=== PATIENT | male | born 1950 | race Caucasian/White ===

== ENCOUNTER 2017-11-16 12:29 | Inpatient (IN) | payer OTHER, BC ==
--- NOTE | 2017-11-16 12:36 | PDOC ---
History of Present Illness - General Stated Complaint: FALL,TINGLING RIGHT LEG Time Seen by Provider: 11/16/17 12:36 - History of Present Illness Initial Comments: 11/16/17 12:37 Mr. Garber is a 67 yo male w/ pmh of prostate cancer, rheumatoid arthritis, osteoarthritis, herniated discs, HLD, prostate cancer (in remission) who presents for evaluation of fall last night. [place] experienced sudden onset right leg weakness and fell, striking his head. He then went home and fell again while urinating as his leg again became weak. Mr. Garber hit his head when he fell last night. He reports he has had 2 weeks of intermittent loss of bowel control as well and is currently unable to raise his leg at all from the bed. Additionally, he reports occasional diarrhea and has noticed blood intermixed with his stool at times. The patient denies chest pain, shortness of breath, headache and dizziness. Denies fever, chills, nausea, vomit, diarrhea and constipation. Denies dysuria, frequency, urgency and hematuria. Allergies: Penicillins Past History - Past Medical History Allergies/Adverse Reactions: Allergies Allergy/AdvReac Type Severity Reaction Status Date / Time Penicillins Allergy Verified 11/16/17 12:40 Home Medications: Ambulatory Orders Alprazolam [Xanax] 8 mg PO HS 07/15/15 Olanzapine 10 mg PO DAILY 07/15/15 Oxycodone HCl/Acetaminophen [Oxycodone-Acetaminophen 10-325] 1 each PO TID 07/14 Simvastatin [Zocor -] 20 mg PO DAILY 07/15/15 Nicotine Patch [Nicoderm Patch -] 14 mg TD DAILY #30 patch 07/19/15 Anemia: No Asthma: No Cancer: Yes (BASAL CELL, PROSTATE CA) Cardiac Disorders: No CVA: No COPD: No CHF: No Dementia: No Diabetes: No GI Disorders: Yes (RECTAL BLEEDING, COLON POLYP) Disorders: Yes (PROSTATE CA SEEDING AND RADIATION) HTN: Yes Hypercholesterolemia: Yes Liver Disease: No Seizures: No Thyroid Disease: No - Surgical History Abdominal Surgery: Yes (HERNIA REPAIR 2007) Appendectomy: No Cardiac Surgery: No Cholecystectomy: No Lung Surgery: No Neurologic Surgery: No Orthopedic Surgery: No - Suicide/Smoking/Psychosocial Hx Smoking History: Current every day smoker Have you smoked in the past 12 months: Yes Number of Cigarettes Smoked Daily: 10 'Breaking Loose' booklet given: 02/22/12 Hx Alcohol Use: No Drug/Substance Use Hx: No Substance Use Type: None Hx Substance Use Treatment: No Review of Systems - Review of Systems Comments:: 11/16/17 12:38 GENERAL/CONSTITUTIONAL: No fever or chills. HEAD, EYES, EARS, NOSE AND THROAT: No change in vision. No ear pain or discharge. No sore throat. CARDIOVASCULAR: No chest pain or shortness of breath RESPIRATORY: No cough, wheezing, or hemoptysis. GASTROINTESTINAL: +Intermittent loss of bowel control for 2 weeks. Some diarrhea with occasional blood. No nausea, vomiting, or constipation. GENITOURINARY: No dysuria, frequency, or change in urination. MUSCULOSKELETAL: +Right leg weakness as described SKIN: No rash NEUROLOGIC: No headache, vertigo, loss of consciousness, or change in strength/ sensation. ENDOCRINE: No increased thirst. No abnormal weight change HEMATOLOGIC/LYMPHATIC: No anemia, easy bleeding, or history of blood clots. ALLERGIC/IMMUNOLOGIC: No hives or skin allergy. *Physical Exam - Physical Exam Comments: 11/16/17 12:38 GENERAL: Awake, alert, and fully oriented, in no acute distress HEAD: +Gary on R forehead where patient hit head last night. Normocephalic EYES: PERRLA, EOMI, sclera anicteric, conjunctiva clear ENT: Auricles normal inspection, hearing grossly normal, nares patent, oropharynx clear without exudates. Moist mucosa NECK: Normal ROM, supple, no lymphadenopathy, JVD, or masses LUNGS: No distress, speaks full sentences, clear to auscultation bilaterally HEART: Regular rate and rhythm, normal S1 and S2, no murmurs, rubs or gallops, peripheral pulses normal and equal bilaterally. ABDOMEN: Soft, nontender, normoactive bowel sounds. No guarding, no rebound. No masses EXTREMITIES: +Babinski downgoing on Left side, unable to elicit response on R side. Sensation intact however patient unable to raise leg above bed. Some effort against gravity only. Some rectal tone appreciated however not strong. NEUROLOGICAL: Cranial nerves II through XII grossly intact. Speech at baseline per . SKIN: Warm, Dry, normal turgor, no rashes or lesions noted. ED Treatment Course - LABORATORY CBC & Chemistry Diagram: 11/16/17 13:23 11/16/17 13:23 Medical Decision Making - Medical Decision Making 11/16/17 13:40 Mr. Garber is a 67 yo male w/ pmh as described who presents for evaluation of right leg weakness and bowel control loss concerning for cord compression. Workup started for admission and MRI ordered for further evaluation. 2mg versed given to help patient tolerate MRI. 11/16/17 15:[address] Wood Gregory (covering for Dr. Bhatti who admits for PCP Yuly). 11/16/17 16:[address] Gregory who agrees with admission and requested consult to Neurosurgery. Call placed to Dr. Maza. 11/16/17 17:39 Discussed and examined patient with Dr. Maza who believe MRI C / T spine indicated. Call placed to Dr. Gregory for notification. 11/16/17 17:56 MRI cervical and thoracic spine ordered. Patient given 4mg IV versed for sedation as 2mg was barely sufficient for L spine. 11/16/17 18:08 Dr. Gregory made aware of NS consultation results and that patient will be receiving additional MRIs. *DC/Admit/Observation/Transfer Diagnosis at time of Disposition: Leg weakness Qualifiers: Laterality: right Qualified Code(s): R29.898 - Other symptoms and signs involving the musculoskeletal system Bowel incontinence Qualifiers: Fecal incontinence type: unspecified Qualified Code(s): R15.9 - Full incontinence of feces - Discharge Dispostion Decision to Admit order: Yes - Referrals - Patient Instructions - Post Discharge Activity
--- NOTE | 2017-11-16 12:39 | PDOC ---
Attending Attestation - Resident Resident Name: SamueltonoAv scott - HPI HPI: 11/16/17 14:56 Pt presents to the ED complaining of R leg pain, numbness and weakness for two weeks. Also complaining of intermittent fecal incontinence that has been worsening in the last few days. The patient's reports that he has had issues with his mobility and that they live in a third floor walk up. - Physicial Exam PE: 11/16/17 15:19 Agree with resident exam. Patient has strange affect, but is alert and oriented x 3. Unable to straight leg raise against gravity. 4/5 great toe extension. 5/5 knee flexion. - Medical Decision Making 11/16/17 15:23 Pt presents to the ED complaining of symptoms that are suggestive of subacute cord compression. Will check MRI to evaluate for cord compression. will admit to medicine for physical therapy evaluation, since patient is unable to ambulate and lives in a third floor walk up.
[2017-11-16 12:40] VITALS: BMI 25.8
[2017-11-16 13:39] LABS: BASO % 0.7 % (0-2.0); EOS % 3.7 % (0-4.5); HEMATOCRIT 34.1 % (35.4-49); HEMOGLOBIN 11.5 GM/dL (11.7-16.9); LYMPH % 19.9 % (8-40); MCH 30.7 pg (25.7-33.7); MCHC 33.6 g/dl (32.0-35.9); MEAN CELL VOLUME 91.4 fl (80-96); MEAN PLT VOLUME 6.9 fl (7.5-11.1); MONO % 7.5 % (3.8-10.2); NEUT % 68.2 % (42.8-82.8); PLATELET COUNT 253 K/MM3 (134-434); RBC 3.73 M/mm3 (4.00-5.60); RDW 13.5 % (11.9-15.9); WHITE BLOOD COUNT 12.4 K/mm3 (4.0-10.0)
[2017-11-16 13:57] LABS: INR 1.03 (0.82-1.09); PROTHROMBIN TIME (PATIENT) 11.6 SEC (9.7-13.0)
[2017-11-16 13:59] LABS: ACTIVATED PTT 29.4 SECONDS (25.2-36.5)
[2017-11-16 14:04] LABS: URINE APPEARANCE CLEAR; URINE BILIRUBIN NEGATIVE (<2.0 mg/dL); URINE COLOR LTYELLOW; URINE GLUCOSE (UA) NEGATIVE (NEGATIVE); URINE KETONE NEGATIVE (NEGATIVE); URINE LEUK ESTERASE NEGATIVE (NEGATIVE); URINE NITRITE NEGATIVE (NEGATIVE); URINE PROTEIN NEGATIVE (NEGATIVE); URINE UROBILINOGEN NEGATIVE mg/dL (0.2-1.0)
[2017-11-16 14:22] LABS: ALBUMIN 3.3 g/dl (3.4-5.0); ANION GAP 8 (8-16); BILIRUBIN,TOTAL 0.3 mg/dL (0.2-1.0); BLOOD UREA NITROGEN 17 mg/dL (7-18); CALCIUM 8.6 mg/dL (8.5-10.1); CHLORIDE 110 mmol/L (98-107); CO2 22 mmol/L (21-32); CREATININE 1.2 mg/dL (0.7-1.3); GLUCOSE,RANDOM 97 mg/dL (74-106); POTASSIUM 4.1 mmol/L (3.5-5.1); SGOT/AST 28 U/L (15-37); SGPT/ALT 33 U/L (12-78); SODIUM 140 mmol/L (136-145); TOT PROT 7.2 g/dl (6.4-8.2)
[2017-11-16 14:24] LABS: ALK PHOS 137 U/L (45-117)
[2017-11-16] MEDS ORDERED: MIDAZOLAM HCL 2 MG/2 ML SINGLE DOSE VIAL IVPUSH ONE ×2 (15:20→17:50)
[2017-11-16] MEDS ORDERED: MIDAZOLAM HCL 2 MG/2 ML SINGLE DOSE VIAL ONE ×2 (15:27→17:58)
[2017-11-16] MEDS: oxyCODONE HCL 5 MG TABLET PO SCH (21:59)
[2017-11-16] MEDS ORDERED: PATIENT'S OWN MEDICATION (NON-FORMULARY) (Oxycodone Hcl/Acetaminophen [Oxycodone-Acetamino PO SCH (22:00)
[2017-11-16] MEDS: ACETAMINOPHEN 325 MG TABLET (FP) PO SCH (22:00)
[2017-11-16] MEDS: ALPRAZolam 0.25 MG TABLET PO SCH (22:01)
--- NOTE | 2017-11-16 23:13 | CONSULT ---
Consult - text type - Consultation Consultation Note: NEUROSURGERY CONSULTATION Sin Garber is a 67 year old male with a history of Prostate CA who presented to the [facility] ER with a history of 3 months of progressive gait difficulty culminating in a 3 day history of profound Right leg weakness and bowel incontinence. He fell today and struck his head with no loss of consciousness. The patient was noted to have little movement in his Right leg and MRI Lumbar was obtained which did not reveal compressive pathology and only mild degenerative changes. Upon further questioning, the patient describes symptoms of Cervical myelopathy with numbness and tingling in his hands and loss of fine motor skills. He has intermittent Right sided neck and shoulder pains and also has been complaining of Right Thoracic and posterior chest wall pains. MRI Cervical and Thoracic were ordered and the patient was admitted for further evaluation. Upon my examination, his Right leg strength had improved somewhat and he had marked hyperreflexia in the Left lower extremity. Differential diagnosis includes: Metastatic disease with cord compression, degenerative spondylosis in the Cervical or Thoracic spine and possible spinal vascular malformation. Will evaluate the imaging to determine the potential role of Neurosurgical intervention.
[2017-11-17] MEDS: ESCITALOPRAM OXALATE 20 MG TABLET (FP) PO SCH ×2 (01:13→21:57)
[2017-11-17] MEDS: QUEtiapine FUMARATE 200 MG TABLET PO SCH ×2 (01:13→21:57)
[2017-11-17] MEDS: oxyCODONE HCL 5 MG TABLET PO SCH (06:04)
[2017-11-17] MEDS: ACETAMINOPHEN 325 MG TABLET (FP) PO SCH ×3 (06:05→22:02)
[2017-11-17 09:09] LABS: EOS % 6.2 % (0-4.5); HEMATOCRIT 34.6 % (35.4-49); HEMOGLOBIN 11.6 GM/dL (11.7-16.9); LYMPH % 38.3 % (8-40); MCHC 33.6 g/dl (32.0-35.9); MEAN CELL VOLUME 92.3 fl (80-96); MEAN PLT VOLUME 7.3 fl (7.5-11.1); MONO % 8.3 % (3.8-10.2); NEUT % 46.2 % (42.8-82.8); PLATELET COUNT 255 K/MM3 (134-434); RBC 3.75 M/mm3 (4.00-5.60); RDW 13.7 % (11.9-15.9); WHITE BLOOD COUNT 8.8 K/mm3 (4.0-10.0)
[2017-11-17 09:40] LABS: ANION GAP 8 (8-16); BLOOD UREA NITROGEN 15 mg/dL (7-18); CALCIUM 8.5 mg/dL (8.5-10.1); CHLORIDE 110 mmol/L (98-107); CO2 25 mmol/L (21-32); CREATININE 1.1 mg/dL (0.7-1.3); GLUCOSE,RANDOM 94 mg/dL (74-106); POTASSIUM 3.7 mmol/L (3.5-5.1); SODIUM 143 mmol/L (136-145)
--- NOTE | 2017-11-17 10:10 | EKG ---
Test Reason : Blood Pressure : / mmHG Vent. Rate : 050 BPM Atrial Rate : 050 BPM P-R Int : 176 ms QRS Dur : 152 ms QT Int : 520 ms P-R-T Axes : 021 -17 016 degrees QTc Int : 474 ms SINUS BRADYCARDIA RIGHT BUNDLE BRANCH BLOCK ABNORMAL ECG WHEN COMPARED WITH ECG OF 16-JUL-2015 10:17, NONSPECIFIC T WAVE ABNORMALITY NOW EVIDENT IN ANTERIOR LEADS Confirmed by MAGNO GARCIA MD ([id number]) on 11/17/2017 10:09:48 AM Referred By: Confirmed By:MAGNO GARCIA MD
--- NOTE | 2017-11-17 10:20 | HP ---
Admitting History and Physical - Primary Care Physician PCP: Star Emery - Admission Chief Complaint: Frequent falls History of Present Illness: 67 yrs old man lives at home H/O Depression Bipolar disorders, Rheumatic arthritis not on any medication except pain meds, Ca Prostate in remission, poor historian, as per patient night before hospitalization midnight he [place]ing area felt weak and fell down on the concrete pavement, no LOC, chest pain or palpitation denies any SOB Police came to help him getting up he walked till parking anfd came home, his friend drive him to home again while walking fell down and noticed he cant Lift Rt LE due to pain and weakness , came to Ed for evaluation on arrival to ED also c/o ongoing fecal incontinence for past few months considering possibility of Subacute cord compression admitted to R/O cord compression,, evaluated by Neurosurgery and MRI [facility] shows chronic and Herniated disk no cord compression, CT haed shows no hematoma or hemorrhage, today at the time of examination patient c /o weakness and pain RT HIp area, no c/o fever, chills, nausea or vomiting. History Source: Patient - Past Medical History HOSIERY PAIRER: Yes: Peripheral Neuropathy Cardiovascular: Yes: HTN Renal/: Yes: Cancer (prostate (s/p RT)) Heme/Onc: Yes: Other (Ca Prostate) Psych: Yes: Anxiety, Bipolar, Depression Musculoskeletal: Yes: Chronic low back pain (/ spinal stenosis) Rheumatology: Yes: Rheumatoid Arthritis Dermatology: Yes: Basal Cell (-s/p multiple removals) - Past Surgical History Past Surgical History: Yes: Cataract Removal, Hernia Repair (umbilical, inguinal hernia repair) - Advance Directives Advance Directives: Yes: Health Care Proxy - Smoking History Smoking history: Current every day smoker Have you smoked in the past 12 months: Yes Aproximately how many cigarettes per day: 10 - Alcohol/Substance Use Hx Alcohol Use: No - Social History 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 Home Medications - Allergies Allergies/Adverse Reactions: Allergies Allergy/AdvReac Type Severity Reaction Status Date / Time Penicillins Allergy Verified 11/16/17 12:40 - Home Medications Home Medications: Ambulatory Orders Alprazolam [Xanax] 8 mg PO HS 07/15/15 Simvastatin [Zocor -] 20 mg PO DAILY 07/15/15 Escitalopram Oxalate [Lexapro -] 20 mg PO HS 11/16/17 Quetiapine Fumarate [Seroquel] 200 mg PO HS 11/16/17 Family Disease History - Family Disease History Family Disease History: CA: Mother, Other: Daughter (autism) Review of Systems - Review of Systems Constitutional: denies: Chills, Diaphoresis, Fever HENT: denies: Difficult Swallowing, Ear Discharge, Ear Pain Neck: reports: Pain on Movement. denies: Decreased ROM, Lumps, Stiffness Cardiovascular: denies: Chest Pain, Edema, Palpitations, Shortness of Breath Respiratory: denies: Cough, Exercise Intolerance, Hemoptysis Gastrointestinal: denies: Abdominal Pain, Bloating, Constipation, Diarrhea Genitourinary: denies: Burning, Discharge, Dysuria Musculoskeletal: denies: Back Pain, Decreased ROM, Extremity Pain, Joint Pain ( Rt HIP) Endocrine: denies: Excessive Sweating, Flushing, Increased Hunger Hematology/Lymphatic: denies: Easily Bruised, Excessive Bleeding Psychiatric: reports: Altered Sleep Pattern, Anxiety Pain Intensity: 5 Physical Examination Vital Signs: Vital Signs Temperature 98.7 F 11/17/17 06:00 Pulse Rate 49 L 11/17/17 06:00 Respiratory Rate 18 11/17/17 06:00 Blood Pressure 113/71 11/17/17 06:00 O2 Sat by Pulse Oximetry (%) 95 11/16/17 21:00 Elderly man not in acute Distress c/o pain Rt Hip and Groin HEENT: Bruise on Rt Fore Head, no ENT Hemorrhage, No anemia, PERRLA EOMI. NECK: No JVD No Bruit, supple mild pain CHEST: Non tender CTA B/L CVS: S1S2 R no m/g/R ABD: No distention, non tender BS + EXT: Abrasions +, no lorrie afeet, no calf tenderness Pulses + HOSIERY PAIRER: AOx3, Cranial N Intact, SPeech Fluent Motor B/L UE 5/5 Left LE 5/5 RT LE: ankle 5/5, Knee 5/5: Hip Limited due to pain Tendon reflex Knee Intact ankle indeterminate Planter B/L Flexors Sensory Intact, no saddle anaesthesia Labs: CBC, BMP 11/17/17 08:10 11/17/17 08:10 Imaging - Results X-ray: Report Reviewed (No Caute Chnages) Cat Scan: Report Reviewed (HEad; no acute intracranial changes) MRI: Report Reviewed (Cervicle, Thoracic and Lumbar spine; DJD Herniated disc no cord compression.) EKG: Report Reviewed (No acute St T chnages) Other: Report Reviewed (Hip and Pelvis Arthritic changes RT> Left) Problem List - Problems (1) Weakness of right lower extremity Assessment/Plan: Considering -ve W/u imaging and symptoms started after fall , weakness around hip is more pronounced with pain will F/U CT Rt Hip to R/O fracture, bed rest fall precautions, PT evaluation will F/U Neurology anfd Neurosurgery input. Code(s): R29.898 - OTH SYMPTOMS AND SIGNS INVOLVING THE MUSCULOSKELETAL SYSTEM (2) Falls frequently Assessment/Plan: Chronic due to arthritis and poor Giat PT Evaluation, fall precautions Code(s): R29.6 - REPEATED FALLS (3) Depression Assessment/Plan: cont all home medication on high dose of seroquel and Lexapro Code(s): F32.9 - MAJOR DEPRESSIVE DISORDER, SINGLE EPISODE, UNSPECIFIED (4) Carcinoma of prostate Assessment/Plan: In remission Code(s): C61 - MALIGNANT NEOPLASM OF PROSTATE (5) Arthritis Assessment/Plan: RA ? will confirm with PMD cont pain medications. Code(s): M19.90 - UNSPECIFIED OSTEOARTHRITIS, UNSPECIFIED SITE
[2017-11-17] MEDS ORDERED: PT OWN MED DRAWER 7, Y5N ONE (10:25)
[2017-11-17] MEDS: OLANZapine 10 MG TABLET PO SCH (10:28)
[2017-11-17] MEDS: ENOXAPARIN NA (PORCINE) 40 MG/0.4 ML DISP.SYRIN SQ SCH (10:28)
[2017-11-17] MEDS: NICOTINE 14 MG/24 HOURS TOPICAL PATCH TD SCH (10:28)
--- NOTE | 2017-11-17 12:14 | CONSULT ---
Consult - text type - Consultation Consultation Note: Neurology History of Present Illness 67 yo male w/ pmh of prostate cancer, rheumatoid arthritis, osteoarthritis, herniated discs, HLD, prostate cancer (in remission) who presented for evaluation of fall night prior to admission. [place] experienced sudden onset right leg weakness and fell, striking his head. He then went home and fell again while urinating as his leg again became weak. He reported he has had 2 weeks of intermittent loss of bowel control as well and is currently unable to raise his leg at all from the bed. However to me he endorsed over 1 year of gradual and progressive weakness of RLE. MRI L spine completed, reviewed, and discussed. Prominent L5/S1 central and b/l disc herniation R>L. Nsgy note reviewed, will revaluate after reviewing imaging. Past History - Past Medical History Allergies/Adverse Reactions: Allergies Allergy/AdvReac Type Severity Reaction Status Date / Time Penicillins Allergy Verified 11/16/17 12:40 Home Medications: Ambulatory Orders Alprazolam [Xanax] 8 mg PO HS 07/15/15 Olanzapine 10 mg PO DAILY 07/15/15 Oxycodone HCl/Acetaminophen [Oxycodone-Acetaminophen 10-325] 1 each PO TID 07/14 Simvastatin [Zocor -] 20 mg PO DAILY 07/15/15 Nicotine Patch [Nicoderm Patch -] 14 mg TD DAILY #30 patch 07/19/15 Anemia: No Asthma: No Cancer: Yes (BASAL CELL, PROSTATE CA) Cardiac Disorders: No CVA: No COPD: No CHF: No Dementia: No Diabetes: No GI Disorders: Yes (RECTAL BLEEDING, COLON POLYP) Disorders: Yes (PROSTATE CA SEEDING AND RADIATION) HTN: Yes Hypercholesterolemia: Yes Liver Disease: No Seizures: No Thyroid Disease: No - Surgical History Abdominal Surgery: Yes (HERNIA REPAIR 2007) Appendectomy: No Cardiac Surgery: No Cholecystectomy: No Lung Surgery: No Neurologic Surgery: No Orthopedic Surgery: No - Suicide/Smoking/Psychosocial Hx Smoking History: Current every day smoker Have you smoked in the past 12 months: Yes Number of Cigarettes Smoked Daily: 10 'Breaking Loose' booklet given: 02/22/12 Hx Alcohol Use: No Drug/Substance Use Hx: No Substance Use Type: None Hx Substance Use Treatment: No Review of Systems GENERAL/CONSTITUTIONAL: No fever or chills. HEAD, EYES, EARS, NOSE AND THROAT: No change in vision. No ear pain or discharge. No sore throat. CARDIOVASCULAR: No chest pain or shortness of breath RESPIRATORY: No cough, wheezing, or hemoptysis. GASTROINTESTINAL: +Intermittent loss of bowel control for 2 weeks. Some diarrhea with occasional blood. No nausea, vomiting, or constipation. GENITOURINARY: No dysuria, frequency, or change in urination. MUSCULOSKELETAL: +Right leg weakness as described SKIN: No rash NEUROLOGIC: No headache, vertigo, loss of consciousness, or change in strength/ sensation. ENDOCRINE: No increased thirst. No abnormal weight change HEMATOLOGIC/LYMPHATIC: No anemia, easy bleeding, or history of blood clots. ALLERGIC/IMMUNOLOGIC: No hives or skin allergy. *Physical Exam Vital Signs Temperature 98.7 F 11/17/17 06:00 Pulse Rate 49 L 11/17/17 06:00 Respiratory Rate 18 11/17/17 06:00 Blood Pressure 113/71 11/17/17 06:00 O2 Sat by Pulse Oximetry (%) 95 11/16/17 21:00 GENERAL: Awake, alert, and fully oriented, in no acute distress HEAD: +Gary on R forehead where patient hit head last night. Normocephalic EYES: PERRLA, EOMI, sclera anicteric, conjunctiva clear ENT: Auricles normal inspection, hearing grossly normal, nares patent, oropharynx clear without exudates. Moist mucosa NECK: Normal ROM, supple, no lymphadenopathy, JVD, or masses LUNGS: No distress, speaks full sentences, clear to auscultation bilaterally HEART: Regular rate and rhythm, normal S1 and S2, no murmurs, rubs or gallops, peripheral pulses normal and equal bilaterally. ABDOMEN: Soft, nontender, normoactive bowel sounds. No guarding, no rebound. No masses EXTREMITIES: +Babinski downgoing on Left side, unable to elicit response on R side. Sensation intact however patient unable to raise leg above bed. Some effort against gravity only. Some rectal tone appreciated however not strong. NEUROLOGICAL: Cranial nerves II through XII grossly intact. Speech at baseline, UE 5/5, LLE 5-/5, RLE 1-2+/5. Sensory intact, gait deferred SKIN: Warm, Dry, normal turgor, no rashes or lesions noted. CBCD WBC 8.8 K/mm3 (4.0-10.0) 11/17/17 08:10 RBC 3.75 M/mm3 (4.00-5.60) L 11/17/17 08:10 Hgb 11.6 GM/dL (11.7-16.9) L 11/17/17 08:10 Hct 34.6 % (35.4-49) L 11/17/17 08:10 MCV 92.3 fl (80-96) 11/17/17 08:10 MCHC 33.6 g/dl (32.0-35.9) 11/17/17 08:10 RDW 13.7 % (11.9-15.9) 11/17/17 08:10 Plt Count 255 K/MM3 (134-434) 11/17/17 08:10 MPV 7.3 fl (7.5-11.1) L 11/17/17 08:10 CMP Sodium 143 mmol/L (136-145) 11/17/17 08:10 Potassium 3.7 mmol/L (3.5-5.1) 11/17/17 08:10 Chloride 110 mmol/L (98-107) H 11/17/17 08:10 Carbon Dioxide 25 mmol/L (21-32) 11/17/17 08:10 Anion Gap 8 (8-16) 11/17/17 08:10 BUN 15 mg/dL (7-18) 11/17/17 08:10 Creatinine 1.1 mg/dL (0.7-1.3) 11/17/17 08:10 Creat Clearance w eGFR > 60 (>60) 11/17/17 08:10 Random Glucose 94 mg/dL (74-106) 11/17/17 08:10 Calcium 8.5 mg/dL (8.5-10.1) 11/17/17 08:10 Total Bilirubin 0.3 mg/dL (0.2-1.0) 11/16/17 13:23 AST 28 U/L (15-37) D 11/16/17 13:23 ALT 33 U/L (12-78) D 11/16/17 13:23 Alkaline Phosphatase 137 U/L (45-117) H 11/16/17 13:23 Total Protein 7.2 g/dl (6.4-8.2) 11/16/17 13:23 Albumin 3.3 g/dl (3.4-5.0) L 11/16/17 13:23 CARDIAC ENZYMES Creatine Kinase 141 IU/L (39-308) 11/16/17 13:23 Troponin I < 0.02 ng/ml (0.00-0.05) 11/16/17 13:23 Imaging MRI L spine reviewed Medical Decision Making 67 yo male w/ pmh of prostate cancer, rheumatoid arthritis, osteoarthritis, herniated discs, HLD, prostate cancer (in remission) who presented for evaluation of fall night prior to admission. [place] onset right leg weakness and fell, striking his head. He then went home and fell again while urinating as his leg again became weak. He reported he has had 2 weeks of intermittent loss of bowel control as well and is currently unable to raise his leg at all from the bed. However to me he endorsed over 1 year of gradual and progressive weakness of RLE. MRI L spine completed, reviewed, and discussed. Prominent L5/S1 central and b/l disc herniation R>L. Nsgy note reviewed, will revaluate after reviewing imaging. Follow up NSGY recommendations. Defer to NSGY on steroid initiation, consider decadron if indicated. Will start low dose gabapentin for now. Pt/Ot as tolerated. Fall precautions.
[2017-11-17] MEDS: GABAPENTIN 300 MG CAPSULE (FP) PO SCH ×2 (14:27→21:57)
[2017-11-17] MEDS: ATORVASTATIN CA 10 MG TABLET (FP) PO SCH (21:57)
[2017-11-17] MEDS: ALPRAZolam 0.25 MG TABLET PO SCH (21:58)
[2017-11-18 06:41] LABS: BASO % 0.8 % (0-2.0); HEMATOCRIT 33.9 % (35.4-49); HEMOGLOBIN 11.5 GM/dL (11.7-16.9); MCH 31.3 pg (25.7-33.7); MCHC 33.9 g/dl (32.0-35.9); MEAN CELL VOLUME 92.3 fl (80-96); MEAN PLT VOLUME 7.2 fl (7.5-11.1); MONO % 8.6 % (3.8-10.2); NEUT % 50.6 % (42.8-82.8); PLATELET COUNT 239 K/MM3 (134-434); RBC 3.67 M/mm3 (4.00-5.60); RDW 13.8 % (11.9-15.9); WHITE BLOOD COUNT 9.4 K/mm3 (4.0-10.0)
[2017-11-18] MEDS: GABAPENTIN 300 MG CAPSULE (FP) PO SCH ×3 (06:55→21:02)
[2017-11-18] MEDS: ACETAMINOPHEN 325 MG TABLET (FP) PO SCH ×3 (06:55→21:02)
[2017-11-18 07:06] LABS: ANION GAP 7 (8-16); BLOOD UREA NITROGEN 17 mg/dL (7-18); CALCIUM 8.4 mg/dL (8.5-10.1); CHLORIDE 112 mmol/L (98-107); CO2 24 mmol/L (21-32); CREATININE 1.1 mg/dL (0.7-1.3); GLUCOSE,RANDOM 108 mg/dL (74-106); POTASSIUM 3.9 mmol/L (3.5-5.1); SODIUM 143 mmol/L (136-145)
[2017-11-18] MEDS: ENOXAPARIN NA (PORCINE) 40 MG/0.4 ML DISP.SYRIN SQ SCH (09:24)
[2017-11-18] MEDS: NICOTINE 14 MG/24 HOURS TOPICAL PATCH TD SCH (09:24)
[2017-11-18] MEDS: OLANZapine 10 MG TABLET PO SCH (09:25)
--- NOTE | 2017-11-18 09:53 | PN ---
Progress Note (short form) - Note Progress Note: Dr. Bhatti to document today. Still RUE and RLE weakness and increased pain right groin. May need MRI Head.
[2017-11-18] MEDS: oxyCODONE HCL 5 MG TABLET PO PRN ×2 (12:52→21:02)
--- NOTE | 2017-11-18 14:09 | PN ---
Progress Note, Physician Chief Complaint: Mr Garber complains of pain in his groin and RLE. No cp, sob, n/v. - Current Medication List Current Medications: Active Medications Acetaminophen (Tylenol -) 325 mg PO TID [facility] Last Admin: 11/18/17 06:55 Dose: 325 mg Alprazolam (Xanax -) 0.5 mg PO [facility] Last Admin: 11/17/17 21:58 Dose: 0.5 mg Atorvastatin Calcium (Lipitor -) 10 mg PO [facility] Last Admin: 11/17/17 21:57 Dose: 10 mg Enoxaparin Sodium (Lovenox -) 40 mg SQ DAILY [facility] Last Admin: 11/18/17 09:24 Dose: 40 mg Escitalopram Oxalate (Lexapro -) 20 mg PO [facility] Last Admin: 11/17/17 21:57 Dose: 20 mg Gabapentin (Neurontin -) 300 mg PO TID [facility] Last Admin: 11/18/17 06:55 Dose: 300 mg Nicotine (Nicoderm Patch -) 14 mg TD DAILY [facility] Last Admin: 11/18/17 09:24 Dose: 14 mg Olanzapine (Zyprexa -) 10 mg PO DAILY [facility] Last Admin: 11/18/17 09:25 Dose: 10 mg Oxycodone HCl (Roxicodone -) 5 mg PO Q8H PRN PRN Reason: PAIN LEVEL 6-10 Last Admin: 11/18/17 12:52 Dose: 5 mg Quetiapine Fumarate (Seroquel -) 200 mg PO [facility] Last Admin: 11/17/17 21:57 Dose: 200 mg - Objective Vital Signs: Vital Signs Temperature 36.4 C L 11/18/17 10:14 Pulse Rate 72 11/18/17 10:14 Respiratory Rate 20 11/18/17 10:14 Blood Pressure 137/87 11/18/17 10:14 O2 Sat by Pulse Oximetry (%) 95 11/17/17 21:00 Constitutional: Yes: Well Nourished, No Distress, Calm Cardiovascular: Yes: Regular Rate and Rhythm. No: Gallop, Murmur, Rub Respiratory: Yes: Regular, CTA Bilaterally. No: Rales, Rhonchi, Wheezes Gastrointestinal: Yes: Normal Bowel Sounds, Soft. No: Distention, Tenderness Extremities: Yes: WNL Edema: No Labs: CBC, BMP 11/18/17 05:55 11/18/17 05:55 INR, PTT INR 1.03 (0.82-1.09) 11/16/17 13:23 Problem List - Problems (1) Weakness of right lower extremity Assessment/Plan: -appreciate neurology and neurosurgery assistance -agree with gabapentin -MRI read reviewed -lower suspicion for infectious process, but possible early per MRI -will check ESR and CRP -consult ID -hold on starting antibiotics at this time, no signs of sepsis Code(s): R29.898 - OTH SYMPTOMS AND SIGNS INVOLVING THE MUSCULOSKELETAL SYSTEM (2) Bowel incontinence Assessment/Plan: -sounds chronic -MRI not showing emergent signs -monitor Code(s): R15.9 - FULL INCONTINENCE OF FECES Qualifiers: Fecal incontinence type: unspecified Qualified Code(s): R15.9 - Full incontinence of feces (3) Carcinoma of prostate Assessment/Plan: -continue outpatient follow up Code(s): C61 - MALIGNANT NEOPLASM OF PROSTATE (4) Falls frequently Assessment/Plan: -neurosurgery and neurology following -PT consult Code(s): R29.6 - REPEATED FALLS (5) HLD (hyperlipidemia) Assessment/Plan: -continue statin Code(s): E78.5 - HYPERLIPIDEMIA, UNSPECIFIED (6) Depression Assessment/Plan: -continue home regimen Code(s): F32.9 - MAJOR DEPRESSIVE DISORDER, SINGLE EPISODE, UNSPECIFIED
--- NOTE | 2017-11-18 14:54 | PN ---
Progress Note (short form) - Note Progress Note: ID consult dictated imp/reccd 67 year old man admitted after 2 falls in the last one [place], second fall at home, reports losing his balance no loss of consciousness no fevers or chills sometimes he is constipated, sometimes he has diarrhea no dental work recent trip to [place] in July no back pain has pain in his right hip only asked to evaluate for possible early discitis reported on MRI at T8/9 no recent infections no recent antibiotics will get screening blood cultures, esr/crp ordered (has had elevated esr in the past) MRI d/w Dr Baird- nothing to suggest infection at this time Problem List - Problems (1) Abnormal MRI, thoracic spine Code(s): R93.7 - ABNORMAL FINDINGS ON DIAGNOSTIC IMAGING OF PRT MS SYS
--- NOTE | 2017-11-18 20:03 | CONS ---
INFECTIOUS DISEASE CONSULTATION DATE OF CONSULTATION: DATE OF DICTATION: 11/18/2017 REQUESTING PHYSICIAN: Loyd Bhatti MD This is a 67-year-old man. 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 He fell [place] he [place] the [place], and then, he fell after he went home. Neither time did he have loss of consciousness. He reports losing balance. He denies any fevers or chills. He has had hip pain since that time. There have been no associated fevers or chills. He has no back pain. He reports a recent trip to [place] in July. He has had no dental work. He has had no loss of consciousness and reports sometimes depending on what he eats, he has constipation or he has diarrhea. We are asked to evaluate him for an MRI reading of possible early diskitis, T8-9 reported on his MRI. He has had no recent infections. He has had no recent antibiotics. PAST MEDICAL HISTORY: Notable for peripheral neuropathy, hypertension, prostate cancer, depression, bipolar disorder, anxiety, chronic low back pain, rheumatoid arthritis, basal cell cancer. He has had a cataract removal and a hernia repair in the past. SOCIAL HISTORY: He is an active smoker. He used to drink alcohol, but he stopped several years ago and does not drink anymore. 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 He lives at home with his . ALLERGIES: He is allergic to PENICILLIN. MEDICATIONS AT HOME: Include Xanax, Zocor, Lexapro, and Seroquel. FAMILY HISTORY: Notable for cancer in his mother. REVIEW OF SYSTEMS: He denies any weight loss. He denies fevers, chills, nausea, vomiting. He has had this alternating constipation and sometimes diarrhea based on what he eats. He denies to me any incontinence, and he denies back pain but complains of hip pain. PHYSICAL EXAMINATION: General: He is awake and alert. Vital Signs: Temperature is 97.5, pulse is 72, blood pressure 137/87, respiratory rate is 20. HEENT: He is normocephalic. His eyes are anicteric. Neck: Supple. Lungs: Clear to auscultation. Heart: Regular rate and rhythm. Abdomen: Soft, nontender. Musculoskeletal: He has no spinal tenderness along his back. He has pain on touching his right hip. His extremities are without edema. LABORATORY DATA ON ADMISSION: White count was 12.4, now is 9.4; platelets are 239; hemoglobin is 11.5. BUN is 17 and creatinine 1.1. Alkaline phosphatase is 137. CRP of 2.3. ESR is pending. Urinalysis is negative. 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 I reviewed this MRI finding with the neurosurgeon who has been asked to see him, Dr. Garrett, who does not feel that this is infectious. He had multiple other imaging studies including lumbar/cervical MRI as well as MRI of his hip. In summary, this is a 67-year-old man admitted after 2 falls with hip pain, being evaluated by Neurology and Neurosurgery. There is apparently no evidence of fracture of the hip. Would get screening blood cultures. Sedimentation rate and CRP have been ordered. He has had an elevated sedimentation rate in the past; so, I am not sure how we will use this information. MRI was discussed with Neurosurgery. Nothing to suggest infection at this time. Further recommendations to follow. JUVE MCMILLAN M.D. [id number]
[2017-11-18] MEDS: ALPRAZolam 0.25 MG TABLET PO SCH (21:01)
[2017-11-18] MEDS: ATORVASTATIN CA 10 MG TABLET (FP) PO SCH (21:02)
[2017-11-18] MEDS: ESCITALOPRAM OXALATE 20 MG TABLET (FP) PO SCH (21:02)
[2017-11-18] MEDS: QUEtiapine FUMARATE 200 MG TABLET PO SCH (21:02)
[2017-11-19] MEDS: oxyCODONE HCL 5 MG TABLET PO PRN ×2 (05:59→13:31)
[2017-11-19] MEDS: ACETAMINOPHEN 325 MG TABLET (FP) PO SCH (05:59)
[2017-11-19] MEDS: GABAPENTIN 300 MG CAPSULE (FP) PO SCH ×3 (05:59→21:58)
[2017-11-19] MEDS ORDERED: INSULIN (NOVOLOG) ASPART 100 UNITS/ML 10ML VIAL ONE (06:58)
[2017-11-19 07:25] LABS: BASO % 0.6 % (0-2.0); EOS % 6.3 % (0-4.5); HEMATOCRIT 34.2 % (35.4-49); HEMOGLOBIN 11.6 GM/dL (11.7-16.9); LYMPH % 32.1 % (8-40); MCHC 33.8 g/dl (32.0-35.9); MEAN CELL VOLUME 91.7 fl (80-96); MEAN PLT VOLUME 7.3 fl (7.5-11.1); MONO % 7.9 % (3.8-10.2); NEUT % 53.1 % (42.8-82.8); PLATELET COUNT 260 K/MM3 (134-434); RBC 3.74 M/mm3 (4.00-5.60); WHITE BLOOD COUNT 10.1 K/mm3 (4.0-10.0)
[2017-11-19 07:47] LABS: POTASSIUM 3.7 mmol/L (3.5-5.1)
[2017-11-19 08:46] LABS: CHLORIDE 113 mmol/L (98-107); SODIUM 145 mmol/L (136-145)
[2017-11-19 08:56] LABS: ANION GAP 10 (8-16); BLOOD UREA NITROGEN 13 mg/dL (7-18); CALCIUM 8.2 mg/dL (8.5-10.1); CO2 22 mmol/L (21-32); CREATININE 1.1 mg/dL (0.7-1.3); GLUCOSE,RANDOM 96 mg/dL (74-106); MAGNESIUM 2.1 mg/dL (1.8-2.4); PHOSPHOROUS 2.5 mg/dL (2.5-4.9)
[2017-11-19] MEDS: ENOXAPARIN NA (PORCINE) 40 MG/0.4 ML DISP.SYRIN SQ SCH (09:34)
[2017-11-19] MEDS: NICOTINE 14 MG/24 HOURS TOPICAL PATCH TD SCH (09:34)
[2017-11-19] MEDS: OLANZapine 10 MG TABLET PO SCH (09:34)
--- NOTE | 2017-11-19 09:40 | PN ---
Progress Note (short form) - Note Progress Note: Neurology History of Present Illness 67 yo male w/ pmh of prostate cancer, rheumatoid arthritis, osteoarthritis, herniated discs, HLD, prostate cancer (in remission) who presented for evaluation of fall night prior to admission. He [place] he experienced sudden onset right leg weakness and fell, striking his head. He then went home and fell again while urinating as his leg again became weak. He reported he has had 2 weeks of intermittent loss of bowel control as well and is currently unable to raise his leg at all from the bed. However to me he endorsed over 1 year of gradual and progressive weakness of RLE. MRI L spine completed, reviewed, and discussed. Prominent L5/S1 central and b/l disc herniation R>L. Nsgy note reviewed, planned to revaluate after reviewing imaging. MRI T and L spine also reviewed. Awaiting NSGY follow up. Discussed with primary, unsure if role of steroids now as not in acute setting. Primary plans to connect with NSGY for further clarification and recommendations. Active Medications Acetaminophen (Tylenol -) 325 mg PO TID [facility] Last Admin: 11/19/17 05:59 Dose: 325 mg Alprazolam (Xanax -) 0.5 mg PO [facility] Last Admin: 11/18/17 21:01 Dose: 0.5 mg Atorvastatin Calcium (Lipitor -) 10 mg PO HS [facility] Last Admin: 11/18/17 21:02 Dose: 10 mg Enoxaparin Sodium (Lovenox -) 40 mg SQ DAILY [facility] Last Admin: 11/18/17 09:24 Dose: 40 mg Escitalopram Oxalate (Lexapro -) 20 mg PO [facility] Last Admin: 11/18/17 21:02 Dose: 20 mg Gabapentin (Neurontin -) 300 mg PO TID [facility] Last Admin: 11/19/17 05:59 Dose: 300 mg Nicotine (Nicoderm Patch -) 14 mg TD DAILY [facility] Last Admin: 11/18/17 09:24 Dose: 14 mg Olanzapine (Zyprexa -) 10 mg PO DAILY [facility] Last Admin: 11/18/17 09:25 Dose: 10 mg Oxycodone HCl (Roxicodone -) 5 mg PO Q8H PRN PRN Reason: PAIN LEVEL 6-10 Last Admin: 11/19/17 05:59 Dose: 5 mg Quetiapine Fumarate (Seroquel -) 200 mg PO HS [facility] Last Admin: 11/18/17 21:02 Dose: 200 mg *Physical Exam Vital Signs Temperature 97.6 F 11/19/17 06:15 Pulse Rate 63 11/19/17 06:15 Respiratory Rate 22 11/19/17 06:15 Blood Pressure 134/76 11/19/17 06:15 O2 Sat by Pulse Oximetry (%) 97 11/18/17 21:00 GENERAL: Awake, alert, and fully oriented, in no acute distress HEAD: +Gary on R forehead where patient hit head last night. Normocephalic EYES: PERRLA, EOMI, sclera anicteric, conjunctiva clear ENT: Auricles normal inspection, hearing grossly normal, nares patent, oropharynx clear without exudates. Moist mucosa NECK: Normal ROM, supple, no lymphadenopathy, JVD, or masses LUNGS: No distress, speaks full sentences, clear to auscultation bilaterally HEART: Regular rate and rhythm, normal S1 and S2, no murmurs, rubs or gallops, peripheral pulses normal and equal bilaterally. ABDOMEN: Soft, nontender, normoactive bowel sounds. No guarding, no rebound. No masses EXTREMITIES: +Babinski downgoing on Left side, unable to elicit response on R side. Sensation intact however patient unable to raise leg above bed. Some effort against gravity only. Some rectal tone appreciated however not strong. NEUROLOGICAL: Cranial nerves II through XII grossly intact. Speech at baseline, UE 5/5, LLE 5-/5, RLE 1-2+/5. Sensory intact, gait deferred SKIN: Warm, Dry, normal turgor, no rashes or lesions noted. CBCD WBC 10.1 K/mm3 (4.0-10.0) H 11/19/17 06:15 RBC 3.74 M/mm3 (4.00-5.60) L 11/19/17 06:15 Hgb 11.6 GM/dL (11.7-16.9) L 11/19/17 06:15 Hct 34.2 % (35.4-49) L 11/19/17 06:15 MCV 91.7 fl (80-96) 11/19/17 06:15 MCHC 33.8 g/dl (32.0-35.9) 11/19/17 06:15 RDW 14.0 % (11.9-15.9) 11/19/17 06:15 Plt Count 260 K/MM3 (134-434) 11/19/17 06:15 MPV 7.3 fl (7.5-11.1) L 11/19/17 06:15 CMP Sodium 145 mmol/L (136-145) 11/19/17 06:15 Potassium 3.7 mmol/L (3.5-5.1) 11/19/17 06:15 Chloride 113 mmol/L (98-107) H 11/19/17 06:15 Carbon Dioxide 22 mmol/L (21-32) 11/19/17 06:15 Anion Gap 10 (8-16) 11/19/17 06:15 BUN 13 mg/dL (7-18) 11/19/17 06:15 Creatinine 1.1 mg/dL (0.7-1.3) 11/19/17 06:15 Creat Clearance w eGFR > 60 (>60) 11/19/17 06:15 Calcium 8.2 mg/dL (8.5-10.1) L 11/19/17 06:15 Total Bilirubin 0.3 mg/dL (0.2-1.0) 11/16/17 13:23 AST 28 U/L (15-37) D 11/16/17 13:23 ALT 33 U/L (12-78) D 11/16/17 13:23 Alkaline Phosphatase 137 U/L (45-117) H 11/16/17 13:23 Total Protein 7.2 g/dl (6.4-8.2) 11/16/17 13:23 Albumin 3.3 g/dl (3.4-5.0) L 11/16/17 13:23 Imaging MRI L spine reviewed MRI C and T spine reviewed Medical Decision Making 67 yo male w/ pmh of prostate cancer, rheumatoid arthritis, osteoarthritis, herniated discs, HLD, prostate cancer (in remission) who presented for evaluation of fall night prior to admission. He reported that he was walking at the [place] when he experienced sudden onset right leg weakness and fell, striking his head. He then went home and fell again while urinating as his leg again became weak. He reported he has had 2 weeks of intermittent loss of bowel control as well and is currently unable to raise his leg at all from the bed. However to me he endorsed over 1 year of gradual and progressive weakness of RLE. MRI L spine completed, reviewed, and discussed. Prominent L5/S1 central and b/l disc herniation R>L. Nsgy note reviewed, planned to revaluate after reviewing imaging. MRI T and L spine also reviewed. Awaiting NSGY follow up. Discussed with primary, unsure if role of steroids now as not in acute setting. Primary plans to connect with NSGY for further clarification and recommendations. Follow up NSGY recommendations. Started on gabapentin 300mg three times a day. Pt/Ot as tolerated. Fall precautions.
--- NOTE | 2017-11-19 10:31 | PN ---
Progress Note (short form) - Note Progress Note: Dr. Bhatti to document today. I am still concerned that he has no MRI of brain (CT Done) to eplain right sided weakness and slight speech slurring. Patient tells me there may be a plan for Cervical spine disc surgery but there are only 2 small disc bulges on MRI Cervical Spine. Awail F/U Neurosurgeon and his documentation. Allso right eye pain when blinking; On exam no obvious foreign body but erythema noted; Artificial tears and Eye Consult placed.
--- NOTE | 2017-11-19 12:14 | PN ---
Progress Note, Physician Chief Complaint: Mr Garber says his pain is improved today and is without complaint. No cp, sob, n/v. - Current Medication List Current Medications: Active Medications Acetaminophen (Tylenol -) 325 mg PO Q6H PRN PRN Reason: PAIN Alprazolam (Xanax -) 0.5 mg PO [facility] Last Admin: 11/18/17 21:01 Dose: 0.5 mg Artificial Tears (Artificial Tears) 1 drop OD QID PRN PRN Reason: DRY EYES Atorvastatin Calcium (Lipitor -) 10 mg PO [facility] Last Admin: 11/18/17 21:02 Dose: 10 mg Enoxaparin Sodium (Lovenox -) 40 mg SQ DAILY [facility] Last Admin: 11/19/17 09:34 Dose: 40 mg Escitalopram Oxalate (Lexapro -) 20 mg PO [facility] Last Admin: 11/18/17 21:02 Dose: 20 mg Gabapentin (Neurontin -) 300 mg PO TID [facility] Last Admin: 11/19/17 05:59 Dose: 300 mg Nicotine (Nicoderm Patch -) 14 mg TD DAILY [facility] Last Admin: 11/19/17 09:34 Dose: 14 mg Olanzapine (Zyprexa -) 10 mg PO DAILY [facility] Last Admin: 11/19/17 09:34 Dose: 10 mg Oxycodone HCl (Roxicodone -) 5 mg PO Q6H PRN PRN Reason: PAIN LEVEL 6-10 Quetiapine Fumarate (Seroquel -) 200 mg PO [facility] Last Admin: 11/18/17 21:02 Dose: 200 mg - Objective Vital Signs: Vital Signs Temperature 36.4 C 11/19/17 09:12 Pulse Rate 68 11/19/17 09:12 Respiratory Rate 20 11/19/17 09:12 Blood Pressure 135/79 11/19/17 09:12 O2 Sat by Pulse Oximetry (%) 97 11/18/17 21:00 Constitutional: Yes: Well Nourished, No Distress, Calm Cardiovascular: Yes: Regular Rate and Rhythm. No: Gallop, Murmur, Rub Respiratory: Yes: Regular, CTA Bilaterally. No: Rales, Rhonchi, Wheezes Gastrointestinal: Yes: Normal Bowel Sounds, Soft. No: Distention, Tenderness Extremities: Yes: WNL Edema: No Labs: CBC, BMP 11/19/17 06:15 11/19/17 06:15 INR, PTT INR 1.03 (0.82-1.09) 11/16/17 13:23 Problem List - Problems (1) Weakness of right lower extremity Code(s): R29.898 - OTH SYMPTOMS AND SIGNS INVOLVING THE MUSCULOSKELETAL SYSTEM (2) Bowel incontinence Code(s): R15.9 - FULL INCONTINENCE OF FECES Qualifiers: Fecal incontinence type: unspecified Qualified Code(s): R15.9 - Full incontinence of feces (3) Carcinoma of prostate Code(s): C61 - MALIGNANT NEOPLASM OF PROSTATE (4) Falls frequently Code(s): R29.6 - REPEATED FALLS (5) HLD (hyperlipidemia) Code(s): E78.5 - HYPERLIPIDEMIA, UNSPECIFIED (6) Depression Code(s): F32.9 - MAJOR DEPRESSIVE DISORDER, SINGLE EPISODE, UNSPECIFIED Assessment/Plan (1) Weakness of right lower extremity Assessment/Plan: -case d/w ID and neurology -neurosurgery involved -patient states neurosurgery is discussing surgery -will contact neurosurgery for complete plan -case d/w Dr Emery (PCP) who raises concerns of weakness and possible slurred speech -will order MRI head w/o contrast as well Code(s): R29.898 - OTH SYMPTOMS AND SIGNS INVOLVING THE MUSCULOSKELETAL SYSTEM (2) Bowel incontinence Assessment/Plan: -sounds chronic -MRI not showing emergent signs -monitor Code(s): R15.9 - FULL INCONTINENCE OF FECES Qualifiers: Fecal incontinence type: unspecified Qualified Code(s): R15.9 - Full incontinence of feces (3) Carcinoma of prostate Assessment/Plan: -continue outpatient follow up Code(s): C61 - MALIGNANT NEOPLASM OF PROSTATE (4) Falls frequently Assessment/Plan: -neurosurgery and neurology following -PT consult Code(s): R29.6 - REPEATED FALLS (5) HLD (hyperlipidemia) Assessment/Plan: -continue statin Code(s): E78.5 - HYPERLIPIDEMIA, UNSPECIFIED (6) Depression Assessment/Plan: -continue home regimen Code(s): F32.9 - MAJOR DEPRESSIVE DISORDER, SINGLE EPISODE, UNSPECIFIED
[2017-11-19] MEDS: ACETAMINOPHEN 325 MG TABLET (FP) PO PRN (13:30)
[2017-11-19] MEDS: ARTIFICIAL TEARS (POLYVINYL ALCOHOL 1.4%) OPTH DROPS OD PRN (13:33)
[2017-11-19] MEDS: ESCITALOPRAM OXALATE 20 MG TABLET (FP) PO SCH (21:58)
[2017-11-19] MEDS: ATORVASTATIN CA 10 MG TABLET (FP) PO SCH (21:58)
[2017-11-19] MEDS: ALPRAZolam 0.25 MG TABLET PO SCH (21:59)
[2017-11-19] MEDS: QUEtiapine FUMARATE 200 MG TABLET PO SCH (21:59)
[2017-11-20] MEDS: GABAPENTIN 300 MG CAPSULE (FP) PO SCH ×3 (07:00→22:24)
[2017-11-20 07:55] LABS: CHLORIDE 110 mmol/L (98-107); POTASSIUM 3.7 mmol/L (3.5-5.1); SODIUM 142 mmol/L (136-145)
[2017-11-20 07:56] LABS: BASO % 0.7 % (0-2.0); EOS % 6.3 % (0-4.5); HEMATOCRIT 35.3 % (35.4-49); HEMOGLOBIN 11.9 GM/dL (11.7-16.9); LYMPH % 29.7 % (8-40); MCH 31.3 pg (25.7-33.7); MCHC 33.7 g/dl (32.0-35.9); MEAN CELL VOLUME 92.8 fl (80-96); MEAN PLT VOLUME 7.2 fl (7.5-11.1); MONO % 7.4 % (3.8-10.2); NEUT % 55.9 % (42.8-82.8); PLATELET COUNT 259 K/MM3 (134-434); RDW 13.9 % (11.9-15.9); WHITE BLOOD COUNT 10.3 K/mm3 (4.0-10.0)
[2017-11-20 08:03] LABS: ANION GAP 8 (8-16); BLOOD UREA NITROGEN 13 mg/dL (7-18); CALCIUM 8.8 mg/dL (8.5-10.1); CO2 24 mmol/L (21-32); CREATININE 1.1 mg/dL (0.7-1.3); GLUCOSE,RANDOM 138 mg/dL (74-106); MAGNESIUM 1.9 mg/dL (1.8-2.4); PHOSPHOROUS 2.9 mg/dL (2.5-4.9)
--- NOTE | 2017-11-20 09:04 | PN ---
Progress Note (short form) - Note Progress Note: Dr. Bhatti to document today. MRI Brain: several acute left sided infarcts. ? 1 small area of bleed. Await Neurology visit. Probably will need intensive PT if no objections from Neurosurgeon or Neurology.
[2017-11-20] MEDS ORDERED: PT OWN MED DRAWER 7, Y5N ONE (09:39)
--- NOTE | 2017-11-20 09:54 | PN ---
Progress Note (short form) - Note Progress Note: Neurology History of Present Illness 67 yo male w/ pmh of prostate cancer, rheumatoid arthritis, osteoarthritis, herniated discs, HLD, prostate cancer (in remission) who presented for evaluation of fall night prior to admission. [place] sudden onset right leg weakness and fell, striking his head. He then went home and fell again while urinating as his leg again became weak. He reported he has had 2 weeks of intermittent loss of bowel control as well and is currently unable to raise his leg at all from the bed. However to me he endorsed over 1 year of gradual and progressive weakness of RLE. MRI L spine completed, reviewed, and discussed. Prominent L5/S1 central and b/l disc herniation R>L. Nsgy note reviewed, planned to revaluate after reviewing imaging. MRI brain completed overnight, reviewed and demonstrated acute L cerebral infract consistent with deficit. Discussed with hospitalist, nurse, plan to move to tele monitoring, ASA 81mg initiated (confirmed with patient does not take at home). Will need further work up of Carotids and Echo. Not TPA candidate as outside window. PT recommended, likely for rehab placement. Active Medications Acetaminophen (Tylenol -) 325 mg PO Q6H PRN PRN Reason: PAIN Last Admin: 11/19/17 13:30 Dose: 325 mg Alprazolam (Xanax -) 0.5 mg PO HS [facility] Last Admin: 11/19/17 21:59 Dose: 0.5 mg Artificial Tears (Artificial Tears) 1 drop OD QID PRN PRN Reason: DRY EYES Last Admin: 11/19/17 13:33 Dose: 1 drop Aspirin (Ecotrin -) 81 mg PO DAILY [facility] Atorvastatin Calcium (Lipitor -) 10 mg PO HS [facility] Last Admin: 11/19/17 21:58 Dose: 10 mg Enoxaparin Sodium (Lovenox -) 40 mg SQ DAILY [facility] Last Admin: 11/19/17 09:34 Dose: 40 mg Escitalopram Oxalate (Lexapro -) 20 mg PO HS [facility] Last Admin: 11/19/17 21:58 Dose: 20 mg Gabapentin (Neurontin -) 300 mg PO TID [facility] Last Admin: 11/20/17 07:00 Dose: 300 mg Nicotine (Nicoderm Patch -) 14 mg TD DAILY [facility] Last Admin: 11/19/17 09:34 Dose: 14 mg Olanzapine (Zyprexa -) 10 mg PO DAILY [facility] Last Admin: 11/19/17 09:34 Dose: 10 mg Oxycodone HCl (Roxicodone -) 5 mg PO Q6H PRN PRN Reason: PAIN LEVEL 6-10 Last Admin: 11/19/17 13:31 Dose: 5 mg Quetiapine Fumarate (Seroquel -) 200 mg PO HS [facility] Last Admin: 11/19/17 21:59 Dose: 200 mg *Physical Exam Vital Signs Temperature 98.2 F 11/20/17 06:00 Pulse Rate 66 11/20/17 06:00 Respiratory Rate 20 11/20/17 06:00 Blood Pressure 121/67 11/20/17 06:00 O2 Sat by Pulse Oximetry (%) 97 11/18/17 21:00 GENERAL: Awake, alert, and fully oriented, in no acute distress HEAD: +Gary on R forehead where patient hit head last night. Normocephalic EYES: PERRLA, EOMI, sclera anicteric, conjunctiva clear ENT: Auricles normal inspection, hearing grossly normal, nares patent, oropharynx clear without exudates. Moist mucosa NECK: Normal ROM, supple, no lymphadenopathy, JVD, or masses LUNGS: No distress, speaks full sentences, clear to auscultation bilaterally HEART: Regular rate and rhythm, normal S1 and S2, no murmurs, rubs or gallops, peripheral pulses normal and equal bilaterally. ABDOMEN: Soft, nontender, normoactive bowel sounds. No guarding, no rebound. No masses EXTREMITIES: +Babinski downgoing on Left side, unable to elicit response on R side. Sensation intact however patient unable to raise leg above bed. Some effort against gravity only. Some rectal tone appreciated however not strong. NEUROLOGICAL: Cranial nerves II through XII grossly intact. Speech at baseline, UE 5/5, LLE 5-/5, RLE 1-2+/5. Sensory intact, gait deferred SKIN: Warm, Dry, normal turgor, no rashes or lesions noted. CBCD WBC 10.3 K/mm3 (4.0-10.0) H 11/20/17 06:30 RBC 3.80 M/mm3 (4.00-5.60) L 07/11/18 06:30 Hgb 11.9 GM/dL (11.7-16.9) 11/20/17 06:30 Hct 35.3 % (35.4-49) L 11/20/17 06:30 MCV 92.8 fl (80-96) 11/20/17 06:30 MCHC 33.7 g/dl (32.0-35.9) 11/20/17 06:30 RDW 13.9 % (11.9-15.9) 11/20/17 06:30 Plt Count 259 K/MM3 (134-434) 11/20/17 06:30 MPV 7.2 fl (7.5-11.1) L 11/20/17 06:30 CMP Sodium 142 mmol/L (136-145) 11/20/17 06:30 Potassium 3.7 mmol/L (3.5-5.1) 11/20/17 06:30 Chloride 110 mmol/L (98-107) H 11/20/17 06:30 Carbon Dioxide 24 mmol/L (21-32) 11/20/17 06:30 Anion Gap 8 (8-16) 11/20/17 06:30 BUN 13 mg/dL (7-18) 11/20/17 06:30 Creatinine 1.1 mg/dL (0.7-1.3) 11/20/17 06:30 Creat Clearance w eGFR > 60 (>60) 11/20/17 06:30 Calcium 8.8 mg/dL (8.5-10.1) 11/20/17 06:30 Total Bilirubin 0.3 mg/dL (0.2-1.0) 11/16/17 13:23 AST 28 U/L (15-37) D 11/16/17 13:23 ALT 33 U/L (12-78) D 11/16/17 13:23 Alkaline Phosphatase 137 U/L (45-117) H 11/16/17 13:23 Total Protein 7.2 g/dl (6.4-8.2) 11/16/17 13:23 Albumin 3.3 g/dl (3.4-5.0) L 11/16/17 13:23 Imaging MRI L spine reviewed MRI C and T spine reviewed MRI brain reviewed Medical Decision Making 67 yo male w/ pmh of prostate cancer, rheumatoid arthritis, osteoarthritis, herniated discs, HLD, prostate cancer (in remission) who presented for evaluation of fall night prior to admission. [place] experienced sudden onset right leg weakness and fell, striking his head. He then went home and fell again while urinating as his leg again became weak. He reported he has had 2 weeks of intermittent loss of bowel control as well and is currently unable to raise his leg at all from the bed. However to me he endorsed over 1 year of gradual and progressive weakness of RLE. MRI L spine completed, reviewed, and discussed. Prominent L5/S1 central and b/l disc herniation R>L. Nsgy note reviewed, planned to revaluate after reviewing imaging. MRI brain completed overnight, reviewed and demonstrated acute L cerebral infract consistent with deficit. Discussed with hospitalist, nurse, plan to move to tele monitoring, ASA 81mg initiated (confirmed with patient does not take at home). Will need further work up of Carotids and Echo. Not TPA candidate as outside window. Monitor blood pressure, goal <160/90 for now, <130/80 as outpatient. On statin, goal LDL < 70. Will need lipid profile checked. DVT ppx. PT recommended, likely for rehab placement.
[2017-11-20] MEDS: ENOXAPARIN NA (PORCINE) 40 MG/0.4 ML DISP.SYRIN SQ SCH (10:02)
[2017-11-20] MEDS: NICOTINE 14 MG/24 HOURS TOPICAL PATCH TD SCH (10:03)
[2017-11-20] MEDS: OLANZapine 10 MG TABLET PO SCH (10:03)
[2017-11-20] MEDS: ASPIRIN COATED 81 MG TABLET.EC PO SCH (10:18)
[2017-11-20] MEDS: ARTIFICIAL TEARS (POLYVINYL ALCOHOL 1.4%) OPTH DROPS OD PRN (10:29)
[2017-11-20 11:44] LABS: CHOLESTEROL 177 mg/dL (50-200); HDL CHOLESTEROL 33 mg/dL (40-60); TRIGLYCERIDES 290 mg/dL (35-160)
--- NOTE | 2017-11-20 11:46 | PN ---
Progress Note, Physician Chief Complaint: Mr Garber is without complaint. Denies cp, sob, n/v. - Current Medication List Current Medications: Active Medications Acetaminophen (Tylenol -) 325 mg PO Q6H PRN PRN Reason: PAIN Last Admin: 11/19/17 13:30 Dose: 325 mg Alprazolam (Xanax -) 0.5 mg PO HS [facility] Last Admin: 11/19/17 21:59 Dose: 0.5 mg Artificial Tears (Artificial Tears) 1 drop OD QID PRN PRN Reason: DRY EYES Last Admin: 11/20/17 10:29 Dose: 1 drop Aspirin (Ecotrin -) 81 mg PO DAILY [facility] Last Admin: 11/20/17 10:18 Dose: 81 mg Atorvastatin Calcium (Lipitor -) 10 mg PO HS [facility] Last Admin: 11/19/17 21:58 Dose: 10 mg Enoxaparin Sodium (Lovenox -) 40 mg SQ DAILY [facility] Last Admin: 11/20/17 10:02 Dose: 40 mg Escitalopram Oxalate (Lexapro -) 20 mg PO HS [facility] Last Admin: 11/19/17 21:58 Dose: 20 mg Gabapentin (Neurontin -) 300 mg PO TID [facility] Last Admin: 11/20/17 07:00 Dose: 300 mg Nicotine (Nicoderm Patch -) 14 mg TD DAILY [facility] Last Admin: 11/20/17 10:03 Dose: 14 mg Olanzapine (Zyprexa -) 10 mg PO DAILY [facility] Last Admin: 11/20/17 10:03 Dose: 10 mg Oxycodone HCl (Roxicodone -) 5 mg PO Q6H PRN PRN Reason: PAIN LEVEL 6-10 Last Admin: 11/19/17 13:31 Dose: 5 mg Quetiapine Fumarate (Seroquel -) 200 mg PO HS [facility] Last Admin: 11/19/17 21:59 Dose: 200 mg - Objective Vital Signs: Vital Signs Temperature 36.6 C 11/20/17 09:50 Pulse Rate 83 11/20/17 09:50 Respiratory Rate 24 11/20/17 09:50 Blood Pressure 135/74 11/20/17 09:50 O2 Sat by Pulse Oximetry (%) 92 L 11/20/17 10:30 Constitutional: Yes: Well Nourished, No Distress, Calm Cardiovascular: Yes: Regular Rate and Rhythm. No: Gallop, Murmur, Rub Respiratory: Yes: Regular, CTA Bilaterally. No: Rales, Rhonchi, Wheezes Gastrointestinal: Yes: Normal Bowel Sounds, Soft. No: Distention, Tenderness Extremities: Yes: WNL Edema: No Labs: CBC, BMP 11/20/17 06:30 11/20/17 06:30 INR, PTT INR 1.03 (0.82-1.09) 11/16/17 13:23 Problem List - Problems (1) Acute CVA (cerebrovascular accident) Code(s): I63.9 - CEREBRAL INFARCTION, UNSPECIFIED (2) Weakness of right lower extremity Code(s): R29.898 - OTH SYMPTOMS AND SIGNS INVOLVING THE MUSCULOSKELETAL SYSTEM (3) Bowel incontinence Code(s): R15.9 - FULL INCONTINENCE OF FECES Qualifiers: Fecal incontinence type: unspecified Qualified Code(s): R15.9 - Full incontinence of feces (4) Carcinoma of prostate Code(s): C61 - MALIGNANT NEOPLASM OF PROSTATE (5) Falls frequently Code(s): R29.6 - REPEATED FALLS (6) HLD (hyperlipidemia) Code(s): E78.5 - HYPERLIPIDEMIA, UNSPECIFIED (7) Depression Code(s): F32.9 - MAJOR DEPRESSIVE DISORDER, SINGLE EPISODE, UNSPECIFIED Assessment/Plan (1) Acute CVA Assessment/Plan: -MRI read reviewed -case d/w neurology and neurosurgery -check lipid profile -check carotid ultrasound and ECHO -neurology to start aspirin -PT and speech therapy ordered -transfer to telemetry -suspect will need rehab Code (2) Fecal incontinence -case d/w neurosurgery -chronic -outpatient follow up if needed Code(s): R15.9 - FULL INCONTINENCE OF FECES Qualifiers: Fecal incontinence type: unspecified Qualified Code(s): R15.9 - Full incontinence of feces (3) Carcinoma of prostate Assessment/Plan: -continue outpatient follow up Code(s): C61 - MALIGNANT NEOPLASM OF PROSTATE (4) Falls frequently Assessment/Plan: -neurosurgery and neurology following -PT consulted Code(s): R29.6 - REPEATED FALLS (5) HLD (hyperlipidemia) Assessment/Plan: -continue statin -check lipid panel Code(s): E78.5 - HYPERLIPIDEMIA, UNSPECIFIED (6) Depression Assessment/Plan: -continue home regimen Code(s): F32.9 - MAJOR DEPRESSIVE DISORDER, SINGLE EPISODE, UNSPECIFIED
--- NOTE | 2017-11-20 13:23 | CONSULT ---
Admitting History and Physical - Primary Care Physician PCP: Loyd Bhatti - Admission History of Present Illness: Per EMR: 67 yrs old man lives at home H/O Depression Bipolar disorders, Rheumatic arthritis not on any medication except pain meds, Ca Prostate in remission, poor historian, as per patient night before hospitalization midnight [place]ing area felt weak and fell down on the concrete pavement, no LOC, chest pain or palpitation denies any SOB Police came to help him getting up he walked till parking anfd came home, his friend drive him to home again while walking fell down and noticed he cant Lift Rt LE due to pain and weakness , came to Ed for evaluation on arrival to ED also c/o ongoing fecal incontinence for past few months considering possibility of Subacute cord compression admitted to R/O cord compression,, evaluated by Neurosurgery and MRI [place] [facility] shows chronic and Herniated disk no cord compression, CT haed shows no hematoma or hemorrhage, today at the time of examination patient c /o weakness and pain RT HIp area, no c/o fever, chills, nausea or vomiting. MRI-multiple L cerebral infracts Selected Entries 11/20/17 11/20/17 11/20/17 06:00 09:50 10:53 Breakfast 100% Temperature 98.2 F 97.8 F 11/20/17 11:50 Breakfast Temperature 97.6 F Laboratory Tests 11/18/17 11/19/17 11/20/17 05:55 06:15 06:30 WBC 9.4 10.1 H 10.3 H Pt reported falling 3 times, before admission. For me he was a fairly good historian, with mild word finding difficulty. He feels he has difficulty organizing his thoughts. History Source: Patient, Medical Record Limitations to Obtaining History: Clinical Condition - Past Medical History DISASSEMBLER: Yes: Peripheral Neuropathy Cardiovascular: Yes: HTN Renal/: Yes: Cancer (prostate (s/p RT)) Heme/Onc: Yes: Other (Ca Prostate) Psych: Yes: Anxiety, Bipolar, Depression Musculoskeletal: Yes: Chronic low back pain (/ spinal stenosis) Rheumatology: Yes: Rheumatoid Arthritis Dermatology: Yes: Basal Cell (-s/p multiple removals) - Past Surgical History Past Surgical History: Yes: Cataract Removal, Hernia Repair (umbilical, inguinal hernia repair) - Advance Directives Advance Directives: Yes: Health Care Proxy - Smoking History Smoking history: Current every day smoker Have you smoked in the past 12 months: Yes Aproximately how many cigarettes per day: 10 - Alcohol/Substance Use Hx Alcohol Use: No - Social History 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 History - Admission Reason For Visit: INCONTINENCE OF FECES WEAKNESS OF LOWER EXTREMITY - Diagnostics CT Scan: Report Reviewed MRI: Report Reviewed ( MRI-multiple L cerebral infracts) - General Mental Status: Alert and Oriented, Awake and Alert, Able to Follow Commands, Forgetful (Suspect higher intellectual functioning deficits.) Attention: Intact Ability to Follow Directions: Good Head/Neck Control: WFL - Hearing Hearing: Normal Hearing Aide: No With Patient: No Speech Evaluation - Communication Primary Language: HUNGARIAN Oral Expression Ability: Yes: Mild Impairment - Speech Production Able to Make Needs Known: Yes: Mildly Impaired Intelligibility: Yes: WNL - Speech Characteristics Voice Loudness: Normal Voice Pitch: Yes: Pitch Breaks Voice Phonatory-based Quality: Yes: Normal Speech Clarity: < 100% Nasal Resonance: Normal Articulation: Yes: Precise Dysfluency: Yes: Clonic (at times) - Language/Auditory Comprehension Follows: Yes: 2 Stage Simple Commands - Language/Verbal Expression Aphasia: Yes: Anomia Able to Respond to Simple Queries: Yes: WNL Able to Communicate Wants and Needs: Yes: WNL Functional Communication Status: Yes: WNL - Swallow Evaluation/Bedside Assessment Current Nutritional Intake: Regular, Thin Liquids Oral Secretions: Yes: WFL Dentition: Yes: Adequate Facial Symmetry at Rest: Symmetrical Facial Symmetry on Retraction: Symmetrical Facial Movement: Controlled Against Resistance Opening: Weak Against Resistance Closing: Weak Pucker Lips: Normal Smile: Normal Lingual Movement: Symmetric (tremor?) Lingual Speed of Movement: Normal Lingual Movement Strgth Against Opposition: Normal Lingual Movement Characteristics: Normal (tremor?) Velopharyngeal Movement: Normal Laryngeal Elevation: WFL Laryngeal Movement: Able to Palpate Rate of Intake: WFL Bolus Size: WFL Labial Seal: WFL Chewing: WFL A-P Transit: WFL Pocketing: None Timing of Swallow: WFL Coughing/Throat Clear: No Change in Voice: No Recommendations - Speech Evaluation, Impression/Plan Impression: Anomia. Occasionally dysfluent. Suspect higher intellectual functioning deficits. - Disposition Discharge to: [facility] (Excellent [facility]) - Dysphagia Impressions/Plan Swallowing Skills: WFL Dysphagia Impressions: No Impairment *Silent aspiration: cannot be R/O at bedside - Recommendations Diet Consistency: Regular Medication Administration: Whole with water Liquids: Thin Liquids
--- NOTE | 2017-11-20 14:03 | ECHO ---
Name: MICHAEL CHRISTENSEN Exam:Adult Echocardiogram Study Date: 11/20/2017 10:42 AM Reason For Study: ACUTE CVA Height: 73 in Weight: 196 lb BSA: 2.1 m2 MMode/2D Measurements & Calculations IVSd: 1.0 cm Ao root diam: 3.7 cm EDV(Teich): 103.1 ml LVIDd: 4.7 cm LA dimension: 3.6 cm LVPWd: 0.95 cm Doppler Measurements & Calculations MV E max cuco: 40.0 cm/sec Ao V2 max: 138.7 cm/sec LV V1 max P.5 mmHg MV A max cuco: 54.8 cm/sec Ao max P.7 mmHg LV V1 mean P.1 mmHg MV E/A: 0.73 Ao V2 mean: 110.5 cm/sec LV V1 max: 78.3 cm/sec Ao mean P.3 mmHg LV V1 mean: 48.9 cm/sec Ao V2 VTI: 28.8 cm LV V1 VTI: 12.6 cm Med Peak E' Cuco: 3.0 cm/sec Med E/e': 13.2 Lat Peak E' Cuco: 6.4 cm/sec Lat E/e': 6.2 Procedure A two-dimensional transthoracic echocardiogram with color flow and Doppler was performed. The study w as technically difficult with many images being suboptimal in quality. The patient was in normal sinus r hythm during the exam. Left Ventricle The left ventricular size, thickness and function are normal. The left ventricular ejection fraction is normal. E/A reversal consistent with but not diagnostic of poor LV compliance. The left ventricular w all motion is normal. Right Ventricle The right ventricle is normal in size and function. Atria Normal left and right atrial size and function. Mitral Valve There is mild mitral valve thickening. There is no mitral valve stenosis. There is trace to mild mitr al regurgitation. Tricuspid Valve There is mild tricuspid valve thickening. There is no tricuspid stenosis. There is trace tricuspid regurgitation. Aortic Valve The aortic valve is trileaflet. There is mild to moderate aortic valve thickening. There is mild to m oderate aortic sclerosis.;. No hemodynamically significant valvular aortic stenosis. No aortic regurgitation is present. Pulmonic Valve The pulmonic valve is not well visualized. There is no pulmonic valvular stenosis. There is no pulmon ic valvular regurgitation. Great Vessels The aortic root is not well visualized. Pericardium/Pleura There is no pericardial effusion. Interpretation Summary The left ventricular size, thickness and function are normal The left ventricular ejection fraction is normal. There is mild to moderate aortic valve thickening. There is mild to moderate aortic sclerosis.; E/A reversal consistent with but not diagnostic of poor LV compliance The left ventricular wall motion is normal. The study was technically difficult with many images being suboptimal in quality. There is trace to mild mitral regurgitation. MD Joe Barnett 11/20/2017 02:02 PM
--- NOTE | 2017-11-20 14:07 | PN ---
Progress Note (short form) - Note Progress Note: Patient stable with MRI demonstrating multiple small Left Hemisphere infarcts. Although the patient has mild spinal spondylosis, these lesions are most consistent with his current symptoms. I agree with current management plan and reviewed the importance of stroke management with patient. I explained that once he is stabilized from his acute difficulties, if he has persisting symptoms suggesting that his spinal pathologies may be the cause, I would be happy to see him as an outpatient. All are in agreement. No acute Neurosurgical intervention planned.
[2017-11-20] MEDS: oxyCODONE HCL 5 MG TABLET PO PRN ×2 (16:21→22:23)
[2017-11-20] MEDS: ACETAMINOPHEN 325 MG TABLET (FP) PO PRN ×2 (16:22→22:26)
[2017-11-20] MEDS: QUEtiapine FUMARATE 200 MG TABLET PO SCH (22:23)
[2017-11-20] MEDS: ATORVASTATIN CA 40 MG TABLET (FP) PO SCH (22:24)
[2017-11-20] MEDS: ALPRAZolam 0.25 MG TABLET PO SCH (22:24)
[2017-11-20] MEDS: ESCITALOPRAM OXALATE 20 MG TABLET (FP) PO SCH (22:24)
[2017-11-21] MEDS: GABAPENTIN 300 MG CAPSULE (FP) PO SCH ×3 (06:00→22:27)
[2017-11-21] MEDS: ACETAMINOPHEN 325 MG TABLET (FP) PO PRN (06:04)
[2017-11-21] MEDS: oxyCODONE HCL 5 MG TABLET PO PRN (06:05)
[2017-11-21 06:39] LABS: BASO % 0.7 % (0-2.0); EOS % 4.9 % (0-4.5); HEMATOCRIT 33.9 % (35.4-49); HEMOGLOBIN 11.4 GM/dL (11.7-16.9); LYMPH % 28.8 % (8-40); MCH 31.2 pg (25.7-33.7); MCHC 33.7 g/dl (32.0-35.9); MEAN CELL VOLUME 92.5 fl (80-96); MEAN PLT VOLUME 7.2 fl (7.5-11.1); MONO % 7.2 % (3.8-10.2); NEUT % 58.4 % (42.8-82.8); PLATELET COUNT 271 K/MM3 (134-434); RBC 3.67 M/mm3 (4.00-5.60); RDW 13.9 % (11.9-15.9); WHITE BLOOD COUNT 10.6 K/mm3 (4.0-10.0)
[2017-11-21 06:59] LABS: CHLORIDE 109 mmol/L (98-107); SODIUM 141 mmol/L (136-145)
[2017-11-21 07:06] LABS: ANION GAP 7 (8-16); BLOOD UREA NITROGEN 16 mg/dL (7-18); CO2 25 mmol/L (21-32); CREATININE 1.1 mg/dL (0.7-1.3); GLUCOSE,RANDOM 113 mg/dL (74-106); MAGNESIUM 1.9 mg/dL (1.8-2.4); PHOSPHOROUS 2.6 mg/dL (2.5-4.9)
--- NOTE | 2017-11-21 08:16 | PN ---
Progress Note (short form) - Note Progress Note: Dr. Bhatti to document today. Patient and would like referral to [facility] and I do believe he is a good candidate for rehab.
--- NOTE | 2017-11-21 08:57 | PN ---
Progress Note (short form) - Note Progress Note: Neurology History of Present Illness 67 yo male w/ pmh of prostate cancer, rheumatoid arthritis, osteoarthritis, herniated discs, HLD, prostate cancer (in remission) who presented for evaluation of fall night prior to admission. [place] sudden onset right leg weakness and fell, striking his head. He then went home and fell again while urinating as his leg again became weak. He reported he has had 2 weeks of intermittent loss of bowel control as well and is currently unable to raise his leg at all from the bed. However to me he endorsed over 1 year of gradual and progressive weakness of RLE. MRI L spine completed, reviewed, and discussed. Prominent L5/S1 central and b/l disc herniation R>L. Nsgy note reviewed, consistent with MRI brain, reviewed and demonstrated acute L cerebral infract consistent with deficit. Discussed with hospitalist, nurse, plan to move to tele monitoring, ASA 81mg initiated (confirmed with patient does not take at home). Completed Carotid doppler, reviewed and discussed, no HD significant stenosis. Also reviewed echo , normal EF, normal LV function. Active Medications Acetaminophen (Tylenol -) 325 mg PO Q6H PRN PRN Reason: PAIN Last Admin: 11/21/17 06:04 Dose: 325 mg Alprazolam (Xanax -) 0.5 mg PO [facility] Last Admin: 11/20/17 22:24 Dose: 0.5 mg Artificial Tears (Artificial Tears) 1 drop OD QID PRN PRN Reason: DRY EYES Last Admin: 11/20/17 10:29 Dose: 1 drop Aspirin (Ecotrin -) 81 mg PO DAILY [facility] Last Admin: 11/20/17 10:18 Dose: 81 mg Atorvastatin Calcium (Lipitor -) 40 mg PO [facility] Last Admin: 11/20/17 22:24 Dose: 40 mg Enoxaparin Sodium (Lovenox -) 40 mg SQ DAILY [facility] Last Admin: 11/20/17 10:02 Dose: 40 mg Escitalopram Oxalate (Lexapro -) 20 mg PO [facility] Last Admin: 11/20/17 22:24 Dose: 20 mg Gabapentin (Neurontin -) 300 mg PO TID [facility] Last Admin: 11/21/17 06:00 Dose: 300 mg Nicotine (Nicoderm Patch -) 14 mg TD DAILY [facility] Last Admin: 11/20/17 10:03 Dose: 14 mg Olanzapine (Zyprexa -) 10 mg PO DAILY [facility] Last Admin: 11/20/17 10:03 Dose: 10 mg Oxycodone HCl (Roxicodone -) 5 mg PO Q6H PRN PRN Reason: PAIN LEVEL 6-10 Last Admin: 11/21/17 06:05 Dose: 5 mg Quetiapine Fumarate (Seroquel -) 200 mg PO HS [facility] Last Admin: 11/20/17 22:23 Dose: 200 mg *Physical Exam Vital Signs Period Temp Pulse Resp BP Sys/Bhandari Pulse Ox Last 24 Hr 97.6 F-99.1 F 62-84 18-24 107-149/57-82 92-95 GENERAL: Awake, alert, and fully oriented, in no acute distress HEAD: +Gary on R forehead where patient hit head last night. Normocephalic EYES: PERRLA, EOMI, sclera anicteric, conjunctiva clear ENT: Auricles normal inspection, hearing grossly normal, nares patent, oropharynx clear without exudates. Moist mucosa NECK: Normal ROM, supple, no lymphadenopathy, JVD, or masses LUNGS: No distress, speaks full sentences, clear to auscultation bilaterally HEART: Regular rate and rhythm, normal S1 and S2, no murmurs, rubs or gallops, peripheral pulses normal and equal bilaterally. ABDOMEN: Soft, nontender, normoactive bowel sounds. No guarding, no rebound. No masses EXTREMITIES: +Babinski downgoing on Left side, unable to elicit response on R side. Sensation intact however patient unable to raise leg above bed. Some effort against gravity only. Some rectal tone appreciated however not strong. NEUROLOGICAL: Cranial nerves II through XII grossly intact. Speech at baseline, UE 5/5, LLE 5-/5, RLE 1-2+/5. Sensory intact, gait deferred SKIN: Warm, Dry, normal turgor, no rashes or lesions noted. CBCD WBC 10.6 K/mm3 (4.0-10.0) H 11/21/17 06:00 RBC 3.67 M/mm3 (4.00-5.60) L 11/21/17 06:00 Hgb 11.4 GM/dL (11.7-16.9) L 11/21/17 06:00 Hct 33.9 % (35.4-49) L 11/21/17 06:00 MCV 92.5 fl (80-96) 11/21/17 06:00 MCHC 33.7 g/dl (32.0-35.9) 11/21/17 06:00 RDW 13.9 % (11.9-15.9) 11/21/17 06:00 Plt Count 271 K/MM3 (134-434) 11/21/17 06:00 MPV 7.2 fl (7.5-11.1) L 11/21/17 06:00 CMP Sodium 141 mmol/L (136-145) 11/21/17 06:00 Potassium 4.0 mmol/L (3.5-5.1) 11/21/17 06:00 Chloride 109 mmol/L (98-107) H 11/21/17 06:00 Carbon Dioxide 25 mmol/L (21-32) 11/21/17 06:00 Anion Gap 7 (8-16) L 11/21/17 06:00 BUN 16 mg/dL (7-18) 11/21/17 06:00 Creatinine 1.1 mg/dL (0.7-1.3) 11/21/17 06:00 Creat Clearance w eGFR > 60 (>60) 11/21/17 06:00 Calcium 9.0 mg/dL (8.5-10.1) 11/21/17 06:00 Total Bilirubin 0.3 mg/dL (0.2-1.0) 11/16/17 13:23 AST 28 U/L (15-37) D 11/16/17 13:23 ALT 33 U/L (12-78) D 11/16/17 13:23 Alkaline Phosphatase 137 U/L (45-117) H 11/16/17 13:23 Total Protein 7.2 g/dl (6.4-8.2) 11/16/17 13:23 Albumin 3.3 g/dl (3.4-5.0) L 11/16/17 13:23 Imaging MRI L spine reviewed MRI C and T spine reviewed MRI brain reviewed Medical Decision Making 67 yo male w/ pmh of prostate cancer, rheumatoid arthritis, osteoarthritis, herniated discs, HLD, prostate cancer (in remission) who presented for evaluation of fall night prior to admission. [place] experienced sudden onset right leg weakness and fell, striking his head. He then went home and fell again while urinating as his leg again became weak. He reported he has had 2 weeks of intermittent loss of bowel control as well and is currently unable to raise his leg at all from the bed. However to me he endorsed over 1 year of gradual and progressive weakness of RLE. MRI L spine completed, reviewed, and discussed. Prominent L5/S1 central and b/l disc herniation R>L. Nsgy note reviewed, planned to revaluate after reviewing imaging. MRI brain completed overnight, reviewed and demonstrated acute L cerebral infract consistent with deficit. ASA 81mg initiated (confirmed with patient does not take at home). Carotids and Echo reviewed. Not TPA candidate as outside window. Monitor blood pressure, goal <140/90 for now, <130/ 80 as outpatient. On statin, LDL currenty 108, goal LDL < 70. If remains elevated, recommend increasing statin to full dose. DVT ppx. PT recommended, likely for rehab placement. [facility] present, discussed case, rep will evaluate for [facility] possible placement.
[2017-11-21] MEDS: NICOTINE 14 MG/24 HOURS TOPICAL PATCH TD SCH (09:46)
[2017-11-21] MEDS: ENOXAPARIN NA (PORCINE) 40 MG/0.4 ML DISP.SYRIN SQ SCH (09:46)
[2017-11-21] MEDS: ASPIRIN COATED 81 MG TABLET.EC PO SCH (09:46)
[2017-11-21] MEDS: OLANZapine 10 MG TABLET PO SCH (09:46)
--- NOTE | 2017-11-21 12:12 | PN ---
Progress Note, Physician Chief Complaint: Mr Garber is without complaint. Denies cp, sob, n/v. - Current Medication List Current Medications: Active Medications Acetaminophen (Tylenol -) 325 mg PO Q6H PRN PRN Reason: PAIN Last Admin: 11/21/17 06:04 Dose: 325 mg Alprazolam (Xanax -) 0.5 mg PO HS [facility] Last Admin: 11/20/17 22:24 Dose: 0.5 mg Artificial Tears (Artificial Tears) 1 drop OD QID PRN PRN Reason: DRY EYES Last Admin: 11/20/17 10:29 Dose: 1 drop Aspirin (Ecotrin -) 81 mg PO DAILY [facility] Last Admin: 11/21/17 09:46 Dose: 81 mg Atorvastatin Calcium (Lipitor -) 40 mg PO HS [facility] Last Admin: 11/20/17 22:24 Dose: 40 mg Enoxaparin Sodium (Lovenox -) 40 mg SQ DAILY [facility] Last Admin: 11/21/17 09:46 Dose: 40 mg Escitalopram Oxalate (Lexapro -) 20 mg PO [facility] Last Admin: 11/20/17 22:24 Dose: 20 mg Gabapentin (Neurontin -) 300 mg PO TID [facility] Last Admin: 11/21/17 06:00 Dose: 300 mg Nicotine (Nicoderm Patch -) 14 mg TD DAILY [facility] Last Admin: 11/21/17 09:46 Dose: 14 mg Olanzapine (Zyprexa -) 10 mg PO DAILY [facility] Last Admin: 11/21/17 09:46 Dose: 10 mg Oxycodone HCl (Roxicodone -) 5 mg PO Q6H PRN PRN Reason: PAIN LEVEL 6-10 Last Admin: 11/21/17 06:05 Dose: 5 mg Quetiapine Fumarate (Seroquel -) 200 mg PO [facility] Last Admin: 11/20/17 22:23 Dose: 200 mg - Objective Vital Signs: Vital Signs Temperature 36.9 C 11/21/17 09:46 Pulse Rate 74 11/21/17 09:46 Respiratory Rate 18 11/21/17 09:46 Blood Pressure 124/80 11/21/17 09:46 O2 Sat by Pulse Oximetry (%) 95 11/20/17 21:00 Constitutional: Yes: Well Nourished, No Distress, Calm Cardiovascular: Yes: Regular Rate and Rhythm. No: Gallop, Murmur, Rub Respiratory: Yes: Regular, CTA Bilaterally. No: Rales, Rhonchi, Wheezes Gastrointestinal: Yes: Normal Bowel Sounds, Soft. No: Distention, Tenderness Extremities: Yes: WNL Edema: No Labs: CBC, BMP 11/21/17 06:00 11/21/17 06:00 INR, PTT INR 1.03 (0.82-1.09) 11/16/17 13:23 Problem List - Problems (1) Acute CVA (cerebrovascular accident) Code(s): I63.9 - CEREBRAL INFARCTION, UNSPECIFIED (2) Weakness of right lower extremity Code(s): R29.898 - OTH SYMPTOMS AND SIGNS INVOLVING THE MUSCULOSKELETAL SYSTEM (3) Bowel incontinence Code(s): R15.9 - FULL INCONTINENCE OF FECES Qualifiers: Fecal incontinence type: unspecified Qualified Code(s): R15.9 - Full incontinence of feces (4) Carcinoma of prostate Code(s): C61 - MALIGNANT NEOPLASM OF PROSTATE (5) Falls frequently Code(s): R29.6 - REPEATED FALLS (6) HLD (hyperlipidemia) Code(s): E78.5 - HYPERLIPIDEMIA, UNSPECIFIED (7) Depression Code(s): F32.9 - MAJOR DEPRESSIVE DISORDER, SINGLE EPISODE, UNSPECIFIED Assessment/Plan (1) Acute CVA Assessment/Plan: -continue current management -continue PT -plan for discharge to rehab, possibly tomorrow Code (2) Fecal incontinence -case d/w neurosurgery -chronic -outpatient follow up if needed Code(s): R15.9 - FULL INCONTINENCE OF FECES Qualifiers: Fecal incontinence type: unspecified Qualified Code(s): R15.9 - Full incontinence of feces (3) Carcinoma of prostate Assessment/Plan: -continue outpatient follow up Code(s): C61 - MALIGNANT NEOPLASM OF PROSTATE (4) Falls frequently Assessment/Plan: -neurosurgery and neurology following -PT consulted and following Code(s): R29.6 - REPEATED FALLS (5) HLD (hyperlipidemia) Assessment/Plan: -lipitor increased to 40mg qhs -will need outpatient follow up -may need for it to be uptitrated to max dose if does not hit target of LDL<70 Code(s): E78.5 - HYPERLIPIDEMIA, UNSPECIFIED (6) Depression Assessment/Plan: -continue home regimen Code(s): F32.9 - MAJOR DEPRESSIVE DISORDER, SINGLE EPISODE, UNSPECIFIED Dispo -possible discharge tomorrow to rehab
--- NOTE | 2017-11-21 15:57 | PN ---
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 Speech production improved with less pitch breaks and much improved phonation and prosody. Tolerating diet well. Excellent candidacy for Acute Rehabilitation.
[2017-11-21] MEDS ORDERED: PT OWN MED DRAWER 7, Y5N ONE (22:05)
[2017-11-21] MEDS: QUEtiapine FUMARATE 200 MG TABLET PO SCH (22:27)
[2017-11-21] MEDS: ATORVASTATIN CA 40 MG TABLET (FP) PO SCH (22:27)
[2017-11-21] MEDS: ALPRAZolam 0.25 MG TABLET PO SCH (22:27)
[2017-11-21] MEDS: ESCITALOPRAM OXALATE 20 MG TABLET (FP) PO SCH (22:28)
[2017-11-22] MEDS: GABAPENTIN 300 MG CAPSULE (FP) PO SCH ×2 (05:53→13:17)
[2017-11-22 05:58] VITALS: BP 104/64; PULSE 90; TEMP 97.3
[2017-11-22] MEDS: oxyCODONE HCL 5 MG TABLET PO PRN (05:59)
--- NOTE | 2017-11-22 08:52 | PN ---
Progress Note (short form) - Note Progress Note: Neurology History of Present Illness 67 yo male w/ pmh of prostate cancer, rheumatoid arthritis, osteoarthritis, herniated discs, HLD, prostate cancer (in remission) who presented for evaluation of fall night prior to admission. [place] sudden onset right leg weakness and fell, striking his head. He then went home and fell again while urinating as his leg again became weak. He reported he has had 2 weeks of intermittent loss of bowel control as well and is currently unable to raise his leg at all from the bed. However to me he endorsed over 1 year of gradual and progressive weakness of RLE. MRI L spine completed, reviewed, and discussed. Prominent L5/S1 central and b/l disc herniation R>L. Nsgy note reviewed, consistent with MRI brain, reviewed and demonstrated acute L cerebral infract consistent with deficit. Discussed with hospitalist, nurse, plan to move to tele monitoring, ASA 81mg initiated (confirmed with patient does not take at home). Completed Carotid doppler, reviewed and discussed, no HD significant stenosis. Also reviewed echo , normal EF, normal LV function. Spoke to rep from [facility] yesterday and provided background history. Spoke to employment evaluator/case manager today, [facility] reviewing paperwork, possibly for transfer today if accepted. Discussed with via phone yesterday and gave details on clinical course as well as plan. She strongly prefers [facility] placement. Discussed with patient as well and he is in agreement. Active Medications Acetaminophen (Tylenol -) 325 mg PO Q6H PRN PRN Reason: PAIN Last Admin: 11/21/17 06:04 Dose: 325 mg Alprazolam (Xanax -) 0.5 mg PO [facility] Last Admin: 11/21/17 22:27 Dose: 0.5 mg Artificial Tears (Artificial Tears) 1 drop OD QID PRN PRN Reason: DRY EYES Last Admin: 11/20/17 10:29 Dose: 1 drop Aspirin (Ecotrin -) 81 mg PO DAILY [facility] Last Admin: 11/21/17 09:46 Dose: 81 mg Atorvastatin Calcium (Lipitor -) 40 mg PO HS [facility] Last Admin: 11/21/17 22:27 Dose: 40 mg Enoxaparin Sodium (Lovenox -) 40 mg SQ DAILY [facility] Last Admin: 11/21/17 09:46 Dose: 40 mg Escitalopram Oxalate (Lexapro -) 20 mg PO HS [facility] Last Admin: 11/21/17 22:28 Dose: 20 mg Gabapentin (Neurontin -) 300 mg PO TID [facility] Last Admin: 11/22/17 05:53 Dose: 300 mg Nicotine (Nicoderm Patch -) 14 mg TD DAILY [facility] Last Admin: 11/21/17 09:46 Dose: 14 mg Olanzapine (Zyprexa -) 10 mg PO DAILY [facility] Last Admin: 11/21/17 09:46 Dose: 10 mg Oxycodone HCl (Roxicodone -) 5 mg PO Q6H PRN PRN Reason: PAIN LEVEL 6-10 Last Admin: 11/22/17 05:59 Dose: 5 mg Quetiapine Fumarate (Seroquel -) 200 mg PO [facility] Last Admin: 11/21/17 22:27 Dose: 200 mg *Physical Exam Vital Signs Period Temp Pulse Resp BP Sys/Bhandari Pulse Ox Last 24 Hr 97.3 F-98.5 F 72-99 18-20 103-142/53-94 93-95 GENERAL: Awake, alert, and fully oriented, in no acute distress HEAD: +Gary on R forehead where patient hit head last night. Normocephalic EYES: PERRLA, EOMI, sclera anicteric, conjunctiva clear ENT: Auricles normal inspection, hearing grossly normal, nares patent, oropharynx clear without exudates. Moist mucosa NECK: Normal ROM, supple, no lymphadenopathy, JVD, or masses LUNGS: No distress, speaks full sentences, clear to auscultation bilaterally HEART: Regular rate and rhythm, normal S1 and S2, no murmurs, rubs or gallops, peripheral pulses normal and equal bilaterally. ABDOMEN: Soft, nontender, normoactive bowel sounds. No guarding, no rebound. No masses EXTREMITIES: +Babinski downgoing on Left side, unable to elicit response on R side. Sensation intact however patient unable to raise leg above bed. Some effort against gravity only. Some rectal tone appreciated however not strong. NEUROLOGICAL: Cranial nerves II through XII grossly intact. Speech at baseline, UE 5/5, LLE 5-/5, RLE 1-2+/5. Sensory intact, gait deferred SKIN: Warm, Dry, normal turgor, no rashes or lesions noted. CBCD WBC 10.6 K/mm3 (4.0-10.0) H 11/21/17 06:00 RBC 3.67 M/mm3 (4.00-5.60) L 11/21/17 06:00 Hgb 11.4 GM/dL (11.7-16.9) L 11/21/17 06:00 Hct 33.9 % (35.4-49) L 11/21/17 06:00 MCV 92.5 fl (80-96) 11/21/17 06:00 MCHC 33.7 g/dl (32.0-35.9) 11/21/17 06:00 RDW 13.9 % (11.9-15.9) 11/21/17 06:00 Plt Count 271 K/MM3 (134-434) 11/21/17 06:00 MPV 7.2 fl (7.5-11.1) L 11/21/17 06:00 CMP Sodium 141 mmol/L (136-145) 11/21/17 06:00 Potassium 4.0 mmol/L (3.5-5.1) 11/21/17 06:00 Chloride 109 mmol/L (98-107) H 11/21/17 06:00 Carbon Dioxide 25 mmol/L (21-32) 11/21/17 06:00 Anion Gap 7 (8-16) L 11/21/17 06:00 BUN 16 mg/dL (7-18) 11/21/17 06:00 Creatinine 1.1 mg/dL (0.7-1.3) 11/21/17 06:00 Creat Clearance w eGFR > 60 (>60) 11/21/17 06:00 Random Glucose 113 mg/dL (74-106) H 11/21/17 06:00 Calcium 9.0 mg/dL (8.5-10.1) 11/21/17 06:00 Total Bilirubin 0.3 mg/dL (0.2-1.0) 11/16/17 13:23 AST 28 U/L (15-37) D 11/16/17 13:23 ALT 33 U/L (12-78) D 11/16/17 13:23 Alkaline Phosphatase 137 U/L (45-117) H 11/16/17 13:23 Total Protein 7.2 g/dl (6.4-8.2) 11/16/17 13:23 Albumin 3.3 g/dl (3.4-5.0) L 11/16/17 13:23 CARDIAC ENZYMES Creatine Kinase 141 IU/L (39-308) 11/16/17 13:23 Troponin I < 0.02 ng/ml (0.00-0.05) 11/16/17 13:23 Imaging MRI L spine reviewed MRI C and T spine reviewed MRI brain reviewed Medical Decision Making 67 yo male w/ pmh of prostate cancer, rheumatoid arthritis, osteoarthritis, herniated discs, HLD, prostate cancer (in remission) who presented for evaluation of fall night prior to admission. [place] sudden onset right leg weakness and fell, striking his head. He then went home and fell again while urinating as his leg again became weak. He reported he has had 2 weeks of intermittent loss of bowel control as well and is currently unable to raise his leg at all from the bed. However to me he endorsed over 1 year of gradual and progressive weakness of RLE. MRI L spine completed, reviewed, and discussed. Prominent L5/S1 central and b/l disc herniation R>L. Nsgy note reviewed, planned to revaluate after reviewing imaging. MRI brain completed overnight, reviewed and demonstrated acute L cerebral infract consistent with deficit. ASA 81mg initiated (confirmed with patient does not take at home). Carotids and Echo as above. Monitor blood pressure, goal <140/90 for now, <130/80 as outpatient. On statin, LDL currenty 108, goal LDL < 70. If remains elevated, recommend increasing statin to full dose, check in 3 mons. DVT ppx. Spoke to rep from [facility] yesterday and provided background history. Spoke to employment evaluator/case manager today, [facility] reviewing paperwork, possibly for transfer today if accepted. Discussed with via phone yesterday and gave details on clinical course as well as plan. She strongly prefers [facility] placement. Discussed with patient as well and he is in agreement.
--- NOTE | 2017-11-22 09:42 | PN ---
Progress Note (short form) - Note Progress Note: Dr. Bhatti to document today. Hopefully [facility] re[facility] transfer today. He is very motivated.
[2017-11-22] MEDS ORDERED: PT OWN MED DRAWER 7, Y5N ONE (10:07)
[2017-11-22] MEDS: ENOXAPARIN NA (PORCINE) 40 MG/0.4 ML DISP.SYRIN SQ SCH (10:09)
[2017-11-22] MEDS: ASPIRIN COATED 81 MG TABLET.EC PO SCH (10:09)
[2017-11-22] MEDS: OLANZapine 10 MG TABLET PO SCH (10:10)
[2017-11-22] MEDS: NICOTINE 14 MG/24 HOURS TOPICAL PATCH TD SCH (10:10)
--- NOTE | 2017-11-22 12:37 | DS ---
Physical Examination Vital Signs: Vital Signs Temperature 36.3 C L 11/22/17 05:56 Pulse Rate 90 11/22/17 05:56 Respiratory Rate 18 11/22/17 05:56 Blood Pressure 104/64 11/22/17 05:56 O2 Sat by Pulse Oximetry (%) 93 L 11/21/17 21:00 Constitutional: Yes: Well Nourished, No Distress, Calm Cardiovascular: Yes: Regular Rate and Rhythm. No: Gallop, Murmur, Rub Respiratory: Yes: Regular, CTA Bilaterally. No: Rales, Rhonchi, Wheezes Gastrointestinal: Yes: Normal Bowel Sounds, Soft. No: Distention, Tenderness Extremities: Yes: WNL Edema: No Labs: CBC, BMP 11/21/17 06:00 11/21/17 06:00 Discharge Summary Reason For Visit: INCONTINENCE OF FECES WEAKNESS OF LOWER EXTREMITY Current Active Problems Abnormal MRI, thoracic spine (Acute) Acute CVA (cerebrovascular accident) (Acute) Arthritis (Acute) Bowel incontinence (Acute) Carcinoma of prostate (Acute) Depression (Acute) HLD (hyperlipidemia) (Acute) Leg weakness (Acute) Weakness of right lower extremity (Acute) Hospital Course: (1) Acute CVA (cerebrovascular accident) Code(s): I63.9 - CEREBRAL INFARCTION, UNSPECIFIED (2) Weakness of right lower extremity Code(s): R29.898 - OTH SYMPTOMS AND SIGNS INVOLVING THE MUSCULOSKELETAL SYSTEM (3) Bowel incontinence Code(s): R15.9 - FULL INCONTINENCE OF FECES Qualifiers: Fecal incontinence type: unspecified Qualified Code(s): R15.9 - Full incontinence of feces (4) Carcinoma of prostate Code(s): C61 - MALIGNANT NEOPLASM OF PROSTATE (5) Falls frequently Code(s): R29.6 - REPEATED FALLS (6) HLD (hyperlipidemia) Code(s): E78.5 - HYPERLIPIDEMIA, UNSPECIFIED (7) Depression Code(s): F32.9 - MAJOR DEPRESSIVE DISORDER, SINGLE EPISODE, UNSPECIFIED Mr Garber is a very pleasant 67 year old male who comes in with sudden onset RLE weakness and falls and was found to have an acute L CVA. he was admitted and seen by neurology and neurosurgery because of the weakness and chronic bowel incontinence. His head CT was normal and MRI of the spine showed minimal stenosis. However an MRI was performed and he was found to have an acute CVA. ECHO and carotid ultrasound performed. He was seen by PT and ST. Lipid profile was checked and LDL was above 100. Lipitor was increased to 40mg and will need follow up as may need to increased to full strength. He was started on an aspirin. Currently he is safe for discharge to SNF. 37 minutes spent in preparation of this discharge Condition: Good - Instructions Diet, Activity, Other Instructions: low fat diet. Up with assistance, further activity per PT at SNF Referrals: Star Emery MD [Staff Physician] - Michel Li MD [Staff Physician] - Disposition: [facility] - Home Medications Comprehensive Discharge Medication List: Ambulatory Orders Alprazolam [Xanax] 8 mg PO HS 07/15/15 Escitalopram Oxalate [Lexapro -] 20 mg PO HS 11/16/17 Quetiapine Fumarate [Seroquel] 200 mg PO HS 11/16/17 Acetaminophen [Tylenol .Regular Strength -] 325 mg PO Q6H PRN tablet 11/22/17 Aspirin Coated [Ecotrin -] 81 mg PO DAILY tablet.ec 11/22/17 Atorvastatin Ca [Lipitor] 40 mg PO HS tablet 11/22/17 Gabapentin [Neurontin -] 300 mg PO TID capsule 11/22/17 Olanzapine [ZyPREXA -] 10 mg PO DAILY tablet 11/22/17 oxyCODONE HCL [Roxicodone -] 5 mg PO Q6H PRN tablet MDD 30mg 11/22/17
== END 2017-11-22 14:03 | DRG 65 ==
LOC: JER 12:29 → JERBED 16:35 → J5S 20:01 → J4S 11-20 11:15
PROVIDERS: ADMIT Internal Medicine; ATTEND Internal Medicine
DX: I63.9 Cerebral infarction, unspecified (principal); G95.9 Disease of spinal cord, unspecified; M47.12 Other spondylosis with myelopathy, cervical region; I69.351 Hemiplegia and hemiparesis following cerebral infarction affecting right dominant side; M06.9 Rheumatoid arthritis, unspecified; F31.9 Bipolar disorder, unspecified; G62.9 Polyneuropathy, unspecified; I10 Essential (primary) hypertension; M46.44 Discitis, unspecified, thoracic region; M54.5 Low back pain; F41.8 Other specified anxiety disorders; F17.210 Nicotine dependence, cigarettes, uncomplicated; R29.898 Other symptoms and signs involving the musculoskeletal system; R29.6 Repeated falls; M19.90 Unspecified osteoarthritis, unspecified site; M47.896 Other spondylosis, lumbar region; R15.9 Full incontinence of feces; Z85.46 Personal history of malignant neoplasm of prostate
CPT/HCPCS: 36415; 70450-TC; 70551-TC; 71045-TC-FY; 72100-TC-FY; 72141-TC; 72146-TC; 72148-TC; 72170-TC-FY; 73502-TC-RT; 73523-TC-FY; 73721-RT-TC; 80048; 80053; 80061; 81003; 82272; 82550; 83036; 83721; 83735; 84100; 84443; 84484; 85025; 85610; 85651; 85730; 86140; 86850; 86900; 86901; 87040; 87086; 93005; 93010; 93306-TC; 93880-TC; 97116-GP; 97162-GP; 99284-25

== ENCOUNTER 2018-03-19 13:36 | Emergency (ER) | payer OTHER, BC ==
[2018-03-19 14:13] VITALS: BMI 26.5
--- NOTE | 2018-03-19 14:59 | PDOC ---
Attending Attestation - HPI HPI: 03/19/18 16:11 The patient is a 67-year-old male with past medical history significant for Prostate CA, HTN, HLD presents to the emergency department s/p a fall and weakness of the R. leg. The patient reports earlier today he was walking when his leg gave out leading to the fall. The patient reports he has thick carpets at home, denies head injury or LOC. The patient reports he has had multiple episodes of falls in the past secondary to legs giving out. The patient reports he ambulates at home holding onto furniture and reports using a cane for walking. Allergies: penicillins PCP: Dr. Star Emery <Celena Katz - Last Filed: 03/19/18 16:11> - Resident Resident Name: Sarah Naidu - ED Attending Attestation I have performed the following: I have examined & evaluated the patient, The case was reviewed & discussed with the resident, I agree w/resident's findings & plan, Exceptions are as noted - Physicial Exam PE: 03/19/18 16:06 GENERAL: The patient is in no acute distress. HEAD: Normal with no signs of trauma. EYES: PERRLA, EOMI ENT: Ears normal, nares patent, oropharynx clear without exudates. Dry mucous membranes. NECK: Normal range of motion, supple without midline tenderness to palpation LUNGS: Breath sounds equal, clear to auscultation bilaterally. HEART:Regular rate and rhythm, normal S1 and S2 without murmur, rub or gallop. ABDOMEN: Soft, nontender, normoactive bowel sounds. EXTREMITIES: Normal range of motion NEUROLOGICAL: Cranial nerves II through XII grossly intact. Normal speech. No focal neurological deficits. MUSCULOSKELETAL: no deformities SKIN: Warm, Dry, normal turgor, no rashes or lesions noted. - Medical Decision Making 03/19/18 16:04 Pt s/p frequent and repeated falls He denies weakness he denies chest pain Twelve-lead EKG was performed and reviewed by me. There is normal sinus rhythm with a normal rate of 63bpm. The axis is normal. The intervals are normal. There are no ST or T wave abnormalities. Impression: Normal twelve-lead EKG Call placed to Dr Emery He will assist with ordering physical therapy for this patient tomorrow when the PT office is open Pt refusing in no uncertain terms to stay in the hospital Pt would like him to stay in the hospital Pt has called his multiple times to come to the ER to pick him up At this time, the patient unwilling to stay for any further work up and is threatening to walk out of the ER <Stefanie Heath - Last Filed: 03/22/18 23:17>
--- NOTE | 2018-03-19 15:31 | PDOC ---
History of Present Illness - General Chief Complaint: Injury Stated Complaint: FALL Time Seen by Provider: 03/19/18 14:37 Exam Limitations: No Limitations - History of Present Illness Initial Comments: 03/19/18 15:28 Pt is a 67yo m with PMH of CVA 4 months ago with R sided deficits, HTN, RA, BCC , Prostate Ca s/p RT presenting to ED wwth complaints of "right hip giving out" . Pt states that since the CVA he has had R sided deficits including unsteady gait which causes frequent falls. He comse in today because he keeps falling. He fell 2 times today. He denies hitting his head or losing consciousness. He denies new weakness, numbness, tingling. He has not gone to physical therapy for his gait. He is not taking blood thinners. PMD: Yuly PMH: see hpi PSH: cataract removal Meds: ASA, see med rec Past History - Past Medical History Allergies/Adverse Reactions: Allergies Allergy/AdvReac Type Severity Reaction Status Date / Time Penicillins Allergy Verified 03/19/18 13:59 Home Medications: Ambulatory Orders Escitalopram Oxalate [Lexapro -] 20 mg PO HS 11/16/17 Quetiapine Fumarate [Seroquel] 200 mg PO HS 11/16/17 Acetaminophen [Tylenol .Regular Strength -] 325 mg PO Q6H PRN tablet 11/22/17 Aspirin Coated [Ecotrin -] 81 mg PO DAILY tablet.ec 11/22/17 Alprazolam [Xanax] 4 mg PO HS MDD 1 03/19/18 Atorvastatin Ca [Lipitor] 40 mg PO HS 03/19/18 Celecoxib [Celebrex -] 200 mg PO ASDIR 03/19/18 Docusate Sodium [Stool Softener] 100 mg PO BID 03/19/18 Gabapentin 400 mg PO HS 03/19/18 Gabapentin [Neurontin -] 300 mg PO BID 03/19/18 Anemia: No Asthma: No Cancer: Yes (BASAL CELL, PROSTATE CA) Cardiac Disorders: No CVA: No COPD: No CHF: No Dementia: No Diabetes: No GI Disorders: Yes (RECTAL BLEEDING, COLON POLYP) Disorders: Yes (PROSTATE CA SEEDING AND RADIATION) HTN: Yes Hypercholesterolemia: Yes Liver Disease: No Psychiatric Problems: Yes Seizures: No Thyroid Disease: No - Surgical History Abdominal Surgery: Yes (HERNIA REPAIR 2007) Appendectomy: No Cardiac Surgery: No Cholecystectomy: No Lung Surgery: No Neurologic Surgery: No Orthopedic Surgery: No - Immunization History Immunization Up to Date: Yes - Suicide/Smoking/Psychosocial Hx Smoking History: Current every day smoker Have you smoked in the past 12 months: Yes Number of Cigarettes Smoked Daily: 10 Information on smoking cessation initiated: No 'Breaking Loose' booklet given: 12/27/17 Hx Alcohol Use: No Drug/Substance Use Hx: Yes Substance Use Type: Marijuana Hx Substance Use Treatment: No Review of Systems - Review of Systems Constitutional: No: Symptoms Reported HEENTM: No: Symptoms Reported Respiratory: No: Symptoms reported Cardiac (ROS): No: Symptoms Reported ABD/GI: No: Symptoms Reported : No: Symptoms Reported Musculoskeletal: Yes: See HPI, Other. No: Back Pain, Joint Pain, Joint Swelling (R hip "weakness"), Muscle Pain, Neck Pain, Joint Stiffness Integumentary: No: Symptoms Reported Neurological: Yes: Weakness (R hip/leg). No: Headache, Numbness, Tingling, Tremors *Physical Exam - Vital Signs Last Vital Signs Temp Pulse Resp BP Pulse Ox 98.4 F 84 18 119/79 100 03/19/18 13:36 03/19/18 13:36 03/19/18 13:36 03/19/18 13:36 03/19/18 13:36 - Physical Exam General Appearance: Yes: Nourished, Appropriately Dressed. No: Apparent Distress HEENT: positive: EOMI, JERICHO, Pharynx Normal Neck: positive: Trachea midline, Supple. negative: Carotid bruit, Lymphadenopathy (R), Lymphadenopathy (L) Respiratory/Chest: positive: Chest Tender, Lungs Clear, Normal Breath Sounds Cardiovascular: positive: Regular Rhythm, Regular Rate, S1, S2. negative: Edema , JVD, Murmur Vascular Pulses: Carotid (R): 2+, Carotid (L): 2+, Dorsalis-Pedis (R): 2+, Doralis-Pedis (L): 2+ Gastrointestinal/Abdominal: positive: Normal Bowel Sounds, Soft. negative: Distended, Guarding, Rebound, Tenderness Musculoskeletal: positive: Normal Inspection, Other (no hip tenderness, no swelling). negative: CVA Tenderness Extremity: positive: Normal Capillary Refill, Pelvis Stable. negative: Coldness , Swelling, Calf Tenderness Integumentary: positive: Normal Color, Dry, Warm. negative: Rash Neurologic: positive: materials scientist II-XII NML intact, Fully Oriented, Alert, Normal Mood/ Affect, Normal Response, Motor Strength 5/5. negative: Sensory Deficit, Confused, Disoriented ED Treatment Course - RADIOLOGY Radiology Studies Ordered: Category Date Time Status HIP & PELVIS-RIGHT [RAD] Stat Radiology 03/19/18 15:09 Ordered Medical Decision Making - Medical Decision Making Pt is a 67yo m with PMH of CVA 4 months ago with R sided deficits, HTN, RA, BCC , Prostate Ca s/p RT presenting to ED wwth complaints of "right hip giving out" Vitals: Selected Entries 03/19/18 13:36 Temperature 98.4 F Pulse Rate 84 Respiratory 18 Rate Blood Pressure 119/79 O2 Sat by Pulse 100 Oximetry (%) PE: benign. Ataxic gait. Cannot bear weight on R leg as well as L leg. DDx: residual weakness, CVA, fracture, displacement. Low suspicion for new CVA because deficits are not new. Pt has been having difficulty since first CVA. Will defer CT head and labs at this time. Will Xray hip. Pt most likely needs physical therapy to gain strength back. Xray: extensive arthritic changes in R hip. NO fracture. Dr. Emery called about scheduling outpt PT. Can get pt into PT. Called , requesting pt stay in hospital because not safe at home, no one is there to watch him, there are stairs. Will get pt admitted for weakness. 03/19/18 16:32 Pt does not want to stay in hospital. Is wanting to sign out AMA. Pt has the capacity to make own decisions. Cannot force pt to stay in hospital. Pt given information about risks of leaving. Understands and desires to have home PT. Pt signed out AMA. *DC/Admit/Observation/Transfer Diagnosis at time of Disposition: Falls frequently - Discharge Dispostion Disposition: AGAINST MEDICAL ADVICE Condition at time of disposition: Stable - Referrals Referrals: Star Emery MD [Primary Care Provider] - - Patient Instructions Printed Discharge Instructions: How to Prevent Falls Additional Instructions: Discuss the physical therapy options with Dr. Emery - Post Discharge Activity
[2018-03-19 17:34] VITALS: BP 125/64; PULSE 72; TEMP 97.8
--- NOTE | 2018-03-20 11:12 | EKG ---
Test Reason : Blood Pressure : / mmHG Vent. Rate : 063 BPM Atrial Rate : 063 BPM P-R Int : 152 ms QRS Dur : 158 ms QT Int : 476 ms P-R-T Axes : 008 -11 019 degrees QTc Int : 487 ms POOR DATA QUALITY, INTERPRETATION MAY BE ADVERSELY AFFECTED NORMAL SINUS RHYTHM RIGHT BUNDLE BRANCH BLOCK ABNORMAL ECG WHEN COMPARED WITH ECG OF 25-DEC-2017 13:38, NO SIGNIFICANT CHANGE WAS FOUND Confirmed by MAGNO GARCIA MD ([id number]) on 03/20/2018 11:12:03 AM Referred By: Confirmed By:MAGNO GARCIA MD
== END 2018-03-19 17:34 | disposition left against medical advice (07) ==
LOC: JER 13:36
DX: Z91.81 History of falling (principal); F17.210 Nicotine dependence, cigarettes, uncomplicated; E78.00 Pure hypercholesterolemia, unspecified; I10 Essential (primary) hypertension; F99 Mental disorder, not otherwise specified; Z85.828 Personal history of other malignant neoplasm of skin
CPT/HCPCS: 73523-TC-FY; 93005; 93010; 99283-25

== ENCOUNTER 2018-11-17 16:11 | Inpatient (IN) | payer OTHER, BC ==
--- NOTE | 2018-11-17 16:56 | PDOC ---
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 Patient's is at the bedside providing collateral history. He admits to falling twice today, three times yesterday, and three times the day before. He denies any prodromal symptoms: no dizziness, lightheadedness, chest pain, or shortness of breath. Patient states that his "leg gives out" despite the use of a walker. He states his hip will pop in and out, and currently it is in. Today he got up to get something to eat when he fell once again and was unable to pick himself up. His found him on the ground after several hours. Patient's primary care physician is aware of this pattern of falling and recommended evaluation when speaking with the patient and his last . The patient's has pictures of multiple bruises the patient has suffered over the past two and a half months. Per chart review, he left AMA in March 2018 despite being recommended for admission for falls. Since the problem has gotten much worse over the past two weeks, patient is now amenable to admission. Takes a baby aspirin daily. No fevers or chills. PCP: Dr. Emery Past History - Past Medical History Allergies/Adverse Reactions: Allergies Allergy/AdvReac Type Severity Reaction Status Date / Time Penicillins Allergy Verified 11/17/18 16:30 Home Medications: Ambulatory Orders Escitalopram Oxalate [Lexapro -] 10 mg PO HS 11/16/17 Acetaminophen [Tylenol .Regular Strength -] 325 mg PO Q6H PRN tablet 11/22/17 Aspirin Coated [Ecotrin -] 81 mg PO DAILY tablet.ec 11/22/17 Alprazolam [Xanax] 3 mg PO HS MDD 1 03/19/18 Gabapentin 600 mg PO HS 03/19/18 Gabapentin [Neurontin -] 300 mg PO BID 03/19/18 Clonazepam [Klonopin] 2 mg PO HS 11/17/18 Diphenhydramine [Benadryl -] 2 tab PO HS 11/17/18 Divalproex Sodium [Depakote ER] 3 tab PO HS 11/17/18 Multivitamin [Multiple Vitamins] 1 each PO 11/17/18 Nicotine [Nicotine Patch 14mg/24 hr] 1 each TD 11/17/18 Simvastatin [Zocor -] 40 mg PO HS 11/17/18 Anemia: No Asthma: No Cancer: Yes (BASAL CELL, PROSTATE CA) Cardiac Disorders: No CVA: No COPD: No CHF: No Dementia: No Diabetes: No GI Disorders: Yes (RECTAL BLEEDING, COLON POLYP) Disorders: Yes (PROSTATE CA SEEDING AND RADIATION) HTN: Yes Hypercholesterolemia: Yes Liver Disease: No Psychiatric Problems: Yes Seizures: No Thyroid Disease: No - Surgical History Abdominal Surgery: Yes (HERNIA REPAIR 2007) Appendectomy: No Cardiac Surgery: No Cholecystectomy: No Lung Surgery: No Neurologic Surgery: No Orthopedic Surgery: No - Immunization History Immunization Up to Date: Yes - Suicide/Smoking/Psychosocial Hx Smoking History: Former smoker Have you smoked in the past 12 months: No Number of Cigarettes Smoked Daily: 10 Information on smoking cessation initiated: No 'Breaking Loose' booklet given: 12/27/17 Hx Alcohol Use: No Drug/Substance Use Hx: No Substance Use Type: Marijuana Hx Substance Use Treatment: No Review of Systems - Review of Systems Comments:: Constitutional: no fever, no chills HEENT: no throat pain, no dysphagia Cardiovascular: no chest pain, no palpitations Respiratory: no cough, no shortness of breath Gastrointestinal: no abdominal pain, no nausea Genitourinary: no dysuria, no frequency Musculoskeletal: no myalgia, no arthralgia Skin: no rash, +bruises Neurologic: +headache, +weakness *Physical Exam - Vital Signs Last Vital Signs Temp Pulse Resp BP Pulse Ox 97.6 F 70 16 131/65 100 11/17/18 16:26 11/17/18 16:26 11/17/18 16:26 11/17/18 16:26 11/17/18 16:26 - Physical Exam Comments: General: Awake, alert, and fully oriented, in no acute distress Head: No signs of trauma Eyes: EOMI, sclera anicteric ENT: Moist mucus membranes Neck: Normal ROM, supple Lungs: Lungs clear, Normal breath sounds Cardio: Regular rhythm, S1 and S2 present Abdomen: Soft, nontender Extremities: Normal range of motion, Distal pulses present. Minor pain in R. hip upon rocking pelvis SKIN: Warm, Dry, normal turgor Neurologic: Cranial nerves II through XII grossly intact. 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 DDX including but not limited to brain bleed, infection, electrolyte abnormality , anemia Patient's falls likely caused by combination of right-sided weakness as well as unknown hip pathology. Will obtain imaging to assess for acute brain bleed given patient's age and number of falls. Will also perform infectious workup to determine if this is contributing to his falls Plan for admission as patient is not a safe discharge Labs EKG CT Head/C-Spine R. Hip and Pelvis radiograph 11/17/18 16:56 Per patient's , she called Dr. Emery's nurse regarding them coming to the ER 11/17/18 17:33 Had taken 81mg ASA this morning for pain Admits to having problems with opioids in the past. 1g Ofirmev ordered for pain 11/17/18 18:38 EKG: rate 70, QTc 481, NSR, RBBB also present on EKG 18 11/17/18 18:56 CBC WBC 9.3 K/mm3 (4.0-10.0) 11/17/18 17:41 RBC 3.93 M/mm3 (4.00-5.60) L 11/17/18 17:41 Hgb 12.7 GM/dL (11.7-16.9) 11/17/18 17:41 Hct 37.1 % (35.4-49) 11/17/18 17:41 MCV 94.4 fl (80-96) 11/17/18 17:41 MCH 32.3 pg (25.7-33.7) 11/17/18 17:41 MCHC 34.3 g/dl (32.0-35.9) 11/17/18 17:41 RDW 13.1 % (11.9-15.9) 11/17/18 17:41 Plt Count 255 K/MM3 (134-434) 11/17/18 17:41 MPV 7.6 fl (7.5-11.1) 11/17/18 17:41 Absolute Neuts (auto) 4.3 K/mm3 (1.5-8.0) 11/17/18 17:41 Neutrophils % 46.1 % (42.8-82.8) 11/17/18 17:41 Lymphocytes % 38.5 % (8-40) 11/17/18 17:41 Monocytes % 10.2 % (3.8-10.2) 11/17/18 17:41 Eosinophils % 4.6 % (0-4.5) H 11/17/18 17:41 Basophils % 0.6 % (0-2.0) 11/17/18 17:41 Nucleated RBC % 0 % (0-0) 11/17/18 17:41 No anemia or leukocytosis CMP Sodium 144 mmol/L (136-145) 11/17/18 17:41 Potassium 3.7 mmol/L (3.5-5.1) 11/17/18 17:41 Chloride 111 mmol/L (98-107) H 11/17/18 17:41 Carbon Dioxide 25 mmol/L (21-32) 11/17/18 17:41 Anion Gap 8 MMOL/L (8-16) 11/17/18 17:41 BUN 20.6 mg/dL (7-18) H 11/17/18 17:41 Creatinine 1.3 mg/dL (0.55-1.3) 11/17/18 17:41 Est GFR (CKD-EPI)AfAm 64.52 11/17/18 17:41 Est GFR (CKD-EPI)NonAf 55.67 11/17/18 17:41 Random Glucose 141 mg/dL (74-106) H 11/17/18 17:41 Calcium 8.3 mg/dL (8.5-10.1) L 11/17/18 17:41 Total Bilirubin 0.3 mg/dL (0.2-1) 11/17/18 17:41 AST 37 U/L (15-37) 11/17/18 17:41 ALT 33 U/L (13-61) 11/17/18 17:41 Alkaline Phosphatase 136 U/L (45-117) H 11/17/18 17:41 Total Protein 6.9 g/dl (6.4-8.2) 11/17/18 17:41 Albumin 3.2 g/dl (3.4-5.0) L 11/17/18 17:41 Electrolytes WNL Normal Cr No Transaminitis CT C-spine: "Sequential axial images were obtained through the cervical spine from the base of the skull to the thoracic inlet. Coronal and sagittal reconstructed images were also obtained. There is no evidence of fracture, subluxation or acute bony abnormalities. There are mild degenerative arthritic changes throughout the spine. The spinal canal is widely patent with no evidence of cord compromise. IMPRESSION: Mild degenerative arthritis with no fracture or acute pathology." CT Head: "Sequential axial images were obtained from the base of the skull to the vertex. There is no evidence of acute intracranial hemorrhage, mass lesions or infarctions. There is a mild degree of diffuse cerebral atrophy with sulcal widening and ventricular dilatation. There is fluid within the frontal and ethmoid sinuses consistent with acute/chronic sinusitis. The maxillary and sphenoid sinuses are clear. There is no evidence of fracture or acute bony abnormalities. IMPRESSION: 1. No evidence of acute intracranial pathology. 2. Frontal and ethmoid sinusitis. Please see above discussion. " CXR without acute pathology, my impression R. hip and pelvis without dislocation or acute fracture, my impression Hospitalist team paged 11/17/18 19:[address] Smiley who accepted patient for admission under Dr. Linares 11/17/18 19:13 *DC/Admit/Observation/Transfer Diagnosis at time of Disposition: Falls frequently - Discharge Dispostion Condition at time of disposition: Guarded Decision to Admit order: Yes - Referrals Referrals: Star Emery MD [Primary Care Provider] - - Patient Instructions - Post Discharge Activity
[2018-11-17 18:33] LABS: BASO % 0.6 % (0-2.0); EOS % 4.6 % (0-4.5); HEMATOCRIT 37.1 % (35.4-49); HEMOGLOBIN 12.7 GM/dL (11.7-16.9); LYMPH % 38.5 % (8-40); MCH 32.3 pg (25.7-33.7); MCHC 34.3 g/dl (32.0-35.9); MEAN CELL VOLUME 94.4 fl (80-96); MEAN PLT VOLUME 7.6 fl (7.5-11.1); MONO % 10.2 % (3.8-10.2); NEUT % 46.1 % (42.8-82.8); PLATELET COUNT 255 K/MM3 (134-434); RBC 3.93 M/mm3 (4.00-5.60); RDW 13.1 % (11.9-15.9); WHITE BLOOD COUNT 9.3 K/mm3 (4.0-10.0)
[2018-11-17] MEDS ORDERED: ACETAMINOPHEN 1000 MG/100 ML VIAL (NON FORMULARY) IVPB ONE (18:37)
[2018-11-17 18:43] LABS: INR 1.05 (0.83-1.09); PROTHROMBIN TIME (PATIENT) 12.4 SEC (9.7-13.0)
[2018-11-17] MEDS ORDERED: ACETAMINOPHEN INJECTION 100 ML IVPB ONE (18:43)
[2018-11-17 18:55] LABS: ALBUMIN 3.2 g/dl (3.4-5.0); BILIRUBIN,TOTAL 0.3 mg/dL (0.2-1); BLOOD UREA NITROGEN 20.6 mg/dL (7-18); CALCIUM 8.3 mg/dL (8.5-10.1); CREATININE 1.3 mg/dL (0.55-1.3); POTASSIUM 3.7 mmol/L (3.5-5.1); TOT PROT 6.9 g/dl (6.4-8.2)
--- NOTE | 2018-11-17 19:12 | PN ---
Teaching Attending Note Name of Resident: Jeison Henry ATTENDING PHYSICIAN STATEMENT I saw and evaluated the patient. I reviewed the resident's note and discussed the case with the resident. I agree with the resident's findings and plan as documented. SUBJECTIVE: Patient is a 68 year old man with a PMH of CVA (2018) with residual right sided weakness and unsteady gait, Penicillin allergy, Tobacco use, HTN, Prostate cancer (s/p prostate seeding and radiation), Rheumatoid arthritis and HLD, who presents to the ER after multiple falls over the past couple of weeks, increasing over the past 3 days. The patient states earlier today he was not able to pick himself up after a fall and that his found him later on. Patient's states the patient's PCP advised the patient to come in for evaluation. Has fallen about 8 times in the past 3 days. His works and he is alone in the house several hour a day. Uses a wheeled walker. The patient denies chest pain, shortness of breath, headache and dizziness. Denies fever, chills, nausea, vomiting, diarrhea and constipation. Denies dysuria, frequency, urgency and hematuria. OBJECTIVE: Alert Vital Signs Period Temp Pulse Resp BP Sys/Bhandari Pulse Ox Last 24 Hr 97.6 F 70 16 131/65 100 HEENT: No Jaundice, eye redness or discharge, PERRLA, EOMI. Normocephalic, atraumatic. External ears are normal and hearing is grossly intact. No nasal discharge. Neck: Supple, nontender. No palpable adenopathy or thyromegaly. No JVD Chest: Good effort. Clear to auscultation and percussion. Heart: Regular. No S3, rub or murmur Abdomen: Not distended, soft, nontender and no HSM. No rebound or guarding. Normal bowel sounds. Ext: Peripheral pulses intact. Right hip tenderness and tender on movement. No leg edema. Skin: Warm and dry. No petechiae, rash or ecchymosis. Neuro: Alert. Oriented x3. CN 2-12 grossly intact. Sensation grossly intact in all four extremities; mild right hemiparesis. Gait cannot be tested for safety reasons. Psych: Appropriate mood and affect. Good insight. Home Medications Medication Instructions Recorded Escitalopram Oxalate [Lexapro -] 10 mg PO HS 11/16/17 Acetaminophen [Tylenol .Regular 325 mg PO Q6H PRN tablet 11/22/17 Strength -] Aspirin Coated [Ecotrin -] 81 mg PO DAILY tablet.ec 11/22/17 Alprazolam [Xanax] 3 mg PO HS MDD 1 03/19/18 Gabapentin 600 mg PO HS 03/19/18 Gabapentin [Neurontin -] 300 mg PO BID 03/19/18 Clonazepam [Klonopin] 2 mg PO HS 11/17/18 Diphenhydramine [Benadryl -] 2 tab PO HS 11/17/18 Divalproex Sodium [Depakote ER] 3 tab PO HS 11/17/18 Multivitamin [Multiple Vitamins] 1 each PO 11/17/18 Nicotine [Nicotine Patch 14mg/24 1 each TD 11/17/18 hr] Simvastatin [Zocor -] 40 mg PO HS 11/17/18 Abnormal Lab Results 11/17/18 11/17/18 17:41 17:41 RBC 3.93 L Eosinophils % 4.6 H Chloride 111 H BUN 20.6 H Random Glucose 141 H Calcium 8.3 L Alkaline Phosphatase 136 H Albumin 3.2 L ASSESSMENT AND PLAN: 1. Multiple falls - Most likely mechanical falls due to chronic debility after CVA and arthritis. Noncontrast head CT showed frontal and ethmoid sinusitis but no acute intracranial pathology. C-spine CT showed mild degenerative arthritis but no fracture. No fracture noted on hip and pelvic xray. CXR is rotated with an unfolded aorta and no acute infiltrate. EKG shows NSR with RBBB and no significant ST-T wave changes. Will admit him to telemetry for monitoring and implement strict fall precautions. Get CT of hip and pelvis as well as urine toxicology. Consult neurology, PT and most important, renal social worker to explore placement options with patient and his . It is unsafe for him to be home alone. 2. Hypoalbuminemia - Possibly due to combined effects of malnutrition and inflammation associated with comorbid chronic conditions. Will ensure adequate dietary protein intake and also consult wire bound box machine helper. 3. Tobacco Use Counseled on risks associated with tobacco use. We will provide patient all the necessary assistance to facilitate smoking cessation and prescribe Nicotine patch. 4. Hypertension - Restart suitable outpatient antihypertensive drugs when clinically appropriate. Revise regimen to ensure good BP control. Nonpharmacologic measures to control hypertension like weight loss, salt restriction and exercise discussed. 5. DVT prophylaxis - Lovenox 40 mg SQ q 24 hours. 6. Advance directives - Full code
--- NOTE | 2018-11-17 20:45 | HP ---
CHIEF COMPLAINT: frequent falls w/a weakness and hip pain PCP: HISTORY OF PRESENT ILLNESS: 68M with pmh of HLD, chronic anxiety, CVA(November 2017 w/ R-sided weakness), chronic anxiety, mood disorder BIBA to [facility] after returned from work to find pt on floor. Pt states that he had a fall after trying to get out of w/a weakness and hip pain. Did not have the strength to get back up. Denies LOC. Prior to fall, denies SHELTON, dizziness, nausea, vomitting, chest pain, palpitations. Has had multiple falls in the past 2 days(~8x) with the right leg giving away due to weakness/pain and sensation that the join "popped in/out". Has plans to see orthopedist this week for hip issues. Thinks that the falls have been happening since his CVA, which resulted in residual weakness in RLE which has improved only slightly. At baseline, ambulates with FWW. Lives with at home. ER course was notable for: (1) CTH -neg (2) XR hip - neg (3) CXR - neg Recent Travel: none PAST MEDICAL HISTORY: HLD, chronic anxiety, CVA(November 2017 w/ R-sided weakness), chronic anxiety, mood disorder PAST SURGICAL HISTORY: b/l inguinal hernia repair Social History: Smoking: current, 1ppd x 50ys Alcohol: denies Drugs: former MJ Family History: father(leukemia, decesased in 90y/o), mother(heart disease, in 90y/o) Allergies: pencillin(4y/o, swelling) Penicillins Allergy (Verified 11/17/18 16:30) HOME MEDICATIONS: Home Medications Medication Instructions Recorded Escitalopram Oxalate [Lexapro -] 10 mg PO HS 11/16/17 Aspirin Coated [Ecotrin -] 81 mg PO DAILY tablet.ec 11/22/17 Alprazolam [Xanax] 3 mg PO HS MDD 1 03/19/18 Gabapentin 600 mg PO HS 03/19/18 Gabapentin [Neurontin -] 300 mg PO BID 03/19/18 Clonazepam [Klonopin] 2 mg PO HS 11/17/18 Diphenhydramine [Benadryl -] 2 tab PO HS 11/17/18 Divalproex Sodium [Depakote ER] 3 tab PO HS 11/17/18 Multivitamin [Multiple Vitamins] 1 each PO DAILY 11/17/18 Nicotine [Nicotine Patch 14mg/24 1 each TD DAILY 11/17/18 hr] Simvastatin [Zocor -] 40 mg PO HS 11/17/18 REVIEW OF SYSTEMS CONSTITUTIONAL: Absent: fever, chills, diaphoresis, generalized weakness, malaise, loss of appetite, weight change HEENT: Absent: rhinorrhea, nasal congestion, throat pain, throat swelling, difficulty swallowing, mouth swelling, ear pain, eye pain, visual changes CARDIOVASCULAR: Absent: chest pain, syncope, palpitations, irregular heart rate, lightheadedness , peripheral edema RESPIRATORY: wheezes Absent: cough, shortness of breath, dyspnea with exertion, orthopnea, stridor, hemoptysis GASTROINTESTINAL: Absent: abdominal pain, abdominal distension, nausea, vomiting, diarrhea, constipation, melena, hematochezia GENITOURINARY: Absent: dysuria, frequency, urgency, hesitancy, hematuria, flank pain, genital pain MUSCULOSKELETAL: chronic Right hip pain, chronic RLE weakness Absent: arthralgia, joint swelling, back pain, neck pain SKIN: Absent: rash, itching, pallor HEMATOLOGIC/IMMUNOLOGIC: Absent: easy bleeding, easy bruising, lymphadenopathy, frequent infections ENDOCRINE: Absent: unexplained weight gain, unexplained weight loss, heat intolerance, cold intolerance NEUROLOGIC: chronic RLE weakness Absent: headache, focal weakness or paresthesias, dizziness, seizure, mental status changes, bladder or bowel incontinence PSYCHIATRIC: chronic anxiety, chronic mood disorder Absent: depression, suicidal or homicidal ideation, hallucinations. PHYSICAL EXAMINATION Vital Signs - 24 hr 11/17/18 16:26 Temperature 97.6 F Pulse Rate 70 Respiratory 16 Rate Blood Pressure 131/65 O2 Sat by Pulse 100 Oximetry (%) GENERAL: Awake, alert, and fully oriented, in no acute distress. HEAD: NC. Right cheek with old abrasion EYES: Pupils equal, round and reactive to light, extraocular movements intact, sclera anicteric, conjunctiva clear. EARS, NOSE, THROAT: Ears normal, nares patent, oropharynx clear without exudates. Moist mucous membranes. No thrush. NECK: Normal range of motion, supple without lymphadenopathy, JVD, or masses. LUNGS: wheezes to auscultation bilaterally. No crackles. No accessory muscle use. HEART: Regular rate and rhythm, normal S1 and S2 without murmur, rub or gallop. ABDOMEN: Soft, nontender, not distended, no guarding, no rebound, no masses. MUSCULOSKELETAL: No bony deformities or tenderness. Unable to assess RLE McMurphy's due to hip joint pain UPPER EXTREMITIES: 2+ pulses, warm, well-perfused. No cyanosis. No peripheral edema. LOWER EXTREMITIES: 2+ pulses, warm, well-perfused. No calf tenderness. No peripheral edema. NEUROLOGICAL: Cranial nerves II-XII intact. Normal speech. No tongue fasciculations PSYCHIATRIC: Cooperative. Good eye contact. Appropriate mood and affect. SKIN: Warm, dry, normal turgor, no rashes or lesions noted Laboratory Results - last 24 hr 11/17/18 11/17/18 11/17/18 17:41 17:41 17:41 WBC 9.3 RBC 3.93 L Hgb 12.7 Hct 37.1 MCV 94.4 MCH 32.3 MCHC 34.3 RDW 13.1 Plt Count 255 MPV 7.6 Absolute Neuts (auto) 4.3 Neutrophils % 46.1 Lymphocytes % 38.5 Monocytes % 10.2 Eosinophils % 4.6 H Basophils % 0.6 Nucleated RBC % 0 PT with INR INR PTT (Actin FS) 31.9 Sodium 144 Potassium 3.7 Chloride 111 H Carbon Dioxide 25 Anion Gap 8 BUN 20.6 H Creatinine 1.3 Est GFR (CKD-EPI)AfAm 64.52 Est GFR (CKD-EPI)NonAf 55.67 Random Glucose 141 H Calcium 8.3 L Total Bilirubin 0.3 AST 37 ALT 33 Alkaline Phosphatase 136 H Total Protein 6.9 Albumin 3.2 L 11/17/18 17:41 WBC RBC Hgb Hct MCV MCH MCHC RDW Plt Count MPV Absolute Neuts (auto) Neutrophils % Lymphocytes % Monocytes % Eosinophils % Basophils % Nucleated RBC % PT with INR 12.40 INR 1.05 PTT (Actin FS) Sodium Potassium Chloride Carbon Dioxide Anion Gap BUN Creatinine Est GFR (CKD-EPI)AfAm Est GFR (CKD-EPI)NonAf Random Glucose Calcium Total Bilirubin AST ALT Alkaline Phosphatase Total Protein Albumin ASSESSMENT/PLAN: 68M with pmh of HLD, chronic anxiety, CVA(November 2017 w/ R-sided weakness), chronic anxiety, mood disorder BIBA for fall likely 2/2 to mechanical etiologies , less likely neurogenic or cardiogenic. 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 - New Patient This patient is new to me today: Yes Date on this admission: 11/19/18 - Critical Care Critical Care patient: No ATTENDING PHYSICIAN STATEMENT I saw and evaluated the patient. I reviewed the resident's note and discussed the case with the resident. I agree with the resident's findings and plan as documented. SUBJECTIVE: OBJECTIVE: ASSESSMENT AND PLAN:
[2018-11-17] MEDS: NICOTINE 14 MG/24 HOURS TOPICAL PATCH TD SCH (21:37)
[2018-11-17] MEDS ORDERED: ALPRAZolam 2 MG TABLET PO SCH (22:00)
[2018-11-17] MEDS ORDERED: clonazePAM 2 MG TABLET PO SCH (22:00)
[2018-11-17 22:16] VITALS: BMI 27.1
[2018-11-17] MEDS ORDERED: ALPRAZolam 2 MG TABLET PO ONE (22:25)
[2018-11-17] MEDS: ESCITALOPRAM OXALATE 20 MG TABLET (FP) PO SCH (22:39)
[2018-11-17] MEDS: ATORVASTATIN CA 20 MG TABLET (FP) PO SCH (22:39)
[2018-11-17] MEDS: MELATONIN 5 MG TABLETS PO SCH (22:40)
[2018-11-17] MEDS: DIVALPROEX NA *ER* EXTEND REL 500 MG TABLET.SA (FP) PO SCH (22:40)
[2018-11-17 23:13] LABS: PH,URINE 5.5 (5.0-8.0); URINE APPEARANCE CLEAR; URINE BILIRUBIN NEGATIVE (NEGATIVE); URINE COLOR YELLOW; URINE GLUCOSE (UA) NEGATIVE (NEGATIVE); URINE KETONE TRACE (NEGATIVE); URINE LEUK ESTERASE NEGATIVE (NEGATIVE); URINE NITRITE NEGATIVE (NEGATIVE); URINE PROTEIN NEGATIVE (NEGATIVE); URINE UROBILINOGEN 0.2 mg/dL (0.2-1.0)
[2018-11-17 23:26] LABS: COCAINE, UR NEGATIVE ng/ml (CUTOFF=300); METHADONE, UR NEGATIVE ng/ml (CUTOFF=300); OPIATES, URI NEGATIVE ng/ml (CUTOFF=300); PHENCYCLIDINE,URINE NEGATIVE ng/ml (CUTOFF=25); URINE AMPHETAMINES NEGATIVE ng/ml (CUTOFF=500); URINE BARBITURATES NEGATIVE ng/ml (CUTOFF=200)
[2018-11-17 23:28] LABS: URINE BENZODIAZEPINES POSITIVE ng/ml (CUTOFF=200)
[2018-11-18 06:37] LABS: HEMATOCRIT 35.5 % (35.4-49); MCH 31.9 pg (25.7-33.7); MCHC 33.7 g/dl (32.0-35.9); MEAN CELL VOLUME 94.5 fl (80-96); MEAN PLT VOLUME 7.4 fl (7.5-11.1); PLATELET COUNT 222 K/MM3 (134-434); RBC 3.75 M/mm3 (4.00-5.60); RDW 13.2 % (11.9-15.9); WHITE BLOOD COUNT 8.3 K/mm3 (4.0-10.0)
[2018-11-18 07:36] LABS: CALCIUM 8.2 mg/dL (8.5-10.1); CREATININE 1.2 mg/dL (0.55-1.3); MAGNESIUM 2.2 mg/dL (1.8-2.4); PHOSPHOROUS 3.6 mg/dL (2.5-4.9); POTASSIUM 3.9 mmol/L (3.5-5.1)
[2018-11-18] MEDS: NICOTINE 14 MG/24 HOURS TOPICAL PATCH TD SCH (09:37)
[2018-11-18] MEDS: ENOXAPARIN NA (PORCINE) 40 MG/0.4 ML DISP.SYRIN SQ SCH (09:37)
--- NOTE | 2018-11-18 09:51 | PN ---
Teaching Attending Note Name of Resident: Sonya Mathias ATTENDING PHYSICIAN STATEMENT I saw and evaluated the patient. I reviewed the resident's note and discussed the case with the resident. I agree with the resident's findings and plan as documented with exceptions below. SUBJECTIVE: Patient seen and examined. denies right hip pain currently, reports when moves his right hip. no back pain, tingling/numbness, weakness, urinary or bowel symptoms otherwise. OBJECTIVE: Vital Signs Period Temp Pulse Resp BP Sys/Bhandari Pulse Ox Last 24 Hr 97.6 F-97.7 F 63-70 16-20 111-159/65-81 94-100 Intake & Output 11/15/18 11/16/18 11/17/18 11/18/18 23:59 23:59 23:59 23:59 Output Total 200 350 Balance -200 -350 Weight 205 lb 6 oz General: sitting in bed in no acute distress Chest; CTAB, no rales or wheezing Abdomen: soft, NT, ND, pos bowel sounds Musculoskeletal no spinal tenderness, SLR RLE upt 20 degrees limited by pain, SLR LLE utp 50 degrees, sensation intact and symmetric to light touch bilaterally, power left foot 5/5, Right foot 4+/5 Extremities: no edema or erythema noted Home Medications Medication Instructions Recorded Escitalopram Oxalate [Lexapro -] 10 mg PO HS 11/16/17 Aspirin Coated [Ecotrin -] 81 mg PO DAILY tablet.ec 11/22/17 Alprazolam [Xanax] 3 mg PO HS MDD 1 03/19/18 Gabapentin 600 mg PO HS 03/19/18 Gabapentin [Neurontin -] 300 mg PO BID 03/19/18 Clonazepam [Klonopin] 2 mg PO HS 11/17/18 Diphenhydramine [Benadryl -] 2 tab PO HS 11/17/18 Divalproex Sodium [Depakote ER] 3 tab PO HS 11/17/18 Multivitamin [Multiple Vitamins] 1 each PO DAILY 11/17/18 Nicotine [Nicotine Patch 14mg/24 1 each TD DAILY 11/17/18 hr] Simvastatin [Zocor -] 40 mg PO HS 11/17/18 Active Medications Alprazolam (Xanax -) 3 mg PO HS [facility] Aspirin (Ecotrin -) 81 mg PO DAILY [facility] Last Admin: 11/18/18 09:37 Dose: 81 mg Atorvastatin Calcium (Lipitor -) 20 mg PO HS [facility] Last Admin: 11/17/18 22:39 Dose: 20 mg Clonazepam (Klonopin -) 2 mg PO [facility] Divalproex Sodium (Depakote *Er* -) 1,500 mg PO HS [facility] Last Admin: 11/17/18 22:40 Dose: 1,500 mg Enoxaparin Sodium (Lovenox -) 40 mg SQ DAILY [facility] Last Admin: 11/18/18 09:37 Dose: 40 mg Escitalopram Oxalate (Lexapro -) 10 mg PO HS [facility] Last Admin: 11/17/18 22:39 Dose: 10 mg Melatonin (Melatonin) 10 mg PO HS [facility] Last Admin: 11/17/18 22:40 Dose: 10 mg Nicotine (Nicoderm Patch -) 14 mg TD DAILY [facility] Last Admin: 11/18/18 09:37 Dose: 14 mg Laboratory Results - last 24 hr 11/17/18 11/17/18 11/17/18 17:41 17:41 17:41 WBC 9.3 RBC 3.93 L Hgb 12.7 Hct 37.1 MCV 94.4 MCH 32.3 MCHC 34.3 RDW 13.1 Plt Count 255 MPV 7.6 Absolute Neuts (auto) 4.3 Neutrophils % 46.1 Lymphocytes % 38.5 Monocytes % 10.2 Eosinophils % 4.6 H Basophils % 0.6 Nucleated RBC % 0 PT with INR INR PTT (Actin FS) 31.9 Sodium 144 Potassium 3.7 Chloride 111 H Carbon Dioxide 25 Anion Gap 8 BUN 20.6 H Creatinine 1.3 Est GFR (CKD-EPI)AfAm 64.52 Est GFR (CKD-EPI)NonAf 55.67 Random Glucose 141 H Calcium 8.3 L Phosphorus Magnesium Total Bilirubin 0.3 AST 37 ALT 33 Alkaline Phosphatase 136 H Total Protein 6.9 Albumin 3.2 L Vitamin B12 Serum Folate TSH Urine Color Urine Appearance Urine pH Ur Specific Zalma Urine Protein Urine Glucose (UA) Urine Ketones Urine Blood Urine Nitrite Urine Bilirubin Urine Urobilinogen Ur Leukocyte Esterase Opiates Screen Methadone Screen Barbiturate Screen Valproic Acid Phencyclidine Screen Ur Amphetamines Screen MDMA (Ecstasy) Screen Benzodiazepines Screen Cocaine Screen U Marijuana (THC) Screen Blood Type Antibody Screen 11/17/18 11/17/18 11/17/18 17:41 21:30 22:38 WBC RBC Hgb Hct MCV MCH MCHC RDW Plt Count MPV Absolute Neuts (auto) Neutrophils % Lymphocytes % Monocytes % Eosinophils % Basophils % Nucleated RBC % PT with INR 12.40 INR 1.05 PTT (Actin FS) Sodium Potassium Chloride Carbon Dioxide Anion Gap BUN Creatinine Est GFR (CKD-EPI)AfAm Est GFR (CKD-EPI)NonAf Random Glucose Calcium Phosphorus Magnesium Total Bilirubin AST ALT Alkaline Phosphatase Total Protein Albumin Vitamin B12 Serum Folate TSH Urine Color Yellow Urine Appearance Clear Urine pH 5.5 Ur Specific Zalma 1.024 Urine Protein Negative Urine Glucose (UA) Negative Urine Ketones Trace H Urine Blood Negative Urine Nitrite Negative Urine Bilirubin Negative Urine Urobilinogen 0.2 Ur Leukocyte Esterase Negative Opiates Screen Methadone Screen Barbiturate Screen Valproic Acid Phencyclidine Screen Ur Amphetamines Screen MDMA (Ecstasy) Screen Benzodiazepines Screen Cocaine Screen U Marijuana (THC) Screen Blood Type B POSITIVE Antibody Screen Negative 11/17/18 11/18/18 11/18/18 22:38 05:49 05:49 WBC 8.3 RBC 3.75 L Hgb 12.0 Hct 35.5 MCV 94.5 MCH 31.9 MCHC 33.7 RDW 13.2 Plt Count 222 MPV 7.4 L Absolute Neuts (auto) Neutrophils % Lymphocytes % Monocytes % Eosinophils % Basophils % Nucleated RBC % PT with INR INR PTT (Actin FS) Sodium 144 Potassium 3.9 Chloride 112 H Carbon Dioxide 25 Anion Gap 6 L BUN 19.0 H Creatinine 1.2 Est GFR (CKD-EPI)AfAm 71.08 Est GFR (CKD-EPI)NonAf 61.33 Random Glucose 102 Calcium 8.2 L Phosphorus 3.6 Magnesium 2.2 Total Bilirubin AST ALT Alkaline Phosphatase Total Protein Albumin Vitamin B12 Serum Folate 26 H TSH 3.40 D Urine Color Urine Appearance Urine pH Ur Specific Zalma Urine Protein Urine Glucose (UA) Urine Ketones Urine Blood Urine Nitrite Urine Bilirubin Urine Urobilinogen Ur Leukocyte Esterase Opiates Screen Negative Methadone Screen Negative Barbiturate Screen Negative Valproic Acid Phencyclidine Screen Negative Ur Amphetamines Screen Negative MDMA (Ecstasy) Screen Negative Benzodiazepines Screen Positive A* Cocaine Screen Negative U Marijuana (THC) Screen Negative Blood Type Antibody Screen 11/18/18 11/18/18 05:49 05:49 WBC RBC Hgb Hct MCV MCH MCHC RDW Plt Count MPV Absolute Neuts (auto) Neutrophils % Lymphocytes % Monocytes % Eosinophils % Basophils % Nucleated RBC % PT with INR INR PTT (Actin FS) Sodium Potassium Chloride Carbon Dioxide Anion Gap BUN Creatinine Est GFR (CKD-EPI)AfAm Est GFR (CKD-EPI)NonAf Random Glucose Calcium Phosphorus Magnesium Total Bilirubin AST ALT Alkaline Phosphatase Total Protein Albumin Vitamin B12 1079 H Serum Folate TSH Urine Color Urine Appearance Urine pH Ur Specific Zalma Urine Protein Urine Glucose (UA) Urine Ketones Urine Blood Urine Nitrite Urine Bilirubin Urine Urobilinogen Ur Leukocyte Esterase Opiates Screen Methadone Screen Barbiturate Screen Valproic Acid 72.4 Phencyclidine Screen Ur Amphetamines Screen MDMA (Ecstasy) Screen Benzodiazepines Screen Cocaine Screen U Marijuana (THC) Screen Blood Type Antibody Screen CT head/C-spine/Right hip xray results noted ASSESSMENT AND PLAN: 68 yom with PMHx of HLD, chronic anxiety, CVA(November 2017 w/ R-sided weakness), chronic anxiety, mood disorder admitted with fall and right hip pain x 1 month -mechanical fall -Right hip pain x 1 month, suspect osteoarthritis, exacerbated by fall -CVA 11/2017 with right sided weakness -Chronic anxiety disorder -HLD -Mood disorder Plan: Follow up CT pelvis. Add standing tylenol and low dose tramadol prn. Caution with opioids given on multiple sedating meds and fall risk. Orthopedic consult Dr. Holden PT eval Reconcile home meds Dispo anticipate SNF pending CT pelvis, ortho input and PT eval Plan discussed with patient, all questions answered.
[2018-11-18] MEDS ORDERED: ALPRAZolam 0.25 MG TABLET PO PRN ×2 (09:57→18:58)
[2018-11-18] MEDS ORDERED: ASPIRIN COATED 81 MG TABLET.EC PO SCH (10:00)
--- NOTE | 2018-11-18 12:07 | EKG ---
Test Reason : Blood Pressure : / mmHG Vent. Rate : 070 BPM Atrial Rate : 070 BPM P-R Int : 152 ms QRS Dur : 146 ms QT Int : 446 ms P-R-T Axes : 031 014 048 degrees QTc Int : 481 ms NORMAL SINUS RHYTHM RIGHT BUNDLE BRANCH BLOCK ABNORMAL ECG WHEN COMPARED WITH ECG OF 19-MAR-2018 13:55, T WAVE INVERSION NOW EVIDENT IN ANTERIOR LEADS Confirmed by Christos Levine ([id number]) on 11/18/2018 12:06:49 PM Referred By: Confirmed By:Christos Levine
--- NOTE | 2018-11-18 12:27 | PN ---
Progress Note (short form) - Note Progress Note: Hospitalist documented today. Patient is followed by psychiatry as an outpatient and has been prescribed Alprazolam by this MD with doses from 6mg of Alprazolam each nite which has now been weaned down to 3mg HS. He has multiple falls at home with his right leg giving out. Rotation of his hip joint elicits a great deal of pain. The patient also has a history of a CVA documented only on MRI's and not brain CAT scans.
[2018-11-18] MEDS: ACETAMINOPHEN 325 MG TABLET (FP) PO SCH ×2 (13:45→21:44)
[2018-11-18] MEDS: traMADol HCL 50 MG TABLET PO PRN (13:46)
--- NOTE | 2018-11-18 14:51 | CON.ORTH ---
Consult Reason for Consultation:: right hip pain - Past Medical History [employer] B[employer] MAN: Yes: Peripheral Neuropathy Cardio/Vascular: Yes: HTN Renal/: Yes: Cancer (prostate (s/p RT)) Psych: Yes: Anxiety, Bipolar, Depression Musculoskeletal: Yes: Chronic low back pain (/ spinal stenosis) Rheumatology: Yes: Rheumatoid Arthritis Dermatology: Yes: Basal Cell (-s/p multiple removals) - Past Surgical History Past Surgical History: Yes: Cataract Removal, Hernia Repair (umbilical, inguinal hernia repair) - Alcohol/Substance Use Hx Alcohol Use: No History of Substance Use: reports: None - Smoking History Smoking history: Former smoker Have you smoked in the past 12 months: Yes Aproximately how many cigarettes per day: 10 - Social History Usual Living Arrangement: With Spouse ADL: Independent 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 History of Recent Travel: No Home Medications - Allergies Allergies/Adverse Reactions: Allergies Allergy/AdvReac Type Severity Reaction Status Date / Time Penicillins Allergy Verified 11/17/18 16:30 - Home Medications Home Medications: Ambulatory Orders Escitalopram Oxalate [Lexapro -] 10 mg PO HS 11/16/17 Aspirin Coated [Ecotrin -] 81 mg PO DAILY tablet.ec 11/22/17 Clonazepam [Klonopin] 4 mg PO HS 11/17/18 Diphenhydramine [Benadryl -] 2 tab PO HS 11/17/18 Alprazolam [Xanax] 1 mg PO QID 11/18/18 Family Disease History - Family Disease History Family Disease History: CA: Mother, Other: Daughter (autism) Physical Exam for Ortho Vital Signs: Vital Signs Temperature 97.5 F L 11/18/18 10:00 Pulse Rate 61 11/18/18 10:00 Respiratory Rate 18 11/18/18 10:00 Blood Pressure 151/82 11/18/18 10:00 O2 Sat by Pulse Oximetry (%) 95 11/18/18 08:30 Labs: CBC, BMP 11/18/18 05:49 11/18/18 05:49 INR, PTT INR 1.05 (0.83-1.09) 11/17/18 17:41 - Lower Extremity Hip: Yes: Right, Decreased ROM, Pain, Swelling, Other (nvi) Imaging - Results X-ray: Report Reviewed, Image Reviewed Cat Scan: Report Reviewed, Image Reviewed Assessment/Plan 68M with pmh of HLD, chronic anxiety, CVA(November 2017 w/ R-sided weakness), chronic anxiety, mood disorder BIBA to [facility] after returned from work to find pt on floor. Pt states that he had a fall after trying to get out of w/a weakness and hip pain. Did not have the strength to get back up. Denies LOC. Prior to fall, denies SHELTON, dizziness, nausea, vomitting, chest pain, palpitations. Has had multiple falls in the past 2 days(~8x) with the right leg giving away due to weakness/pain and sensation that the join "popped in/out". Has plans to see orthopedist this week for hip issues. Thinks that the falls have been happening since his CVA, which resulted in residual weakness in RLE which has improved only slightly. a/p right hip severe grade 4 djd Risks and benefits were d/w pt and in detail elect to have a right marin thr [facility] CT scan ordered surgical clearance hold aspirin will be transferred to [facility] for surgery this Saturday d/w Dr. Rutherford
[2018-11-18] MEDS ORDERED: ALPRAZolam 2 MG TABLET ONE (21:39)
[2018-11-18] MEDS ORDERED: ALPRAZolam 0.25 MG TABLET ONE (21:40)
[2018-11-18] MEDS: ALPRAZOLAM PO PRN (21:41)
[2018-11-18] MEDS: DIVALPROEX NA *ER* EXTEND REL 500 MG TABLET.SA (FP) PO SCH (21:42)
[2018-11-18] MEDS: ATORVASTATIN CA 20 MG TABLET (FP) PO SCH (21:43)
[2018-11-18] MEDS: LORazepam 1 MG TABLET PO SCH (21:43)
[2018-11-18] MEDS: ESCITALOPRAM OXALATE 20 MG TABLET (FP) PO SCH (21:43)
[2018-11-18] MEDS: MELATONIN 5 MG TABLETS PO SCH (21:45)
--- NOTE | 2018-11-18 22:03 | PN ---
Physical Exam: SUBJECTIVE: Patient seen and examined. pt reports no chest pain, no SOB. Reports up to 4 falls a day from bucking of R hip. Having breakfast. OBJECTIVE: Vital Signs Period Temp Pulse Resp BP Sys/Bhandari Pulse Ox Last 24 Hr 97.5 F-97.6 F 56-66 18-18 111-151/69-94 94-95 Vital Signs Temp 97.6 F 11/18/18 18:16 Pulse 56 L 11/18/18 18:16 Resp 18 11/18/18 18:16 BP 141/94 11/18/18 18:16 Pulse Ox 95 11/18/18 08:30 Intake & Output 11/17/18 11/18/18 11/18/18 23:59 11:59 23:59 Intake Total 400 Output Total 200 350 800 Balance -200 -350 -400 Weight 93.157 kg Intake: Oral 400 Output: Urine 200 350 800 Void 200 350 800 Other: Voiding Method Urinal Urinal Urinal # Unmeasured Voids Void 2 Bowel Movement No No No Height 1.85 m Body Mass Index (BMI) 27.1 Weight Measurement Method Patient Lift Scale GENERAL: The patient is awake, alert, and fully oriented, in no acute distress. HEAD: Normal with no signs of trauma. EYES: PERRL, extraocular movements intact, ENT: moist mucous membranes. LUNGS: Breath sounds equal, clear to auscultation bilaterally HEART: Regular rate and rhythm, S1, S2 ABDOMEN: Soft, nontender, nondistended EXTREMITIES: No swelling, no redness in right hip. 2+ pulses, warm, well- perfused, no edema. NEUROLOGICAL: Cranial nerves II through XII grossly intact. Normal speech, gait not observed. SKIN: RUE bruise CBC, BMP 11/18/18 05:49 11/18/18 05:49 Laboratory Results - last 24 hr 11/17/18 11/17/18 11/17/18 21:30 22:38 22:38 WBC RBC Hgb Hct MCV MCH MCHC RDW Plt Count MPV Sodium Potassium Chloride Carbon Dioxide Anion Gap BUN Creatinine Est GFR (CKD-EPI)AfAm Est GFR (CKD-EPI)NonAf Random Glucose Calcium Phosphorus Magnesium Vitamin B12 Serum Folate TSH Urine Color Yellow Urine Appearance Clear Urine pH 5.5 Ur Specific [place] 1.024 Urine Protein Negative Urine Glucose (UA) Negative Urine Ketones Trace H Urine Blood Negative Urine Nitrite Negative Urine Bilirubin Negative Urine Urobilinogen 0.2 Ur Leukocyte Esterase Negative Opiates Screen Negative Methadone Screen Negative Barbiturate Screen Negative Valproic Acid Phencyclidine Screen Negative Ur Amphetamines Screen Negative MDMA (Ecstasy) Screen Negative Benzodiazepines Screen Positive A* Cocaine Screen Negative U Marijuana (THC) Screen Negative Blood Type B POSITIVE Antibody Screen Negative 11/18/18 11/18/18 11/18/18 05:49 05:49 05:49 WBC 8.3 RBC 3.75 L Hgb 12.0 Hct 35.5 MCV 94.5 MCH 31.9 MCHC 33.7 RDW 13.2 Plt Count 222 MPV 7.4 L Sodium 144 Potassium 3.9 Chloride 112 H Carbon Dioxide 25 Anion Gap 6 L BUN 19.0 H Creatinine 1.2 Est GFR (CKD-EPI)AfAm 71.08 Est GFR (CKD-EPI)NonAf 61.33 Random Glucose 102 Calcium 8.2 L Phosphorus 3.6 Magnesium 2.2 Vitamin B12 Serum Folate 26 H TSH 3.40 D Urine Color Urine Appearance Urine pH Ur Specific [place] Urine Protein Urine Glucose (UA) Urine Ketones Urine Blood Urine Nitrite Urine Bilirubin Urine Urobilinogen Ur Leukocyte Esterase Opiates Screen Methadone Screen Barbiturate Screen Valproic Acid 72.4 Phencyclidine Screen Ur Amphetamines Screen MDMA (Ecstasy) Screen Benzodiazepines Screen Cocaine Screen U Marijuana (THC) Screen Blood Type Antibody Screen 11/18/18 05:49 WBC RBC Hgb Hct MCV MCH MCHC RDW Plt Count MPV Sodium Potassium Chloride Carbon Dioxide Anion Gap BUN Creatinine Est GFR (CKD-EPI)AfAm Est GFR (CKD-EPI)NonAf Random Glucose Calcium Phosphorus Magnesium Vitamin B12 1079 H Serum Folate TSH Urine Color Urine Appearance Urine pH Ur Specific [place] Urine Protein Urine Glucose (UA) Urine Ketones Urine Blood Urine Nitrite Urine Bilirubin Urine Urobilinogen Ur Leukocyte Esterase Opiates Screen Methadone Screen Barbiturate Screen Valproic Acid Phencyclidine Screen Ur Amphetamines Screen MDMA (Ecstasy) Screen Benzodiazepines Screen Cocaine Screen U Marijuana (THC) Screen Blood Type Antibody Screen Active Medications Generic Name Dose Route Start Last Admin Trade Name Freq PRN Reason Stop Dose Admin Acetaminophen 975 mg 11/18/18 14:00 11/18/18 21:44 Tylenol - PO 975 mg TID OSCAR Administration Alprazolam 2 mg/ Alprazolam 1 3 mg 11/18/18 22:00 11/18/18 21:41 mg PO 3 mg HS PRN Administration ANXIETY Atorvastatin Calcium 20 mg 11/17/18 22:00 11/18/18 21:43 Lipitor - PO 20 mg HS OSCAR Administration Divalproex Sodium 1,500 mg 11/17/18 22:00 11/18/18 21:42 Depakote *Er* - PO 1,500 mg HS OSCAR Administration Enoxaparin Sodium 40 mg 11/18/18 10:00 11/18/18 09:37 Lovenox - SQ 40 mg DAILY OSCAR Administration Escitalopram Oxalate 10 mg 11/17/18 22:00 11/18/18 21:43 Lexapro - PO 10 mg HS OSCAR Administration Lorazepam 3 mg 11/18/18 22:00 11/18/18 21:43 Ativan - PO 3 mg HS OSCAR Administration Melatonin 10 mg 11/17/18 22:00 11/18/18 21:45 Melatonin PO 10 mg HS OSCAR Administration Nicotine 14 mg 11/17/18 20:45 11/18/18 09:37 Nicoderm Patch - TD 14 mg DAILY O[facility] Administration Tramadol HCl 25 mg 11/18/18 10:00 11/18/18 13:46 Ultram - PO 25 mg Q8H PRN Administration PAIN LEVEL 7 - 10 Current Medications Acetaminophen (Tylenol -) 975 mg PO TID [facility] Last Admin: 11/18/18 21:44 Dose: 975 mg Alprazolam 2 mg/ Alprazolam 1 (mg) 3 mg PO HS PRN PRN Reason: ANXIETY Last Admin: 11/18/18 21:41 Dose: 3 mg Atorvastatin Calcium (Lipitor -) 20 mg PO HS [facility] Last Admin: 11/18/18 21:43 Dose: 20 mg Divalproex Sodium (Depakote *Er* -) 1,500 mg PO HS [facility] Last Admin: 11/18/18 21:42 Dose: 1,500 mg Enoxaparin Sodium (Lovenox -) 40 mg SQ DAILY [facility] Last Admin: 11/18/18 09:37 Dose: 40 mg Escitalopram Oxalate (Lexapro -) 10 mg PO HS [facility] Last Admin: 11/18/18 21:43 Dose: 10 mg Lorazepam (Ativan -) 3 mg PO HS [facility] Last Admin: 11/18/18 21:43 Dose: 3 mg Melatonin (Melatonin) 10 mg PO HS [facility] Last Admin: 11/18/18 21:45 Dose: 10 mg Nicotine (Nicoderm Patch -) 14 mg TD DAILY [facility] Last Admin: 11/18/18 09:37 Dose: 14 mg Tramadol HCl (Ultram -) 25 mg PO Q8H PRN PRN Reason: PAIN LEVEL 7 - 10 Last Admin: 11/18/18 13:46 Dose: 25 mg Ambulatory Orders Escitalopram Oxalate [Lexapro -] 10 mg PO HS 11/16/17 Aspirin Coated [Ecotrin -] 81 mg PO DAILY tablet.ec 11/22/17 Clonazepam [Klonopin] 4 mg PO HS 11/17/18 Diphenhydramine [Benadryl -] 2 tab PO HS 11/17/18 Alprazolam [Xanax] 1 mg PO QID 11/18/18 ASSESSMENT/PLAN: 68M with pmh of HLD, chronic anxiety, CVA(November 2017 w/ R-sided weakness), peripheral neuropathy, prostate Ca s/p RT, RhA, multiple basal cancer removals, chronic anxiety, mood disorder BIBA for fall likely 2/2 to mechanical etiologies , less likely neurogenic or cardiogenic. # chronic Right hip pain -XR hip(11/17) -- neg - CT degenerative joint dx grade 4 per ortho - Ortho consult- Dr Holden -Cont tramadol 25 PO Q8H - Ramiro CT ordered per ortho -For transferred to [place] for surgery this Saturday -Ortho requesting surgical clearance and to hold ASA # fall w/o LOC > CTH(11/17) -- neg -Pt now with signif DJD disease on CT -On significant meds at home, incluidng lexapro, klonipin, banadryl and xanax, although pt denies chnage in level of consciousness during falls - NIHSS ~2 - TSH, B12, Folate - urine tox # chronic anxiety - Cont home xanax- appears to be 3mg HS, with 1mg PRN dose on board -klonopin, gabapentin on hold # chronic insomonia - Per Dr Emery, pt now on xanax, 3mg daily, cont - klonopin, -no longer on gabapentin -per pharmacy - melantonin 10mg qPM, home benadryl held # chronic tobacco - cw nicotine patch, patch no longer prescribed in paharmacy DISPO - fu PT evaluation - fu SW consult - likely SNF vs rehab vs home RESERVATIONS AGENT/PT Visit type - Emergency Visit Emergency Visit: Yes ED Registration Date: 11/17/18 Care time: The patient presented to the Emergency Department on the above date and was hospitalized for further evaluation of their emergent condition. - New Patient This patient is new to me today: Yes Date on this admission: 11/18/18 - Critical Care Critical Care patient: No - Discharge Referral Referred to [facility] Med P.C.: No ATTENDING PHYSICIAN STATEMENT I saw and evaluated the patient. I reviewed the resident's note and discussed the case with the resident. I agree with the resident's findings and plan as documented. SUBJECTIVE: OBJECTIVE: ASSESSMENT AND PLAN:
[2018-11-18] MEDS ORDERED: MAG HYDROX/AL HYDROX/SIMETH 30 ML UNIT-DOSE CUP PO PRN (23:52)
--- NOTE | 2018-11-19 03:45 | PDOC ---
Documentation entered by Christa Perry SCRIBE, acting as scribe for Arabella Graves MD. Arabella Graves MD: This documentation has been prepared by the Orlando villegas Sammi, SCRIBE, under my direction and personally reviewed by me in its entirety. I confirm that the documentation accurately reflects all work, treatment, procedures, and medical decision making performed by me. Attending Attestation - Resident Resident Name: Angelica Syed - ED Attending Attestation I have performed the following: I have examined & evaluated the patient, The case was reviewed & discussed with the resident, I agree w/resident's findings & plan, Exceptions are as noted - HPI HPI: 11/17/18 18:34 The patient is a 68 year old male, with a significant PMH of CVA last summer, HTN, prostrate CA, who presents to the emergency department for evaluation s/p multiple falls over the past several couple of weeks, increasing over the past 3 days. The patient states earlier today he was not able to pick himself up after a fall and that his found him later on. Patient's states the patient's PCP advised the patient to come in for evaluation. The patient denies chest pain, shortness of breath, headache and dizziness. Denies fever, chills, nausea, vomiting, diarrhea and constipation. Denies dysuria, frequency, urgency and hematuria. Allergies: Penicillin PCP: Yuly - Physicial Exam PE: 11/17/18 19:13 tall 68 yo male VIKI after having multiple falls over the past week head ncat, no scalp lacerations eyes alexander eomi neck no midline tenderness lungs cta b/l cvs [id number] abd no rebound,no guarding extremities rt hip tenderness skin warn and dry ,no lacerations neuro alert and conversant, chronic rt leg weakness - Medical Decision Making 11/17/18 19:16 68-year-old male with a history of CVA with right sided weakness, hypertension, rheumatoid arthritis, hyperlipidemia, prostate cancer status post prostate seeding and radiationhas a history of unsteady gait since his stroke, but they have become much more frequent in the last week. He feels that his hip gives out and he falls. Social history tobacco smoker 07/08/19 19:36 ct scan head no acute intracranial pathology ct c spine no acute fracture or subluxation labs unremarkable pt admitted
[2018-11-19] MEDS ORDERED: PT OWN MED DRAWER 7, Y5N ONE (05:26)
[2018-11-19] MEDS: ACETAMINOPHEN 325 MG TABLET (FP) PO SCH ×3 (06:04→22:31)
--- NOTE | 2018-11-19 08:35 | PN ---
Progress Note (short form) - Note Progress Note: The Hospitalist to document today. Paln: Ramiro surgery right hip Saturday at [facility] if there are no contraindications from Cardiology, Pulmonary or neurology. Hx. active smoking and CVA on MRI in December 2017.
--- NOTE | 2018-11-19 09:32 | PN ---
Physical Exam: SUBJECTIVE: Patient seen and examined. No CP, no SOB, having breakfast. OBJECTIVE: Vital Signs Period Temp Pulse Resp BP Sys/Bhandari Pulse Ox Last 24 Hr 97.5 F-98.0 F 56-66 18-20 120-151/74-94 96 Vital Signs Temp 97.4 F L 11/19/18 22:00 Pulse 69 11/19/18 22:00 Resp 20 11/19/18 22:00 BP 134/95 11/19/18 22:00 Pulse Ox 96 11/19/18 09:00 Intake & Output 11/18/18 11/19/18 11/19/18 23:59 11:59 23:59 Intake Total 1000 450 Output Total 1600 1225 Balance -600 -775 Intake: Oral 1000 450 Output: Urine 1600 1225 Void 1600 1225 Other: Voiding Method Urinal Urinal Urinal # Unmeasured Voids Void 2 1 1 Bowel Movement No Yes No # Bowel Movements 1 GENERAL: The patient is awake, alert, and fully oriented, in no acute distress. LUNGS: Breath sounds equal, clear to auscultation bilaterally HEART: Regular rate and rhythm, S1, S2 ABDOMEN: Soft, nontender, nondistended, normoactive bowel sounds EXTREMITIES: 2+ pulses, warm, well-perfused, no edema. NEUROLOGICAL: Cranial nerves II through XII grossly intact. Normal speech, gait not observed. Active Medications Generic Name Dose Route Start Last Admin Trade Name Freq PRN Reason Stop Dose Admin Acetaminophen 975 mg 11/18/18 14:00 11/19/18 06:04 Tylenol - PO 975 mg TID OSCAR Administration Alprazolam 2 mg/ Alprazolam 1 3 mg 11/18/18 22:00 11/18/18 21:41 mg PO 3 mg HS PRN Administration ANXIETY Atorvastatin Calcium 20 mg 11/17/18 22:00 11/18/18 21:43 Lipitor - PO 20 mg HS OSCAR Administration Divalproex Sodium 1,500 mg 11/17/18 22:00 11/18/18 21:42 Depakote *Er* - PO 1,500 mg HS [facility]SC[facility] Administration Enoxaparin Sodium 40 mg 11/18/18 10:00 11/18/18 09:37 Lovenox - SQ 40 mg DAILY [facility] Administration Escitalopram Oxalate 10 mg 11/17/18 22:00 11/18/18 21:43 Lexapro - PO 10 mg HS OSCAR Administration Lorazepam 3 mg 11/18/18 22:00 11/18/18 21:43 Ativan - PO 3 mg HS OSCAR Administration Melatonin 10 mg 11/17/18 22:00 11/18/18 21:45 Melatonin PO 10 mg HS OSCAR Administration Nicotine 14 mg 11/17/18 20:45 11/18/18 09:37 Nicoderm Patch - TD 14 mg DAILY [facility] Administration Tramadol HCl 25 mg 11/18/18 10:00 11/18/18 13:46 Ultram - PO 25 mg Q8H PRN Administration PAIN LEVEL 7 - 10 Ambulatory Orders Escitalopram Oxalate [Lexapro -] 10 mg PO HS 11/16/17 Aspirin Coated [Ecotrin -] 81 mg PO DAILY tablet.ec 11/22/17 Clonazepam [Klonopin] 4 mg PO HS 11/17/18 Diphenhydramine [Benadryl -] 2 tab PO HS 11/17/18 Alprazolam [Xanax] 1 mg PO QID 11/18/18 Current Medications Acetaminophen (Tylenol -) 975 mg PO TID [facility] Last Admin: 11/19/18 06:04 Dose: 975 mg Alprazolam 2 mg/ Alprazolam 1 (mg) 3 mg PO HS PRN PRN Reason: ANXIETY Last Admin: 11/18/18 21:41 Dose: 3 mg Atorvastatin Calcium (Lipitor -) 20 mg PO HS [facility] Last Admin: 11/18/18 21:43 Dose: 20 mg Divalproex Sodium (Depakote *Er* -) 1,500 mg PO [facility] Last Admin: 11/18/18 21:42 Dose: 1,500 mg Enoxaparin Sodium (Lovenox -) 40 mg SQ DAILY [facility] Last Admin: 11/18/18 09:37 Dose: 40 mg Escitalopram Oxalate (Lexapro -) 10 mg PO HS [facility] Last Admin: 11/18/18 21:43 Dose: 10 mg Lorazepam (Ativan -) 3 mg PO HS [facility] Last Admin: 11/18/18 21:43 Dose: 3 mg Melatonin (Melatonin) 10 mg PO HS [facility] Last Admin: 11/18/18 21:45 Dose: 10 mg Nicotine (Nicoderm Patch -) 14 mg TD DAILY [facility] Last Admin: 11/18/18 09:37 Dose: 14 mg Tramadol HCl (Ultram -) 25 mg PO Q8H PRN PRN Reason: PAIN LEVEL 7 - 10 Last Admin: 11/18/18 13:46 Dose: 25 mg ASSESSMENT/PLAN: 68M with pmh of HLD, chronic anxiety, CVA(November 2017 w/ R-sided weakness), peripheral neuropathy, prostate Ca s/p RT, RhA, multiple basal cancer removals, chronic anxiety, mood disorder BIBA for fall likely 2/2 to mechanical etiologies , less likely neurogenic or cardiogenic. # chronic Right hip pain -XR hip(11/17) -- neg - CT degenerative joint dx grade 4 per ortho - Ortho consult- Dr Holden -Cont tramadol 25 PO Q8H - Ramiro CT ordered per ortho -For transferred to [place] for surgery this Saturday -Ortho requesting surgical clearance and to hold ASA # fall w/o LOC > CTH(11/17) -- neg -Pt now with signif DJD disease on CT -On significant meds at home, incluidng lexapro, klonipin, benadryl and xanax, although pt denies chnage in level of consciousness during falls - NIHSS ~2 - TSH, B12, Folate - urine tox # chronic anxiety - Cont home xanax- appears to be 3mg HS, with 1mg PRN dose on board -klonopin, gabapentin on hold # chronic insomnia - Per Dr Emery, pt now on xanax, 3mg daily, cont - klonopin, -no longer on gabapentin -per pharmacy - melantonin 10mg qPM, home benadryl held # chronic tobacco - cw nicotine patch, patch no longer prescribed in paharmacy DISPO - fu PT evaluation - fu SW consult - likely SNF vs rehab vs home PHYSIOLOGICAL CHEMIST/PT Visit type - Emergency Visit Emergency Visit: Yes ED Registration Date: 11/17/18 Care time: The patient presented to the Emergency Department on the above date and was hospitalized for further evaluation of their emergent condition. - New Patient This patient is new to me today: No - Critical Care Critical Care patient: No - Discharge Referral Referred to [facility] Med P.C.: No ATTENDING PHYSICIAN STATEMENT I saw and evaluated the patient. I reviewed the resident's note and discussed the case with the resident. I agree with the resident's findings and plan as documented. SUBJECTIVE: OBJECTIVE: ASSESSMENT AND PLAN:
[2018-11-19] MEDS: ENOXAPARIN NA (PORCINE) 40 MG/0.4 ML DISP.SYRIN SQ SCH (09:35)
[2018-11-19] MEDS: NICOTINE 14 MG/24 HOURS TOPICAL PATCH TD SCH (09:35)
--- NOTE | 2018-11-19 12:03 | PN ---
Progress Note (short form) - Note Progress Note: Please hold lovenox for 24 hours prior to OR on Saturday morning.
--- NOTE | 2018-11-19 12:09 | CON.CARD ---
Cardiology Consult (text) - Consultation Consultation Note: 68M h/o stroke, HTN, HLD presenting for fall, preop hip surgery. He fell when trying to get up, complained of weakness and hip pain. No loss of consciousness. Has limited functional status due to hip pain, but can climb 40 steps at home, does some walking without chest pain, dyspnea. No edema, orthopnea, dizziness, lightheadedness, palpitations. 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: Peripheral Neuropathy Cardio/Vascular: Yes: HTN Renal/: Yes: Cancer (prostate (s/p RT)) Psych: Yes: Anxiety, Bipolar, Depression Musculoskeletal: Yes: Chronic low back pain (/ spinal stenosis) Rheumatology: Yes: Rheumatoid Arthritis Dermatology: Yes: Basal Cell (-s/p multiple removals) - Past Surgical History Past Surgical History: Yes: Cataract Removal, Hernia Repair (umbilical, inguinal hernia repair) - Alcohol/Substance Use Hx Alcohol Use: No History of Substance Use: reports: None - Smoking History Smoking history: Current every day smoker Have you smoked in the past 12 months: Yes Aproximately how many cigarettes per day: 10 - Social History Usual Living Arrangement: With Spouse ADL: Independent 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 History of Recent Travel: No Home Medications - Allergies Allergies/Adverse Reactions: Allergies Allergy/AdvReac Type Severity Reaction Status Date / Time Penicillins Allergy Verified 11/17/18 16:30 Current Medications Acetaminophen (Tylenol -) 975 mg PO TID [facility] Last Admin: 11/19/18 06:04 Dose: 975 mg Alprazolam 2 mg/ Alprazolam 1 (mg) 3 mg PO HS PRN PRN Reason: ANXIETY Last Admin: 11/18/18 21:41 Dose: 3 mg Atorvastatin Calcium (Lipitor -) 20 mg PO [facility] Last Admin: 11/18/18 21:43 Dose: 20 mg Divalproex Sodium (Depakote *Er* -) 1,500 mg PO [facility] Last Admin: 11/18/18 21:42 Dose: 1,500 mg Enoxaparin Sodium (Lovenox -) 40 mg SQ DAILY [facility] Last Admin: 11/19/18 09:35 Dose: 40 mg Escitalopram Oxalate (Lexapro -) 10 mg PO [facility] Last Admin: 11/18/18 21:43 Dose: 10 mg Lorazepam (Ativan -) 3 mg PO [facility] Last Admin: 11/18/18 21:43 Dose: 3 mg Melatonin (Melatonin) 10 mg PO HS [facility] Last Admin: 11/18/18 21:45 Dose: 10 mg Nicotine (Nicoderm Patch -) 14 mg TD DAILY [facility] Last Admin: 11/19/18 09:35 Dose: 14 mg Tramadol HCl (Ultram -) 25 mg PO Q8H PRN PRN Reason: PAIN LEVEL 7 - 10 Last Admin: 11/18/18 13:46 Dose: 25 mg Family Disease History - Family Disease History Family Disease History: CA: Mother, Other: Daughter (autism) Review of Systems - Review of Systems Constitutional: reports: No Symptoms Eyes: reports: No Symptoms HENT: reports: No Symptoms Neck: reports: No Symptoms Cardiovascular: reports: No Symptoms Respiratory: reports: No Symptoms Gastrointestinal: reports: No Symptoms Genitourinary: reports: No Symptoms Musculoskeletal: reports: No Symptoms Integumentary: reports: No Symptoms Neurological: reports: No Symptoms Endocrine: reports: No Symptoms Hematology/Lymphatic: reports: No Symptoms Psychiatric: reports: No Symptoms Vital Signs Period Temp Pulse Resp BP Sys/Bhandari Pulse Ox Last 24 Hr 97.5 F-98.0 F 56-66 18-20 120-141/74-94 96-96 Constitutional: Yes: Well Nourished, No Distress, Calm Eyes: Yes: Conjunctiva Clear HENT: Yes: Atraumatic, Normocephalic Neck: Yes: Supple Respiratory: Yes: Regular, CTA Bilaterally Gastrointestinal: Yes: Normal Bowel Sounds, Soft Cardiovascular: Yes: Regular Rate and Rhythm JVD: No Heart Sounds: Yes: S1, S2 Edema: No Peripheral Pulses WNL: No Peripheral Pulses: 2+ Left Doralis Pedis, 2+ Right Dorsalis Pedis Integumentary: Yes: WNL Neurological: Yes: Alert, Oriented Psychiatric: Yes: Alert, Oriented Assessment/Plan echo 11/2017 nl LV/RV size and function, nl LA size, mild MR, aortic sclerosis without sig stenosis, E/A reversal carotid dopplers 11/2017 no significant stenosis bilaterally EKG 12/25/17: sinus, RBBB, TWI anteriorly 68M h/o stroke, HTN, HLD presenting for hip surgery Preoperative evaluation, hip surgery - patient is asymptomatic and stable from cardiac perspective, he is at acceptable risk for hip surgery - no further testing prior to OR - holding aspirin perioperatively, restart when clear per surgery Fall - likely mechanical, no loss of consciousness - manage per ortho, primary Stroke - holding aspirin as above, cont statin HTN - stable, not on meds HLD - continue statin
--- NOTE | 2018-11-19 15:12 | PN ---
Progress Note (short form) - Note Progress Note: PULMONARY CONSULTATION DICTATED 11/19/18 IMP S/P FALL FOR R THR S/P CVA LIKELY COPD SMOKER BIPOLAR H/O PROSTATE CA PLAN INHALED BRONCHODILATORS MEDROL X 24HRS CHEST CT DVT PROPHYLAXIS NO PULMONARY CONTRAINDICATION FOR SURGERY AT THIS TIME YEARLY LOW DOSE CHEST CT SMOKING CESSATION COUNSELED DR JAIME Problem List - Problems (1) Anxiety Code(s): F41.9 - ANXIETY DISORDER, UNSPECIFIED (2) Arthritis Code(s): M19.90 - UNSPECIFIED OSTEOARTHRITIS, UNSPECIFIED SITE (3) History of CVA (cerebrovascular accident) Code(s): Z86.73 - PRSNL HX OF TIA (TIA), AND CEREB INFRC W/O RESID DEFICITS (4) Weakness of right lower extremity Code(s): R29.898 - OT SYMPTOMS AND SIGNS INVOLVING THE MUSCULOSKELETAL SYSTEM
[2018-11-19] MEDS ORDERED: ALBUTEROL SO4 2.5/IPRATROPIUM 0.5 INH SOL 3 ML VIAL.NEB. NEB PRN (15:16)
--- NOTE | 2018-11-19 17:00 | CONS ---
DATE OF CONSULTATION: 11/19/2018 PULMONARY CONSULTATION REFERRING PHYSICIAN: Hazel Hassan M.D. HISTORY OF PRESENT ILLNESS: The patient is a 68-year-old white male with a past medical history of CVA in 2018, hypertension, prostate CA, is having RT. Longstanding history of tobacco use, 1 pack per day for greater than 50 years, still smoking admitted to status post fall. The patient had been having multiple falls for the past few weeks, increasing over the past 3 days. On the day of admission he was unable to pick himself up after a fall. He was brought to the emergency room with the above. In the ER, he had x-rays performed which revealed marked degenerative arthritic changes in the hip joint, narrowing joint spaces. The patient is scheduled to undergo a Ramiro THR. The patient denies any history of shortness of breath, chronic cough, hemoptysis. He denies any fevers, weight loss, or night sweats. 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 There is no history of recent travel. There is no history of DVT or PE in the past. PAST MEDICAL HISTORY: Again includes history of CVA in 2018, hyperlipidemia, history of prostate CA and bipolar, and rheumatoid arthritis on basal cell status post multiple removals. REVIEW OF SYSTEMS: No orthopnea. No PND. No chest pain. No palpitations. No shortness of breath. No hemoptysis. No abdominal pain, weight loss or night sweats. CURRENT MEDICATIONS: Include Tylenol, Lovenox, Depakote, Lexapro, NicoDerm, alprazolam, Ativan, Ultram, and melatonin. PHYSICAL EXAMINATION: GENERAL: The patient is a well-developed, well-nourished male, awake, alert, in no acute distress. He is afebrile. VITAL SIGNS: Blood pressure 120/74, respiratory rate 20, O2 saturation is 96% on room air. HEENT: Normocephalic, atraumatic. NECK: Supple. HEART: Regular S1, S2. CHEST: few wheezes ABDOMEN: Soft, bowel sounds positive. EXTREMITIES: No cyanosis, edema. LABORATORY: WBC 8.3, hemoglobin 12, hematocrit 35.5, with a platelet count of 222,000. BUN 19, creatinine 1.2. Chest x-ray reveals prominent mediastinum and increased markings bilaterally. IMPRESSION: 1. Status post multiple falls, for right total hip replacement. 2. Status post cerebrovascular accident. 3. Bipolar. 4. History of prostate carcinoma. 5. Smoker, likely underlying chronic obstructive pulmonary disease. PLAN: Inhaled bronchodilators. Also would administer albuterol 1 unit dose via nebulizer 1 hour prior to surgery, then q.4 hours postoperative p.r.n. Solumedrol 40 Q 6 X 24HRS Obtain chest CT preoperative. DVT prophylaxis, incentive spirometer postoperative. PAOLA JAIME M.D. [id number] MTDD
[2018-11-19] MEDS: methylPREDNISolone NA SUCC 40 MG/1 ML VIAL IVPUSH SCH ×2 (18:42→22:28)
--- NOTE | 2018-11-19 19:04 | PN ---
Teaching Attending Note Name of Resident: Sonya Mathias ATTENDING PHYSICIAN STATEMENT I saw and evaluated the patient. I reviewed the resident's note and discussed the case with the resident. I agree with the resident's findings and plan as documented. SUBJECTIVE: Mr Garber says he is doing well today. No cp, sob, n/v. OBJECTIVE: Last Vital Signs Temp Pulse Resp BP Pulse Ox 36.4 C 62 20 127/83 96 11/19/18 14:00 11/19/18 14:00 11/19/18 14:00 11/19/18 14:00 11/19/18 09:00 Gen: nad Pulm: ctab w/o w/r/r CV: rrr w/o m/r/g Abd: +bs, s/nt/nd Ext: no c/c/e CBC, BMP 11/18/18 05:49 11/18/18 05:49 ASSESSMENT AND PLAN: Problem List - Problems (1) Osteoarthritis Assessment/Plan: -appreciate orthopedic assistance -planning for transfer to [place] for repair -cleared by pulmonary and cardiology -medically stable for surgical intervention Code(s): M19.90 - UNSPECIFIED OSTEOARTHRITIS, UNSPECIFIED SITE Qualifiers: Osteoarthritis location: hip Osteoarthritis type: primary Laterality: right Qualified Code(s): M16.11 - Unilateral primary osteoarthritis, right hip (2) Falls frequently Assessment/Plan: -as above Code(s): R29.6 - REPEATED FALLS (3) Anxiety Assessment/Plan: -continue xanax Code(s): F41.9 - ANXIETY DISORDER, UNSPECIFIED (4) Depression Assessment/Plan: -continue lexapro Code(s): F32.9 - MAJOR DEPRESSIVE DISORDER, SINGLE EPISODE, UNSPECIFIED (5) HLD (hyperlipidemia) Assessment/Plan: -continue lipitor Code(s): E78.5 - HYPERLIPIDEMIA, UNSPECIFIED (6) History of CVA (cerebrovascular accident) Code(s): Z86.73 - PRSNL HX OF TIA (TIA), AND CEREB INFRC W/O RESID DEFICITS
[2018-11-19] MEDS: MELATONIN 5 MG TABLETS PO SCH (22:30)
[2018-11-19] MEDS: ESCITALOPRAM OXALATE 20 MG TABLET (FP) PO SCH (22:30)
[2018-11-19] MEDS: ATORVASTATIN CA 20 MG TABLET (FP) PO SCH (22:30)
[2018-11-19] MEDS: DIVALPROEX NA *ER* EXTEND REL 500 MG TABLET.SA (FP) PO SCH (22:31)
[2018-11-19] MEDS: LORazepam 1 MG TABLET PO SCH (22:31)
[2018-11-19] MEDS ORDERED: ALPRAZolam 2 MG TABLET ONE (22:39)
[2018-11-19] MEDS ORDERED: ALPRAZolam 0.25 MG TABLET ONE (22:40)
[2018-11-19] MEDS: ALPRAZOLAM PO PRN (22:41)
[2018-11-20] MEDS: methylPREDNISolone NA SUCC 40 MG/1 ML VIAL IVPUSH SCH ×3 (03:22→15:02)
[2018-11-20] MEDS: ACETAMINOPHEN 325 MG TABLET (FP) PO SCH ×3 (06:32→21:36)
--- NOTE | 2018-11-20 08:28 | PN ---
Progress Note (short form) - Note Progress Note: Await CAT Chest report and hopefully transfer to [facility] for right hip replacement on Saturday. Patient should be on Alprazolam 3mg each nite but NO Lorazepam as ordered.
--- NOTE | 2018-11-20 09:08 | PN ---
Physical Exam: SUBJECTIVE: Patient seen and examined. No chest pain, no SOB. Still has pain in R hip. Tolerating food. For transfer today to [place] for Sx OBJECTIVE: Vital Signs Period Temp Pulse Resp BP Sys/Bhandari Pulse Ox Last 24 Hr 97.4 F-97.9 F 62-77 20-20 127-155/76-95 97 GENERAL: The patient is awake, alert, and fully oriented, in no acute distress. LUNGS: Breath sounds equal, clear to auscultation bilaterally HEART: Regular rate and rhythm, S1, S2 ABDOMEN: Soft, nontender, nondistended, normoactive bowel sounds EXTREMITIES: R hip without erythema or swelling, Able to flex hip and knees b/ l. Muscle strength 5/5 globally. No lateralizing signs. 2+ pulses, warm, well- perfused, no edema. NEUROLOGICAL: Cranial nerves II through XII grossly intact. Normal speech, gait not observed. Active Medications Generic Name Dose Route Start Last Admin Trade Name Freq PRN Reason Stop Dose Admin Acetaminophen 975 mg 11/18/18 14:00 11/20/18 06:32 Tylenol - PO 975 mg TID [facility] Administration Albuterol/Ipratropium 1 amp 11/19/18 15:16 Duoneb - NEB Q4H PRN SHORTNESS OF BREATH Alprazolam 2 mg/ Alprazolam 1 3 mg 11/18/18 22:00 11/19/18 22:41 mg PO 3 mg HS PRN Administration ANXIETY Atorvastatin Calcium 20 mg 11/17/18 22:00 11/19/18 22:30 Lipitor - PO 20 mg HS [facility] Administration Divalproex Sodium 1,500 mg 11/17/18 22:00 11/19/18 22:31 Depakote *Er* - PO 1,500 mg HS [facility] Administration Enoxaparin Sodium 40 mg 11/18/18 10:00 11/19/18 09:35 Lovenox - SQ 40 mg DAILY [facility] Administration Escitalopram Oxalate 10 mg 11/17/18 22:00 11/19/18 22:30 Lexapro - PO 10 mg HS [facility] Administration Lorazepam 3 mg 11/18/18 22:00 11/19/18 22:31 Ativan - PO 3 mg HS [facility] Administration Melatonin 10 mg 11/17/18 22:00 11/19/18 22:30 Melatonin PO 10 mg HS [facility] Administration Methylprednisolone Sodium Succinate 40 mg 11/19/18 18:30 11/20/18 03:22 Solu-Medrol - IVPUSH 11/20/18 18:00 40 mg Q6H-IV [facility] Administration Nicotine 14 mg 11/17/18 20:45 11/19/18 09:35 Nicoderm Patch - TD 14 mg DAILY [facility] Administration Tramadol HCl 25 mg 11/18/18 10:00 11/18/18 13:46 Ultram - PO 25 mg Q8H PRN Administration PAIN LEVEL 7 - 10 Ambulatory Orders Escitalopram Oxalate [Lexapro -] 10 mg PO HS 11/16/17 Aspirin Coated [Ecotrin -] 81 mg PO DAILY tablet.ec 11/22/17 Clonazepam [Klonopin] 4 mg PO 11/17/18 Diphenhydramine [Benadryl -] 2 tab PO 11/17/18 Alprazolam [Xanax] 1 mg PO QID 11/18/18 Current Medications Acetaminophen (Tylenol -) 975 mg PO TID [facility] Last Admin: 11/20/18 06:32 Dose: 975 mg Albuterol/Ipratropium (Duoneb -) 1 amp NEB Q4H PRN PRN Reason: SHORTNESS OF BREATH Alprazolam 2 mg/ Alprazolam 1 (mg) 3 mg PO HS PRN PRN Reason: ANXIETY Last Admin: 11/19/18 22:41 Dose: 3 mg Atorvastatin Calcium (Lipitor -) [address] [facility] Last Admin: 11/19/18 22:30 Dose: 20 mg Divalproex Sodium (Depakote *Er* -) 1,[address] [facility] Last Admin: 11/19/18 22:31 Dose: 1,500 mg Enoxaparin Sodium (Lovenox -) 40 mg SQ DAILY [facility] Last Admin: 11/19/18 09:35 Dose: 40 mg Escitalopram Oxalate (Lexapro -) [address] [facility] Last Admin: 11/19/18 22:30 Dose: 10 mg Melatonin (Melatonin) [address] [facility] Last Admin: 11/19/18 22:30 Dose: 10 mg Methylprednisolone Sodium Succinate (Solu-Medrol -) 40 mg IVPUSH Q6H-IV [facility] Stop: 11/20/18 18:00 Last Admin: 11/20/18 03:22 Dose: 40 mg Nicotine (Nicoderm Patch -) 14 mg TD DAILY [facility] Last Admin: 11/19/18 09:35 Dose: 14 mg Tramadol HCl (Ultram -) 25 mg PO Q8H PRN PRN Reason: PAIN LEVEL 7 - 10 Last Admin: 11/18/18 13:46 Dose: 25 mg ASSESSMENT/PLAN: 68M with pmh of HLD, chronic anxiety, CVA(November 2017 w/ R-sided weakness), peripheral neuropathy, prostate Ca s/p RT, RhA, multiple basal cancer removals, chronic anxiety, mood disorder BIBA for fall likely 2/2 to mechanical etiologies , less likely neurogenic or cardiogenic. # chronic Right hip pain -XR hip(11/17) -- neg - CT degenerative joint dx grade 4 per ortho - Ortho consult- Dr Holden -Cont tramadol 25 PO Q8H - Ramiro CT ordered per ortho -For transferred to [place] for surgery this Tuesday 11/21 -Ortho requesting surgical clearance and to hold ASA # fall w/o LOC > CTH(11/17) -- neg -Pt now with signif DJD disease on CT -On significant meds at home, incluidng lexapro, klonipin, benadryl and xanax, although pt denies chnage in level of consciousness during falls - NIHSS ~2 -unlikely TIA/stroke more likely mechanical # chronic anxiety - Cont home xanax- appears to be 3mg HS, with 1mg PRN dose on board -klonopin, gabapentin on hold -Cont escitalopram # chronic insomnia - Per Dr Emery, pt now on xanax, 3mg daily, cont -Per Dr Emery, lorazepam dcd - klonopin on hold -no longer on gabapentin -per pharmacy - melantonin 10mg qPM, home benadryl held # chronic tobacco - cw nicotine patch, patch no longer prescribed in pharmacy #Lovenox dose given in am and held for sx on Saturday DISPO - fu PT evaluation - fu SW consult - likely SNF vs rehab vs home LOSS 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 - New Patient This patient is new to me today: No - Critical Care Critical Care patient: No - Discharge Referral Referred to [facility] No ATTENDING PHYSICIAN STATEMENT I saw and evaluated the patient. I reviewed the resident's note and discussed the case with the resident. I agree with the resident's findings and plan as documented. SUBJECTIVE: OBJECTIVE: ASSESSMENT AND PLAN:
--- NOTE | 2018-11-20 09:11 | PN ---
Progress Note (short form) - Note Progress Note: Ortho Pt seen and examined- preop for right marin thr- awaiting transfer to [place]. Selected Entries 11/20/18 05:00 Temperature 97.7 F Pulse Rate 68 Respiratory 20 Rate Blood Pressure 139/76 Laboratory Tests 11/18/18 05:49 WBC 8.3 Hgb 12.0 Hct 35.5 Plt Count 222 right hip- + ttp, decr rom with IR and ER, nvi a/p Right marin thr for tomorrow at [facility] surgical clearance NPO after midnight transfer to [facility] once cleared d/w Dr. Holden
[2018-11-20] MEDS: NICOTINE 14 MG/24 HOURS TOPICAL PATCH TD SCH (09:22)
[2018-11-20] MEDS: ENOXAPARIN NA (PORCINE) 40 MG/0.4 ML DISP.SYRIN SQ SCH (09:22)
--- NOTE | 2018-11-20 12:11 | PN ---
Progress Note (short form) - Note Progress Note: Breathing feels stable. Some dry cough. CT: Emphysematous changes / retained secretions in the RLL / increase interstitial markings likely chronic in nature Intake & Output 11/17/18 11/18/18 11/19/18 11/20/18 23:59 23:59 23:59 23:59 Intake Total 1000 450 350 Output Total 200 1950 1225 Balance -200 -950 -775 350 Weight 205 lb 6 oz Last Vital Signs Temp Pulse Resp BP Pulse Ox 97.6 F 72 18 129/74 95 11/20/18 09:00 11/20/18 09:00 11/20/18 09:00 11/20/18 09:00 11/20/18 09:00 Active Medications Acetaminophen (Tylenol -) 975 mg PO TID [facility] Last Admin: 11/20/18 06:32 Dose: 975 mg Albuterol/Ipratropium (Duoneb -) 1 amp NEB Q4H PRN PRN Reason: SHORTNESS OF BREATH Alprazolam 2 mg/ Alprazolam 1 (mg) 3 mg PO HS PRN PRN Reason: ANXIETY Last Admin: 11/19/18 22:41 Dose: 3 mg Atorvastatin Calcium (Lipitor -) 20 mg PO HS [facility] Last Admin: 11/19/18 22:30 Dose: 20 mg Divalproex Sodium (Depakote *Er* -) 1,500 mg PO HS [facility] Last Admin: 11/19/18 22:31 Dose: 1,500 mg Enoxaparin Sodium (Lovenox -) 40 mg SQ DAILY [facility] Last Admin: 11/20/18 09:22 Dose: 40 mg Escitalopram Oxalate (Lexapro -) 10 mg PO HS [facility] Last Admin: 11/19/18 22:30 Dose: 10 mg Melatonin (Melatonin) 10 mg PO HS [facility] Last Admin: 11/19/18 22:30 Dose: 10 mg Methylprednisolone Sodium Succinate (Solu-Medrol -) 40 mg IVPUSH Q6H-IV [facility] Stop: 11/20/18 18:00 Last Admin: 11/20/18 09:22 Dose: 40 mg Nicotine (Nicoderm Patch -) 14 mg TD DAILY [facility] Last Admin: 11/20/18 09:22 Dose: 14 mg Tramadol HCl (Ultram -) 25 mg PO Q8H PRN PRN Reason: PAIN LEVEL 7 - 10 Last Admin: 11/18/18 13:46 Dose: 25 mg Constitutional: Yes: Well Nourished, No Distress, Calm Eyes: Yes: Conjunctiva Clear HENT: Yes: Atraumatic, Normocephalic Neck: Yes: Supple Respiratory: Yes: Regular, CTA Bilaterally Gastrointestinal: Yes: Normal Bowel Sounds, Soft Cardiovascular: Yes: Regular Rate and Rhythm JVD: No Heart Sounds: Yes: S1, S2 Edema: No Peripheral Pulses WNL: No Peripheral Pulses: 2+ Left Doralis Pedis, 2+ Right Dorsalis Pedis Integumentary: Yes: WNL Neurological: Yes: Alert, Oriented Psychiatric: Yes: Alert, Oriented Assessment/Plan Problem List - Problems (1) Anxiety Code(s): F41.9 - ANXIETY DISORDER, UNSPECIFIED (2) Arthritis Code(s): M19.90 - UNSPECIFIED OSTEOARTHRITIS, UNSPECIFIED SITE (3) History of CVA (cerebrovascular accident) Code(s): Z86.73 - PRSNL HX OF TIA (TIA), AND CEREB INFRC W/O RESID DEFICITS (4) Weakness of right lower extremity Code(s): R29.898 - OTH SYMPTOMS AND SIGNS INVOLVING THE MUSCULOSKELETAL SYSTEM IMP S/P FALL FOR R THR S/P CVA LIKELY COPD ACTIVE SMOKER BIPOLAR H/O PROSTATE CA PLAN THERE IS NO ACUTE PROCESS NOTED ON CT; OFFICIAL READ IS PENDING DVT PROPHYLAXIS NO PULMONARY CONTRAINDICATION FOR SURGERY SMOKING CESSATION COUNSELED CAN USE NEBULIZED BD TX IN THE POST-OP PERIOD DR YANCEY
--- NOTE | 2018-11-20 15:10 | PN ---
Teaching Attending Note Name of Resident: Sonya Mathias ATTENDING PHYSICIAN STATEMENT I saw and evaluated the patient. I reviewed the resident's note and discussed the case with the resident. I agree with the resident's findings and plan as documented. SUBJECTIVE: Mr Garber is without complaint today. Denies cp, sob, n/v. OBJECTIVE: Last Vital Signs Temp Pulse Resp BP Pulse Ox 36.4 C 72 18 129/74 95 11/20/18 09:00 11/20/18 09:00 11/20/18 09:00 11/20/18 09:00 11/20/18 09:00 Gen: nad Pulm: ctab w/o w/r/r CV: rrr w/o m/r/g Abd: +bs, s/nt/nd Ext: no c/c/e CBC, BMP 11/18/18 05:49 11/18/18 05:49 ASSESSMENT AND PLAN: (1) Osteoarthritis Assessment/Plan: -cleared by pulmonary and cardiology for transfer and surgery -stable from a medical standpoint for transfer and surgery -transfer to [place] today Code(s): M19.90 - UNSPECIFIED OSTEOARTHRITIS, UNSPECIFIED SITE Qualifiers: Osteoarthritis location: hip Osteoarthritis type: primary Laterality: right Qualified Code(s): M16.11 - Unilateral primary osteoarthritis, right hip (2) Falls frequently Assessment/Plan: -as above Code(s): R29.6 - REPEATED FALLS (3) Anxiety Assessment/Plan: -continue xanax Code(s): F41.9 - ANXIETY DISORDER, UNSPECIFIED (4) Depression Assessment/Plan: -continue lexapro Code(s): F32.9 - MAJOR DEPRESSIVE DISORDER, SINGLE EPISODE, UNSPECIFIED (5) HLD (hyperlipidemia) Assessment/Plan: -continue lipitor Code(s): E78.5 - HYPERLIPIDEMIA, UNSPECIFIED (6) History of CVA (cerebrovascular accident) Code(s): Z86.73 - PRSNL HX OF TIA (TIA), AND CEREB INFRC W/O RESID DEFICITS Problem List - Problems (1) Osteoarthritis Code(s): M19.90 - UNSPECIFIED OSTEOARTHRITIS, UNSPECIFIED SITE Qualifiers: Osteoarthritis location: hip Osteoarthritis type: primary Laterality: right Qualified Code(s): M16.11 - Unilateral primary osteoarthritis, right hip (2) Falls frequently Code(s): R29.6 - REPEATED FALLS (3) Anxiety Code(s): F41.9 - ANXIETY DISORDER, UNSPECIFIED (4) Depression Code(s): F32.9 - MAJOR DEPRESSIVE DISORDER, SINGLE EPISODE, UNSPECIFIED (5) HLD (hyperlipidemia) Code(s): E78.5 - HYPERLIPIDEMIA, UNSPECIFIED (6) History of CVA (cerebrovascular accident) Code(s): Z86.73 - PRSNL HX OF TIA (TIA), AND CEREB INFRC W/O RESID DEFICITS
[2018-11-20] MEDS: ESCITALOPRAM OXALATE 20 MG TABLET (FP) PO SCH (21:34)
[2018-11-20] MEDS: DIVALPROEX NA *ER* EXTEND REL 500 MG TABLET.SA (FP) PO SCH (21:34)
[2018-11-20] MEDS: ATORVASTATIN CA 20 MG TABLET (FP) PO SCH (21:35)
[2018-11-20] MEDS: MELATONIN 5 MG TABLETS PO SCH (21:36)
[2018-11-20] MEDS: ALPRAZolam 1 MG TABLET PO PRN (21:59)
[2018-11-21] MEDS: ACETAMINOPHEN 325 MG TABLET (FP) PO SCH (06:41)
[2018-11-21] MEDS ORDERED: oxyCODONE HCL 10 MG SUSTAINED ACTING TABLET PO ONE (07:59)
[2018-11-21] MEDS ORDERED: CEFAZOLIN 2 GM in DEXTROSE 5%-WATER - 50 ML IVPB ONE (07:59)
[2018-11-21] MEDS ORDERED: TRANEXAMIC ACID 1000 MG/10 ML VIAL IVPUSH ONE (07:59)
[2018-11-21] MEDS ORDERED: CELECOXIB 200 MG CAPSULE PO ONE (07:59)
[2018-11-21 08:10] LABS: ALBUMIN 2.9 g/dl (3.4-5.0); BILIRUBIN,TOTAL 0.4 mg/dl (0.2-1); CREATININE 1.1 mg/dl (0.55-1.3); HEMATOCRIT 38.3 % (35.4-49); HEMOGLOBIN 12.9 GM/dl (11.7-16.9); MAGNESIUM 2.1 mg/dL (1.8-2.4); MCH 32.3 pg (25.7-33.7); MCHC 33.8 g/dl (32.0-35.9); MEAN CELL VOLUME 95.5 fl (80-96); MEAN PLT VOLUME 7.6 fl (7.5-11.1); PHOSPHOROUS 3.8 mg/dl (2.5-4.9); PLATELET COUNT 253 K/MM3 (134-434); POTASSIUM 4.4 mmol/L (3.5-5.1); RBC 4.01 M/mm3 (4.00-5.60); RDW 12.8 % (11.9-15.9); TOT PROT 6.6 g/dl (6.4-8.2); WHITE BLOOD COUNT 22.5 K/mm3 (4.0-10.8)
[2018-11-21 09:19] LABS: BASO % 0.3 % (0-2.0); EOS % 0.6 % (0-4.5); HEMATOCRIT 37.7 % (35.4-49); HEMOGLOBIN 12.9 GM/dl (11.7-16.9); LYMPH % 24.1 % (8-40); MCH 32.4 pg (25.7-33.7); MCHC 34.1 g/dl (32.0-35.9); MEAN CELL VOLUME 94.9 fl (80-96); MEAN PLT VOLUME 7.5 fl (7.5-11.1); MONO % 7.6 % (3.8-10.2); NEUT % 67.4 % (42.8-82.8); PLATELET COUNT 248 K/MM3 (134-434); RBC 3.98 M/mm3 (4.00-5.60); RDW 12.8 % (11.9-15.9); WHITE BLOOD COUNT 20.9 K/mm3 (4.0-10.8)
--- NOTE | 2018-11-21 10:09 | PN ---
Progress Note, Physician History of Present Illness: pulmonary alert,no distress,-cp,-sob,-cough - Current Medication List Current Medications: Active Medications Acetaminophen (Tylenol -) 975 mg PO TID [facility] Last Admin: 11/21/18 06:41 Dose: Not Given Albuterol/Ipratropium (Duoneb -) 1 amp NEB Q4H PRN PRN Reason: SHORTNESS OF BREATH Alprazolam (Xanax) 3 mg PO HS PRN PRN Reason: ANXIETY Last Admin: 11/20/18 21:59 Dose: 3 mg Atorvastatin Calcium (Lipitor -) 20 mg PO HS [facility] Last Admin: 11/20/18 21:35 Dose: 20 mg Celecoxib (Celebrex -) 200 mg PO ASU-PREOP ONE Stop: 11/21/18 08:00 Divalproex Sodium (Depakote *Er* -) 1,500 mg PO HS [facility] Last Admin: 11/20/18 21:34 Dose: 1,500 mg Enoxaparin Sodium (Lovenox -) 40 mg SQ DAILY [facility] Last Admin: 11/20/18 09:22 Dose: 40 mg Escitalopram Oxalate (Lexapro -) 10 mg PO HS [facility] Last Admin: 11/20/18 21:34 Dose: 10 mg Cefazolin Sodium 2 gm/ (Dextrose) 50 mls @ 100 mls/hr IVPB ANES-PREOP ONE Stop: 11/21/18 08:28 Melatonin (Melatonin) 10 mg PO HS [facility] Last Admin: 11/20/18 21:36 Dose: 10 mg Nicotine (Nicoderm Patch -) 14 mg TD DAILY [facility] Last Admin: 11/20/18 09:22 Dose: 14 mg Oxycodone HCl (Oxycontin -) 10 mg PO ASU-PREOP ONE Stop: 11/21/18 08:00 Tramadol HCl (Ultram -) 25 mg PO Q8H PRN PRN Reason: PAIN LEVEL 7 - 10 Last Admin: 11/18/18 13:46 Dose: 25 mg Tranexamic Acid (Tranexamic Acid -) 1,000 mg IVPUSH ONCE ONE Stop: 11/21/18 08:00 - Objective Vital Signs: Vital Signs Temperature 97.7 F 11/21/18 09:50 Pulse Rate 66 11/21/18 09:50 Respiratory Rate 18 11/21/18 09:50 Blood Pressure 144/82 11/21/18 09:50 O2 Sat by Pulse Oximetry (%) 94 L 11/21/18 09:50 Constitutional: Yes: Well Nourished, Calm Eyes: Yes: WNL HENT: Yes: WNL Neck: Yes: WNL Cardiovascular: Yes: Regular Rate and Rhythm, S1, S2 Respiratory: Yes: CTA Bilaterally Gastrointestinal: Yes: Normal Bowel Sounds, Soft Extremities: Yes: WNL Edema: No Labs: CBC, BMP 11/21/18 08:56 11/21/18 07:21 INR, PTT INR 1.05 (0.83-1.09) 11/17/18 17:41 Problem List - Problems (1) Anxiety Code(s): F41.9 - ANXIETY DISORDER, UNSPECIFIED (2) Arthritis Code(s): M19.90 - UNSPECIFIED OSTEOARTHRITIS, UNSPECIFIED SITE (3) History of CVA (cerebrovascular accident) Code(s): Z86.73 - PRSNL HX OF TIA (TIA), AND CEREB INFRC W/O RESID DEFICITS (4) Weakness of right lower extremity Code(s): R29.898 - OT SYMPTOMS AND SIGNS INVOLVING THE MUSCULOSKELETAL SYSTEM Assessment/Plan IMP S/P FALL FOR R THR S/P CVA LIKELY COPD SMOKER BIPOLAR H/O PROSTATE CA PLAN INHALED BRONCHODILATORS DVT PROPHYLAXIS NO PULMONARY CONTRAINDICATION FOR SURGERY AT THIS TIME YEARLY LOW DOSE CHEST CT INCENTIVE SPIROMETRY POST-OP SMOKING CESSATION COUNSELED DR JAIME Problem List - Problems (1) Anxiety Code(s): F41.9 - ANXIETY DISORDER, UNSPECIFIED (2) Arthritis Code(s): M19.90 - UNSPECIFIED OSTEOARTHRITIS, UNSPECIFIED SITE (3) History of CVA (cerebrovascular accident) Code(s): Z86.73 - PRSNL HX OF TIA (TIA), AND CEREB INFRC W/O RESID DEFICITS (4) Weakness of right lower extremity Code(s): R29.898 - OTH SYMPTOMS AND SIGNS INVOLVING THE MUSCULOSKELETAL SYSTEM
[2018-11-21] MEDS: NICOTINE 14 MG/24 HOURS TOPICAL PATCH TD SCH (10:57)
--- NOTE | 2018-11-21 11:27 | PN ---
Progress Note (short form) - Note Progress Note: ID CONSULT DICTATED PROBABLE STEROID-INDUCED LEUKOCYTOSIS NO CLEAR INFECTIOUS FOCUS OBTAIN BC FOLLOW UP CBC OBSERVE OFF ANTIBIOTICS
--- NOTE | 2018-11-21 15:45 | PN ---
Physical Exam: SUBJECTIVE: Patient seen and examined at bedside. OBJECTIVE: Vital Signs Period Temp Pulse Resp BP Sys/Bhandari Pulse Ox Last 24 Hr 97.5 F-98.4 F 51-67 18-20 109-157/55-84 93-96 GENERAL: The patient is awake, alert, and fully oriented, in no acute distress. LUNGS: Breath sounds equal, clear to auscultation bilaterally, no wheezes, no crackles, no accessory muscle use. HEART: Regular rate and rhythm, S1, S2 ABDOMEN: Soft, nontender, nondistended EXTREMITIES: 2+ pulses, warm, well-perfused, no edema. NEUROLOGICAL: Cranial nerves II through XII grossly intact. Normal speech, observed unsteady gait Laboratory Results - last 24 hr 11/21/18 11/21/18 11/21/18 07:21 07:21 08:56 WBC 22.5 H 20.9 H RBC 4.01 3.98 L Hgb 12.9 12.9 Hct 38.3 37.7 MCV 95.5 94.9 MCH 32.3 32.4 MCHC 33.8 34.1 RDW 12.8 12.8 Plt Count 253 248 MPV 7.6 7.5 Absolute Neuts (auto) 15.3 14.1 Neutrophils % [place] Measurer 67.4 Lymphocytes % [place] 24.1 Monocytes % [place] 7.6 Eosinophils % [place] 0.6 Basophils % [place] Measurer 0.3 Sodium 137 Potassium 4.4 Chloride 105 Carbon Dioxide 24 Anion Gap 8 BUN 23.0 H Creatinine 1.1 Est GFR (CKD-EPI)AfAm 78.97 Est GFR (CKD-EPI)NonAf 68.13 Random Glucose 98 Calcium 9.0 Phosphorus 3.8 Magnesium 2.1 Total Bilirubin 0.4 AST 22 ALT 19 Alkaline Phosphatase 96 Total Protein 6.6 Albumin 2.9 L Active Medications Generic Name Dose Route Start Last Admin Trade Name Freq PRN Reason Stop Dose Admin Acetaminophen 975 mg 11/18/18 14:00 11/21/18 06:41 Tylenol - PO Not Given TID [facility] Albuterol/Ipratropium 1 amp 11/19/18 15:16 Duoneb - NEB Q4H PRN SHORTNESS OF BREATH Alprazolam 3 mg 11/20/18 21:49 11/20/18 21:59 Xanax PO 3 mg HS PRN Administration ANXIETY Atorvastatin Calcium 20 mg 11/17/18 22:00 11/20/18 21:35 Lipitor - PO 20 mg HS [facility] Administration Celecoxib 200 mg 11/21/18 07:59 Celebrex - PO 11/21/18 08:00 ASU-PREOP ONE Divalproex Sodium 1,500 mg 11/17/18 22:00 11/20/18 21:34 Depakote *Er* - PO 1,500 mg HS [facility] Administration Enoxaparin Sodium 40 mg 11/18/18 10:00 11/20/18 09:22 Lovenox - SQ 40 mg DAILY [facility] Administration Escitalopram Oxalate 10 mg 11/17/18 22:00 11/20/18 21:34 Lexapro - PO 10 mg HS [facility] Administration Cefazolin Sodium 2 gm/ 50 mls @ 100 mls/hr 11/21/18 07:59 Dextrose IVPB 11/21/18 08:28 ANES-PREOP ONE Melatonin 10 mg 11/17/18 22:00 11/20/18 21:36 Melatonin PO 10 mg HS [facility] Administration Nicotine 14 mg 11/17/18 20:45 11/21/18 10:57 Nicoderm Patch - TD 14 mg DAILY [facility] Administration Oxycodone HCl 10 mg 11/21/18 07:59 Oxycontin - PO 11/21/18 08:00 ASU-PREOP ONE Tramadol HCl 25 mg 11/18/18 10:00 11/18/18 13:46 Ultram - PO 25 mg Q8H PRN Administration PAIN LEVEL 7 - 10 Tranexamic Acid 1,000 mg 11/21/18 07:59 Tranexamic Acid - IVPUSH 11/21/18 08:00 ONCE ONE ASSESSMENT/PLAN 68 year-old male with a PMH significant for HTN, HLD, CVA 11/2017, prostate cancer s/p RT, RA, and chronic anxiety. Patient was admitted after approximately 8 falls in 2 days, the result of RLE weakness secondary to CVA and severe right hip degenerative disease. Severe right hip degenerative disease --was seen and evaluated by ortho and was scheduled for a Ramiro right hip replacement today; postponed due to leukocytosis --tylenol, tramadol for pain Leukocytosis --this morning WBC 22.5k, repeat 20.9k, likely related to IV solumedrol given on 11/19-11/20 --cultures ordered, monitor fever curve, trend WBC --observe off antibiotics COPD Interstitial lung disease --chronic findings on chest CT; nebs should be administered perioperatively Hypertension --BP stable, not on meds Hyperlipidemia --continue Lipitor CVA --residual right-sided weakness --resume ASA Prostate cancer --stable Anxiety --continue Lexapro, depakote, alprazolam FEN Fluids: PO intake adequate Electrolytes: replete as indicated Nutrition: low sodium DVT prophylaxis: subq lovenox Physical therapy Dispo: continues to require inpatient care. Full code. Visit type - Emergency Visit Emergency Visit: Yes ED Registration Date: 11/17/18 Care time: The patient presented to the Emergency Department on the above date and was hospitalized for further evaluation of their emergent condition. - New Patient This patient is new to me today: Yes Date on this admission: 11/21/18 - Critical Care Critical Care patient: No
--- NOTE | 2018-11-21 16:27 | CONS ---
DATE OF CONSULTATION: DATE OF DICTATION: 11/21/2018 INFECTIOUS DISEASE CONSULTATION HISTORY OF PRESENT ILLNESS: The patient is a 68-year-old male who was evaluated for leukocytosis. He was admitted to the hospital on November 17, 2018, after recurrent falls at home. The patient was found to have severe osteoarthritis of the hip. He was scheduled for an elective MAKOplasty. He was seen preoperatively by Pulmonology. He was noted to be wheezing and was given doses of Solu-Medrol. White blood cell count today was noted to be 22.5, with a normal differential. Prior to the steroid treatment he had a normal white blood cell count. The patient complains of hip pain. He otherwise is without focal complaint. He has been afebrile. He denies chills. No complaints of chest pain, shortness of breath, cough or sputum production. He denies vomiting or diarrhea. No dysuria or hematuria. No infected skin wounds. PAST MEDICAL HISTORY: Positive for stroke in 2018, hypertension, prostate cancer, rheumatoid arthritis, COPD, bipolar disorder. PAST SURGICAL HISTORY: Status post cataract surgery and hernia repair. ALLERGIES: PENICILLIN. The nature of the PENICILLIN ALLERGY is not known. MEDICATIONS: Lexapro, Ecotrin, Xanax, Neurontin, Klonopin, Depakote, Zocor. SOCIAL HISTORY: Positive for tobacco use. He lives in the community. REVIEW OF SYSTEMS: Neurologic: No loss of consciousness, seizure activity, focal weakness. Positive history of stroke. Cardiac: Negative for chest pain or palpitations. Respiratory: As per HPI. Gastrointestinal: Negative for vomiting or diarrhea. Genitourinary: Negative for urinary tract infection. LABORATORY DATA: White count 22.5, neutrophils 68, lymphocytes 24, monocytes 6, hematocrit 38.3, platelet count 253. BUN 23, creatinine 1.1. Urinalysis: Negative leukocyte esterase. Urine culture negative. IMAGING: CAT scan of the chest shows COPD. No focal infiltrate. PHYSICAL EXAMINATION: General: He is awake and alert. He is not acutely toxic appearing. Vital Signs: Temperature 97.7, blood pressure 144/82, pulse 66 and regular, respirations 18 per minute. HEENT: Sclerae anicteric. Cardiac: Heart sounds S1, S2. Lungs: Clear. Abdomen: Soft, nontender. No palpable mass, rebound or rigidity. Extremities: Negative for edema. Negative Homans sign. IMPRESSION: 1. Probable steroid-induced leukocytosis. 2. Severe degenerative joint disease. 3. Chronic obstructive pulmonary disease. 4. Elevated white blood cell count, likely steroid induced. No identifiable infectious focus. PLAN: We will obtain blood cultures and observe off antibiotic therapy. Follow up CBC in the a.m. Thank you for the kind referral. JEFFREY FRENCH M.D. RHEA/[id number]
[2018-11-21 16:41] LABS: PLATELET ESTIMATE ADEQUATE
[2018-11-21] MEDS ORDERED: ACETAMINOPHEN 325 MG TABLET (FP) PO PRN (17:19)
--- NOTE | 2018-11-21 17:19 | PN ---
Progress Note (short form) - Note Progress Note: s: no cp sob palps dizzy Vital Signs Period Temp Pulse Resp BP Sys/Bhandari Pulse Ox Last 24 Hr 97.5 F-98.4 F 51-67 18-20 109-157/55-84 93-96 Constitutional: Yes: Well Nourished, No Distress, Calm Eyes: Yes: Conjunctiva Clear Neck: Yes: Supple Respiratory: Yes: Regular, CTA Bilaterally Gastrointestinal: Yes: Normal Bowel Sounds, Soft Cardiovascular: Yes: Regular Rate and Rhythm JVD: No Heart Sounds: Yes: S1, S2 Edema: No Integumentary: no jaundice diaphoresis Neurological: Yes: Alert, Oriented Psychiatric: Yes: Alert, Oriented Current Medications Generic Name Dose Route Start Last Admin Trade Name Freq PRN Reason Stop Dose Admin Acetaminophen 975 mg 11/18/18 14:00 11/21/18 06:41 Tylenol - PO Not Given TID OSCAR Albuterol/Ipratropium 1 amp 11/19/18 15:16 Duoneb - NEB Q4H PRN SHORTNESS OF BREATH Alprazolam 3 mg 11/20/18 21:49 11/20/18 21:59 Xanax PO 3 mg HS PRN Administration ANXIETY Atorvastatin Calcium 20 mg 11/17/18 22:00 11/20/18 21:35 Lipitor - PO 20 mg HS OSCAR Administration Divalproex Sodium 1,500 mg 11/17/18 22:00 11/20/18 21:34 Depakote *Er* - PO 1,500 mg HS OSCAR Administration Enoxaparin Sodium 40 mg 11/18/18 10:00 11/20/18 09:22 Lovenox - SQ 40 mg DAILY OSCAR Administration Escitalopram Oxalate 10 mg 11/17/18 22:00 11/20/18 21:34 Lexapro - PO 10 mg HS OSCAR Administration Cefazolin Sodium 2 gm/ 50 mls @ 100 mls/hr 11/21/18 07:59 Dextrose IVPB 11/21/18 08:28 ANES-PREOP ONE Melatonin 10 mg 11/17/18 22:00 11/20/18 21:36 Melatonin PO 10 mg HS OSCAR Administration Nicotine 14 mg 11/17/18 20:45 11/21/18 10:57 Nicoderm Patch - TD 14 mg DAILY OSCAR Administration Tramadol HCl 25 mg 11/18/18 10:00 07/09/19 13:46 Ultram - PO 25 mg Q8H PRN Administration PAIN LEVEL 7 - 10 Laboratory Last Values WBC 20.9 K/mm3 (4.0-10.8) H 11/21/18 08:56 RBC 3.98 M/mm3 (4.00-5.60) L 11/21/18 08:56 Hgb 12.9 GM/dl (11.7-16.9) 11/21/18 08:56 Hct 37.7 % (35.4-49) 11/21/18 08:56 MCV 94.9 fl (80-96) 11/21/18 08:56 MCH 32.4 pg (25.7-33.7) 11/21/18 08:56 MCHC 34.1 g/dl (32.0-35.9) 11/21/18 08:56 RDW 12.8 % (11.9-15.9) 11/21/18 08:56 Plt Count 248 K/MM3 (134-434) 11/21/18 08:56 MPV 7.5 fl (7.5-11.1) 11/21/18 08:56 Absolute Neuts (auto) 14.1 K/mm3 11/21/18 08:56 Neutrophils % 67.4 % (42.8-82.8) 11/21/18 08:56 Neutrophils % (Manual) 61.0 % (42.8-82.8) 11/21/18 07:21 Band Neutrophils % 1.0 % (0-10) 11/21/18 07:21 Lymphocytes % 24.1 % (8-40) 11/21/18 08:56 Lymphocytes % (Manual) 28.0 % (8-40) 11/21/18 07:21 Monocytes % 7.6 % (3.8-10.2) 11/21/18 08:56 Monocytes % (Manual) 6 % (3.8-10.2) 11/21/18 07:21 Eosinophils % 0.6 % (0-4.5) 11/21/18 08:56 Basophils % 0.3 % (0-2.0) 11/21/18 08:56 Nucleated RBC % 0 % (0-0) 11/17/18 17:41 Platelet Estimate Adequate 11/21/18 07:21 Platelet Comment Rare giant plts 11/21/18 07:21 PT with INR 12.40 SEC (9.7-13.0) 11/17/18 17:41 INR 1.05 (0.83-1.09) 11/17/18 17:41 PTT (Actin FS) 31.9 SECONDS (25.2-36.5) 11/17/18 17:41 Sodium 137 mmol/L (136-145) 11/21/18 07:21 Potassium 4.4 mmol/L (3.5-5.1) 11/21/18 07:21 Chloride 105 mmol/L (98-107) 11/21/18 07:21 Carbon Dioxide 24 mmol/L (21-32) 11/21/18 07:21 Anion Gap 8 MMOL/L (8-16) 11/21/18 07:21 BUN 23.0 mg/dl (7-18) H 11/21/18 07:21 Creatinine 1.1 mg/dl (0.55-1.3) 11/21/18 07:21 Est GFR (CKD-EPI)AfAm 78.97 11/21/18 07:21 Est GFR (CKD-EPI)NonAf 68.13 11/21/18 07:21 Random Glucose 98 mg/dl (74-106) 11/21/18 07:21 Calcium 9.0 mg/dl (8.5-10) 11/21/18 07:21 Phosphorus 3.8 mg/dl (2.5-4.9) 11/21/18 07:21 Magnesium 2.1 mg/dL (1.8-2.4) 11/21/18 07:21 Total Bilirubin 0.4 mg/dl (0.2-1) 11/21/18 07:21 AST 22 U/L (15-37) 11/21/18 07:21 ALT 19 U/L (13-61) 11/21/18 07:21 Alkaline Phosphatase 96 U/L (45-117) 11/21/18 07:21 Total Protein 6.6 g/dl (6.4-8.2) 11/21/18 07:21 Albumin 2.9 g/dl (3.4-5.0) L 11/21/18 07:21 Vitamin B12 1079 pg/ml (193-986) H 11/18/18 05:49 Serum Folate 26 ng/mL (3.1-17.5) H 11/18/18 05:49 TSH 3.40 uIU/ml (0.358-3.74) D 11/18/18 05:49 Urine Color Yellow 11/17/18 22:38 Urine Appearance Clear 11/17/18 22:38 Urine pH 5.5 (5.0-8.0) 11/17/18 22:38 Ur Specific [place] 1.024 (1.010-1.035) 11/17/18 22:38 Urine Protein Negative (NEGATIVE) 11/17/18 22:38 Urine Glucose (UA) Negative (NEGATIVE) 11/17/18 22:38 Urine Ketones Trace (NEGATIVE) H 11/17/18 22:38 Urine Blood Negative (NEGATIVE) 11/17/18 22:38 Urine Nitrite Negative (NEGATIVE) 11/17/18 22:38 Urine Bilirubin Negative (NEGATIVE) 11/17/18 22:38 Urine Urobilinogen 0.2 mg/dL (0.2-1.0) 11/17/18 22:38 Ur Leukocyte Esterase Negative (NEGATIVE) 11/17/18 22:38 Opiates Screen Negative ng/ml (JJPKTD=954) 11/17/18 22:38 Methadone Screen Negative ng/ml (VIZURC=748) 11/17/18 22:38 Barbiturate Screen Negative ng/ml (MFMCNQ=412) 11/17/18 22:38 Valproic Acid 72.4 ug/ml (50-100) 11/18/18 05:49 Phencyclidine Screen Negative ng/ml (CUTOFF=25) 11/17/18 22:38 Ur Amphetamines Screen Negative ng/ml (LZYRLI=598) 11/17/18 22:38 MDMA (Ecstasy) Screen Negative ng/ml (LKNCTT=458) 11/17/18 22:38 Benzodiazepines Screen Positive ng/ml (XZIRCR=027) A* 11/17/18 22:38 Cocaine Screen Negative ng/ml (KBCAKA=847) 11/17/18 22:38 U Marijuana (THC) Screen Negative ng/ml (CUTOFF=50) 11/17/18 22:38 Blood Type B POSITIVE 11/17/18 21:30 Antibody Screen Negative 11/17/18 21:30 Assessment/Plan echo 11/2017 nl LV/RV size and function, nl LA size, mild MR, aortic sclerosis without sig stenosis, E/A reversal carotid dopplers 11/2017 no significant stenosis bilaterally EKG 12/25/17: sinus, RBBB, TWI anteriorly 68M h/o stroke, HTN, HLD presenting for hip surgery Preoperative evaluation, hip surgery - patient is asymptomatic and stable from cardiac perspective, he is at acceptable risk for hip surgery - no further testing prior to OR - holding aspirin perioperatively, restart when clear per surgery - surgery postponed due to elevated wbc's--ID suspects steroid related Fall - likely mechanical, no loss of consciousness - manage per ortho, primary Stroke - holding aspirin as above, cont statin HTN - stable, not on meds HLD - continue statin
[2018-11-21] MEDS: ASPIRIN COATED 81 MG TABLET.EC PO SCH (18:24)
[2018-11-21] MEDS: MELATONIN 5 MG TABLETS PO SCH (21:03)
[2018-11-21] MEDS: DIVALPROEX NA *ER* EXTEND REL 500 MG TABLET.SA (FP) PO SCH (21:03)
[2018-11-21] MEDS: ESCITALOPRAM OXALATE 20 MG TABLET (FP) PO SCH (21:03)
[2018-11-21] MEDS: ALPRAZolam 1 MG TABLET PO PRN (21:04)
[2018-11-21] MEDS: ATORVASTATIN CA 20 MG TABLET (FP) PO SCH (21:04)
[2018-11-21] MEDS: traMADol HCL 50 MG TABLET PO PRN (23:24)
[2018-11-22 08:42] LABS: BASO % 0.5 % (0-2.0); EOS % 3.7 % (0-4.5); HEMATOCRIT 38.9 % (35.4-49); HEMOGLOBIN 13.2 GM/dl (11.7-16.9); LYMPH % 39.8 % (8-40); MCH 32.6 pg (25.7-33.7); MCHC 33.9 g/dl (32.0-35.9); MEAN PLT VOLUME 7.6 fl (7.5-11.1); MONO % 10.6 % (3.8-10.2); NEUT % 45.4 % (42.8-82.8); PLATELET COUNT 259 K/MM3 (134-434); RBC 4.05 M/mm3 (4.00-5.60); RDW 12.6 % (11.9-15.9); WHITE BLOOD COUNT 11.7 K/mm3 (4.0-10.8)
[2018-11-22 08:46] LABS: ALBUMIN 2.9 g/dl (3.4-5.0); BILIRUBIN,TOTAL 0.6 mg/dl (0.2-1); CALCIUM 8.8 mg/dl (8.5-10); CREATININE 1.1 mg/dl (0.55-1.3); MAGNESIUM 1.9 mg/dL (1.8-2.4); POTASSIUM 4.4 mmol/L (3.5-5.1); TOT PROT 6.3 g/dl (6.4-8.2)
--- NOTE | 2018-11-22 08:49 | PN ---
Physical Exam: SUBJECTIVE: Patient seen and examined at bedside. Pt reports intermittent dry cough, denies cp, sob, palpitations, abdominal pain, N/V/D or urinary symptoms. OBJECTIVE: Vital Signs Period Temp Pulse Resp BP Sys/Bhandari Pulse Ox Last 24 Hr 97.5 F-97.8 F 51-67 18-20 107-146/50-82 94-98 GENERAL: The patient is awake, alert, and fully oriented, in no acute distress. HEAD: Normal with no signs of trauma. EYES: PERRL, extraocular movements intact, sclera anicteric, conjunctiva clear. No ptosis. ENT: Ears normal, nares patent, oropharynx clear without exudates, moist mucous membranes. NECK: Trachea midline, full range of motion, supple. LUNGS: Breath sounds equal, clear to auscultation bilaterally, no wheezes, no crackles, no accessory muscle use. HEART: Regular rate and rhythm, S1, S2 without murmur, rub or gallop. ABDOMEN: Soft, non-tender, non-distended, normoactive bowel sounds, no guarding , no rebound, no hepatosplenomegaly, no masses. EXTREMITIES: 2+ pulses, warm, well-perfused, no edema, RT leg weakness NEUROLOGICAL: Cranial nerves II through XII grossly intact. Normal speech, gait not observed. PSYCH: Normal mood, normal affect. SKIN: Warm, dry, normal turgor, no rashes or lesions noted Laboratory Results - last 24 hr 11/21/18 11/21/18 07:21 08:56 WBC 20.9 H RBC 3.98 L Hgb 12.9 Hct 37.7 MCV 94.9 MCH 32.4 MCHC 34.1 RDW 12.8 Plt Count 248 MPV 7.5 Absolute Neuts (auto) 14.1 Neutrophils % Turn Out Worker 67.4 Neutrophils % (Manual) 61.0 Band Neutrophils % 1.0 Lymphocytes % [employer] Out Worker 24.1 Lymphocytes % (Manual) 28.0 Monocytes % Turn Out Worker 7.6 Monocytes % (Manual) 6 Eosinophils % Turn Out Worker 0.6 Basophils % [employer] Out Worker 0.3 Platelet Estimate Adequate Platelet Comment Rare giant plts Active Medications Generic Name Dose Route Start Last Admin Trade Name Freq PRN Reason Stop Dose Admin Acetaminophen 650 mg 11/21/18 17:19 Tylenol - PO Q6H PRN PAIN LEVEL 1-5 Albuterol/Ipratropium 1 amp 11/19/18 15:16 Duoneb - NEB Q4H PRN SHORTNESS OF BREATH Alprazolam 3 mg 11/20/18 21:49 11/21/18 21:04 Xanax PO 3 mg HS PRN Administration ANXIETY Aspirin 81 mg 11/21/18 17:30 11/21/18 18:24 Ecotrin - PO 81 mg DAILY OSCAR Administration Atorvastatin Calcium 20 mg 11/17/18 22:00 11/21/18 21:04 Lipitor - PO 20 mg HS OSCAR Administration Divalproex Sodium 1,500 mg 11/17/18 22:00 11/21/18 21:03 Depakote *Er* - PO 1,500 mg HS OSCAR Administration Enoxaparin Sodium 40 mg 11/18/18 10:00 11/20/18 09:22 Lovenox - SQ 40 mg DAILY OSCAR Administration Escitalopram Oxalate 10 mg 11/17/18 22:00 11/21/18 21:03 Lexapro - PO 10 mg HS OSCAR Administration Melatonin 10 mg 11/17/18 22:00 11/21/18 21:03 Melatonin PO 10 mg HS OSCAR Administration Nicotine 14 mg 11/17/18 20:45 11/21/18 10:57 Nicoderm Patch - TD 14 mg DAILY OSCAR Administration Tramadol HCl 25 mg 11/18/18 10:00 11/21/18 23:24 Ultram - PO 25 mg Q8H PRN Administration PAIN LEVEL 7 - 10 * Imaging CxR - No acute pathology Cervical CT: DJD, no acute fracture CT Head : No acute intracranial pathology CT pelvis: No acute fracture or dislocation, DJD CT Lower ext: No acute fracture CT Chest: COPD with Interstitial lung disease,no infiltrate ASSESSMENT/PLAN: 68 year-old male with a PMH significant for HTN, HLD, CVA 11/2017, prostate cancer s/p RT, RA, and chronic anxiety. Patient was admitted after approximately 8 falls in 2 days, the result of RLE weakness secondary to CVA and severe right hip degenerative disease. *Severe right hip degenerative disease -pt was evalauted by ortho Dr. Holden -Initial plan was to have Ramiro right hip replacement but postponed due to leukocytosis - will cont on pain meds - PT following *Leukocytosis-likely related to IV Solumedrol given on 11/19-11/20 - WBC trending down 22.5> 20.9> 11.7 - afebrile - BC pending - UA showed no growth - Imaging reviewed, no evidence of acute infection - ID following -will observe off antibiotics *COPD Interstitial lung disease -chronic findings on chest CT; nebs should be administered perioperatively - pul cleared for sx *Hypertension -BP stable, not on meds - will monitor BP closely *Hyperlipidemia -continue Lipitor * Hx of CVA -residual right-sided weakness -resume ASA and Statin *Prostate cancer -stable *Anxiety- calm - will continue on home dose Clonazepam, Lexapro, Depakote and Alprazolam * Smoking - will cont on Nicotine patch - smoking cessation counselling done FEN Fluids: PO intake adequate Electrolytes: replete as indicated Nutrition: low sodium DVT prophylaxis: subq Lovenox Physical therapy Dispo: continues to require inpatient care, discharge planning pending. Code status:Full code. Visit type - Emergency Visit Emergency Visit: Yes ED Registration Date: 11/17/18 Care time: The patient presented to the Emergency Department on the above date and was hospitalized for further evaluation of their emergent condition. - New Patient This patient is new to me today: Yes Date on this admission: 11/22/18 - Critical Care Critical Care patient: No
[2018-11-22] MEDS: ASPIRIN COATED 81 MG TABLET.EC PO SCH (09:29)
[2018-11-22] MEDS: traMADol HCL 50 MG TABLET PO PRN (09:30)
[2018-11-22] MEDS: NICOTINE 14 MG/24 HOURS TOPICAL PATCH TD SCH (09:55)
--- NOTE | 2018-11-22 16:21 | PN ---
Progress Note (short form) - Note Progress Note: PULMONARY ALERT/NO COMPLAINTS VSS/AFEBRILE Constitutional: Yes: Well Nourished, Calm Eyes: Yes: WNL HENT: Yes: WNL Neck: Yes: WNL Cardiovascular: Yes: Regular Rate and Rhythm, S1, S2 Respiratory: Yes: CTA Bilaterally Gastrointestinal: Yes: Normal Bowel Sounds, Soft Extremities: Yes: WNL Edema: No Labs: NOTED IMP S/P FALL FOR R THR S/P CVA LIKELY COPD SMOKER BIPOLAR H/O PROSTATE CA PLAN INHALED BRONCHODILATORS DVT PROPHYLAXIS NO PULMONARY CONTRAINDICATION FOR SURGERY AT THIS TIME YEARLY LOW DOSE CHEST CT INCENTIVE SPIROMETRY POST-OP SMOKING CESSATION COUNSELED Benjamin MAJOR MD
[2018-11-22] MEDS: DIVALPROEX NA *ER* EXTEND REL 500 MG TABLET.SA (FP) PO SCH (21:29)
[2018-11-22] MEDS: ESCITALOPRAM OXALATE 20 MG TABLET (FP) PO SCH (21:29)
[2018-11-22] MEDS: clonazePAM 2 MG TABLET PO SCH (21:30)
[2018-11-22] MEDS: MELATONIN 5 MG TABLETS PO SCH (21:30)
[2018-11-22] MEDS: ATORVASTATIN CA 20 MG TABLET (FP) PO SCH (21:30)
[2018-11-22] MEDS: ALPRAZolam 1 MG TABLET PO PRN (21:34)
--- NOTE | 2018-11-23 08:38 | PN ---
Physical Exam: SUBJECTIVE: Patient seen and examined at bedside, reports slept well last night without any complains. OBJECTIVE: Vital Signs Period Temp Pulse Resp BP Sys/Bhandari Pulse Ox Last 24 Hr 97.4 F-97.8 F 45-67 16-19 108-158/65-84 90-97 GENERAL: The patient is awake, alert, and fully oriented, in no acute distress. HEAD: Normal with no signs of trauma. EYES: PERRL, extraocular movements intact, sclera anicteric, conjunctiva clear. No ptosis. ENT: Ears normal, nares patent, oropharynx clear without exudates, moist mucous membranes. NECK: Trachea midline, full range of motion, supple. LUNGS: Breath sounds equal, clear to auscultation bilaterally, no wheezes, no crackles, no accessory muscle use. HEART: Regular rate and rhythm, S1, S2 without murmur, rub or gallop. ABDOMEN: Soft, nontender, nondistended, normoactive bowel sounds, no guarding, no rebound, no hepatosplenomegaly, no masses. EXTREMITIES: 2+ pulses, warm, well-perfused, no edema, Rt leg weakness NEUROLOGICAL: Cranial nerves II through XII grossly intact. Normal speech, gait not observed. PSYCH: Normal mood, normal affect. SKIN: Warm, dry, normal turgor, no rashes or lesions noted Laboratory Results - last 24 hr 11/22/18 11/22/18 07:55 07:55 WBC 11.7 H RBC 4.05 Hgb 13.2 Hct 38.9 MCV 96.0 MCH 32.6 MCHC 33.9 RDW 12.6 Plt Count 259 MPV 7.6 Absolute Neuts (auto) 5.3 Neutrophils % 45.4 D Lymphocytes % 39.8 D Monocytes % 10.6 H Eosinophils % 3.7 D Basophils % 0.5 Sodium 139 Potassium 4.4 Chloride 106 Carbon Dioxide 24 Anion Gap 9 BUN 31.0 H Creatinine 1.1 Est GFR (CKD-EPI)AfAm 78.97 Est GFR (CKD-EPI)NonAf 68.13 Random Glucose 92 Calcium 8.8 Magnesium 1.9 Total Bilirubin 0.6 AST 29 ALT 24 Alkaline Phosphatase 96 Total Protein 6.3 L Albumin 2.9 L Active Medications Generic Name Dose Route Start Last Admin Trade Name Freq PRN Reason Stop Dose Admin Acetaminophen 650 mg 11/21/18 17:19 11/22/18 09:30 Tylenol - PO 650 mg Q6H PRN Administration PAIN LEVEL 1-5 Albuterol/Ipratropium 1 amp 11/19/18 15:16 Duoneb - NEB Q4H PRN SHORTNESS OF BREATH Alprazolam 3 mg 11/20/18 21:49 11/22/18 21:34 Xanax PO 3 mg HS PRN Administration ANXIETY Aspirin 81 mg 11/21/18 17:30 11/22/18 09:29 Ecotrin - PO 81 mg DAILY OSCAR Administration Atorvastatin Calcium 20 mg 11/17/18 22:00 11/22/18 21:30 Lipitor - PO 20 mg HS OSCAR Administration Clonazepam 2 mg 11/22/18 22:00 11/22/18 21:30 Klonopin - PO 2 mg HS OSCAR Administration Divalproex Sodium 1,500 mg 11/17/18 22:00 11/22/18 21:29 Depakote *Er* - PO 1,500 mg HS OSCAR Administration Enoxaparin Sodium 40 mg 11/18/18 10:00 11/20/18 09:22 Lovenox - SQ 40 mg DAILY OSCAR Administration Escitalopram Oxalate 10 mg 11/17/18 22:00 11/22/18 21:29 Lexapro - PO 10 mg HS OSCAR Administration Melatonin 10 mg 11/17/18 22:00 11/22/18 21:30 Melatonin PO 10 mg HS OSCAR Administration Nicotine 14 mg 11/17/18 20:45 11/22/18 09:55 Nicoderm Patch - TD 14 mg DAILY OSCAR Administration * Imaging CxR - No acute pathology Cervical CT: DJD, no acute fracture CT Head : No acute intracranial pathology CT pelvis: No acute fracture or dislocation, DJD CT Lower ext: No acute fracture CT Chest: COPD with Interstitial lung disease,no infiltrate ASSESSMENT/PLAN: 68 year-old male with a PMH significant for HTN, HLD, CVA 11/2017, prostate cancer s/p RT, RA, and chronic anxiety. Patient was admitted after approximately 8 falls in 2 days, the result of RLE weakness secondary to CVA and severe right hip degenerative disease. PMD Dr. Emery *Severe right hip degenerative disease -pt was evalauted by ortho Dr. Holden -Initial plan was to have Ramiro right hip replacement but postponed due to leukocytosis - will cont on pain meds - PT following *Leukocytosis-likely related to IV Solumedrol given on 11/19-11/20 - WBC trending down 22.5> 20.9> 11.7>11.4 - afebrile - BC preliminary showed no growth - UA showed no growth - Imaging reviewed, no evidence of acute infection - ID following -will observe off antibiotics *COPD Interstitial lung disease -chronic findings on chest CT; - pul rec bronchodilators and to use Incentive Spirometry post op - pul cleared for sx *Hypertension -BP stable, not on meds - will monitor BP closely *Hyperlipidemia -continue Lipitor * Hx of CVA -residual right-sided weakness -resume ASA and Statin *Prostate cancer -stable *Anxiety- calm - will continue on home dose Clonazepam, Lexapro, Depakote and Alprazolam * Smoking - will cont on Nicotine patch - smoking cessation counselling reinforced FEN Fluids: PO intake adequate Electrolytes: replete as indicated Nutrition: low sodium DVT prophylaxis: subq Lovenox Physical therapy Dispo: Discharge planning to go to SNF on Saturday Code status:Full code. Visit type - Emergency Visit Emergency Visit: Yes ED Registration Date: 11/17/18 Care time: The patient presented to the Emergency Department on the above date and was hospitalized for further evaluation of their emergent condition. - New Patient This patient is new to me today: Yes Date on this admission: 11/23/18 - Critical Care Critical Care patient: No
[2018-11-23 09:25] LABS: BASO % 0.6 % (0-2.0); EOS % 6.2 % (0-4.5); HEMOGLOBIN 12.8 GM/dl (11.7-16.9); LYMPH % 46.1 % (8-40); MCH 31.9 pg (25.7-33.7); MEAN CELL VOLUME 96.7 fl (80-96); MONO % 11.6 % (3.8-10.2); NEUT % 35.5 % (42.8-82.8); PLATELET COUNT 216 K/MM3 (134-434); RBC 4.03 M/mm3 (4.00-5.60); RDW 12.9 % (11.9-15.9); WHITE BLOOD COUNT 11.4 K/mm3 (4.0-10.8)
[2018-11-23 09:32] LABS: CALCIUM 8.5 mg/dl (8.5-10); CREATININE 1.1 mg/dl (0.55-1.3); POTASSIUM 4.2 mmol/L (3.5-5.1)
[2018-11-23] MEDS: ASPIRIN COATED 81 MG TABLET.EC PO SCH (10:15)
[2018-11-23] MEDS: NICOTINE 14 MG/24 HOURS TOPICAL PATCH TD SCH (10:15)
[2018-11-23] MEDS: DIVALPROEX NA *ER* EXTEND REL 500 MG TABLET.SA (FP) PO SCH (21:38)
[2018-11-23] MEDS: ALPRAZolam 1 MG TABLET PO PRN (21:39)
[2018-11-23] MEDS: clonazePAM 2 MG TABLET PO SCH (21:42)
[2018-11-23] MEDS: ATORVASTATIN CA 20 MG TABLET (FP) PO SCH (21:43)
[2018-11-23] MEDS: MELATONIN 5 MG TABLETS PO SCH (21:43)
[2018-11-23] MEDS: ESCITALOPRAM OXALATE 20 MG TABLET (FP) PO SCH (21:43)
[2018-11-24 08:14] LABS: BASO % 0.5 % (0-2.0); EOS % 9.2 % (0-4.5); HEMATOCRIT 36.6 % (35.4-49); HEMOGLOBIN 12.3 GM/dl (11.7-16.9); LYMPH % 50.4 % (8-40); MCHC 33.5 g/dl (32.0-35.9); MEAN CELL VOLUME 95.7 fl (80-96); MEAN PLT VOLUME 7.8 fl (7.5-11.1); MONO % 9.7 % (3.8-10.2); NEUT % 30.2 % (42.8-82.8); PLATELET COUNT 211 K/MM3 (134-434); RBC 3.83 M/mm3 (4.00-5.60); RDW 12.6 % (11.9-15.9); WHITE BLOOD COUNT 10.3 K/mm3 (4.0-10.8)
[2018-11-24] MEDS: NICOTINE 14 MG/24 HOURS TOPICAL PATCH TD SCH (09:24)
[2018-11-24] MEDS: ASPIRIN COATED 81 MG TABLET.EC PO SCH (09:24)
--- NOTE | 2018-11-24 09:46 | PN ---
Progress Note, Physician History of Present Illness: AWAKE, ALERT IN BED NO C/O PAIN AT REST AFEBRILE WBC NOW WNL CULTURES NEGATIVE - Current Medication List Current Medications: Active Medications Acetaminophen (Tylenol -) 650 mg PO Q6H PRN PRN Reason: PAIN LEVEL 1-5 Last Admin: 11/22/18 09:30 Dose: 650 mg Albuterol/Ipratropium (Duoneb -) 1 amp NEB Q4H PRN PRN Reason: SHORTNESS OF BREATH Aspirin (Ecotrin -) 81 mg PO DAILY [facility] Last Admin: 11/24/18 09:24 Dose: 81 mg Atorvastatin Calcium (Lipitor -) 20 mg PO HS [facility] Last Admin: 11/23/18 21:43 Dose: 20 mg Clonazepam (Klonopin -) 2 mg PO HS [facility] Last Admin: 11/23/18 21:42 Dose: 2 mg Divalproex Sodium (Depakote *Er* -) 1,500 mg PO HS [facility] Last Admin: 11/23/18 21:38 Dose: 1,500 mg Enoxaparin Sodium (Lovenox -) 40 mg SQ DAILY [facility] Last Admin: 11/20/18 09:22 Dose: 40 mg Escitalopram Oxalate (Lexapro -) [address] [facility] Last Admin: 11/23/18 21:43 Dose: 10 mg Melatonin (Melatonin) 10 mg PO HS [facility] Last Admin: 11/23/18 21:43 Dose: 10 mg Nicotine (Nicoderm Patch -) 14 mg TD DAILY [facility] Last Admin: 11/24/18 09:24 Dose: 14 mg - Objective Vital Signs: Vital Signs Temperature 97 F L 11/24/18 06:00 Pulse Rate 47 L 11/24/18 06:00 Respiratory Rate 11/24/18 06:00 Blood Pressure 136/62 11/24/18 06:00 O2 Sat by Pulse Oximetry (%) 90 L 11/24/18 06:00 Constitutional: Yes: No Distress Eyes: Yes: Conjunctiva Clear Cardiovascular: Yes: Regular Rate and Rhythm, S1, S2 Respiratory: Yes: CTA Bilaterally Gastrointestinal: Yes: Normal Bowel Sounds, Soft Edema: No Labs: CBC, BMP 11/24/18 06:52 11/23/18 06:15 INR, PTT INR 1.05 (0.83-1.09) 11/17/18 17:41 Assessment/Plan LEUKOCYTOSIS- STEROID-INDUCED DJD WBC WNL CULTURES NEGATIVE CLEARED FOR ORTHO SURGERY FROM ID STANDPOINT
--- NOTE | 2018-11-24 14:17 | DS ---
Physical Exam: SUBJECTIVE: Patient seen and examined OBJECTIVE: Vital Signs Period Temp Pulse Resp BP Sys/Bhandari Pulse Ox Last 24 Hr 97 F-97.5 F 47-78 -19 101-136/62-73 90-98 PHYSICAL EXAM GENERAL: The patient is awake, alert, and fully oriented, in no acute distress. LUNGS: Breath sounds equal, clear to auscultation bilaterally, no wheezes, no crackles, no accessory muscle use. HEART: Regular rate and rhythm, S1, S2 ABDOMEN: Soft, nontender, nondistended EXTREMITIES: 2+ pulses, warm, well-perfused, no edema. NEUROLOGICAL: Cranial nerves II through XII grossly intact. Normal speech LABS CBCD WBC 10.3 K/mm3 (4.0-10.8) 11/24/18 06:52 RBC 3.83 M/mm3 (4.00-5.60) L 11/24/18 06:52 Hgb 12.3 GM/dl (11.7-16.9) 11/24/18 06:52 Hct 36.6 % (35.4-49) 11/24/18 06:52 MCV 95.7 fl (80-96) 11/24/18 06:52 MCHC 33.5 g/dl (32.0-35.9) 11/24/18 06:52 RDW 12.6 % (11.9-15.9) 11/24/18 06:52 Plt Count 211 K/MM3 (134-434) 11/24/18 06:52 MPV 7.8 fl (7.5-11.1) 11/24/18 06:52 CMP Sodium 138 mmol/L (136-145) 11/23/18 06:15 Potassium 4.2 mmol/L (3.5-5.1) 11/23/18 06:15 Chloride 107 mmol/L (98-107) 11/23/18 06:15 Carbon Dioxide 22 mmol/L (21-32) 11/23/18 06:15 Anion Gap 9 MMOL/L (8-16) 11/23/18 06:15 BUN 30.0 mg/dl (7-18) H 11/23/18 06:15 Creatinine 1.1 mg/dl (0.55-1.3) 11/23/18 06:15 Calcium 8.5 mg/dl (8.5-10) 11/23/18 06:15 Total Bilirubin 0.6 mg/dl (0.2-1) 11/22/18 07:55 AST 29 U/L (15-37) 11/22/18 07:55 ALT 24 U/L (13-61) 11/22/18 07:55 Alkaline Phosphatase 96 U/L (45-117) 11/22/18 07:55 Total Protein 6.3 g/dl (6.4-8.2) L 11/22/18 07:55 Albumin 2.9 g/dl (3.4-5.0) L 11/22/18 07:55 HOSPITAL COURSE: Date of Admission:11/17/18 Date of Discharge: 11/24/18 68 year-old male with a PMH significant for HTN, HLD, CVA 11/2017, prostate cancer s/p RT, RA, and chronic anxiety. Patient was admitted for frequent falls secondary to right-sided weakness following a CVA, and severe right hip degenerative disease. Severe right hip degenerative disease --was seen and evaluated by ortho and was scheduled for a Ramiro right hip replacement on 11/21; the surgery was postponed due to leukocytosis --tylenol, tramadol given for pain Leukocytosis --likely related to IV solumedrol given on 11/19-11/20 by pulmonary --kept in patient for an additional 3 days, leukocytosis resolved, remained afebrile; was not treated with antibiotics --surgery to be rescheduled COPD Interstitial lung disease --chronic findings on chest CT; nebs should be administered perioperatively Hypertension --BP stable, not on meds Hyperlipidemia --continued Lipitor CVA --residual right-sided weakness --resume ASA after surgery was canceled Prostate cancer --stable Anxiety --continued Lexapro, depakote, alprazolam Minutes to complete discharge: 35 Discharge Summary Reason For Visit: RECURRENT FALLS Current Active Problems Falls frequently (Acute) Osteoarthritis (Acute) Condition: Improved - Instructions Diet, Activity, Other Instructions: You should stay in touch with Dr. Holden regarding your upcoming surgery. Referrals: Star Emery MD [Primary Care Provider] - Disposition: HOME - Home Medications Comprehensive Discharge Medication List: Ambulatory Orders Escitalopram Oxalate [Lexapro -] 10 mg PO HS 11/16/17 Aspirin Coated [Ecotrin -] 81 mg PO DAILY tablet.ec 11/22/17 Clonazepam [Klonopin] 2 mg PO HS 11/17/18 Alprazolam [Xanax] 1 mg PO QID 11/18/18 Gabapentin 300 mg PO AM 11/22/18 Gabapentin [Neurontin] 600 mg PO HS 11/22/18 Atorvastatin Ca [Lipitor] 20 mg PO HS tablet 11/24/18 Divalproex *ER* [Depakote *ER* -] 1,500 mg PO HS tablet.sa 11/24/18 Nicotine Patch [Nicoderm Patch -] 14 mg TD DAILY patch 11/24/18 This patient is new to me today: No Emergency Visit: Yes ED Registration Date: 11/17/18 Care time: The patient presented to the Emergency Department on the above date and was hospitalized for further evaluation of their emergent condition. Critical Care patient: No - Discharge Referral Referred to [facility] Med P.C.: No
[2018-11-24 14:41] VITALS: BP 118/84; PULSE 108; TEMP 98.2
== END 2018-11-24 15:05 | disposition home or self-care (01) | DRG 554 ==
LOC: JER 16:11 → FM/S 19:14 → JERBED 19:14 → UNDOADMIN 19:14 → J5S 20:43 → JERBED 20:43 → J5S 11-20 15:51 → UNDOADMIN 11-20 15:51 → FM/S 11-20 15:51 → UNDOADMIN 11-20 15:55 → J5S 11-20 15:55 → FM/S 11-20 15:56 → J5S 11-20 15:56
PROVIDERS: ADMIT Internal Medicine; ATTEND Nurse Practitioner Acute Care
DX: M16.11 Unilateral primary osteoarthritis, right hip (principal); E46 Unspecified protein-calorie malnutrition; J84.9 Interstitial pulmonary disease, unspecified; I69.351 Hemiplegia and hemiparesis following cerebral infarction affecting right dominant side; E88.09 Other disorders of plasma-protein metabolism, not elsewhere classified; J32.2 Chronic ethmoidal sinusitis; I10 Essential (primary) hypertension; D72.829 Elevated white blood cell count, unspecified; G47.00 Insomnia, unspecified; F17.210 Nicotine dependence, cigarettes, uncomplicated; E78.5 Hyperlipidemia, unspecified; J44.9 Chronic obstructive pulmonary disease, unspecified; F41.8 Other specified anxiety disorders
CPT/HCPCS: 36415; 70450-TC; 71045-TC-FY; 71250-TC; 72125-TC; 72192-TC; 73523-TC-FY; 73700-TC-RT; 80048; 80053; 80164; 80307; 81003; 82607; 82746; 83735; 84100; 84443; 85025; 85027; 85610; 85730; 86850; 86900; 86901; 87040; 87086; 93005; 93010; 97116-GP; 97161-GP; 99283-25; J0131

== ENCOUNTER 2018-12-02 08:40 | Inpatient (IN) | payer OTHER, BC ==
--- NOTE | 2018-12-02 09:01 | PDOC ---
History of Present Illness - General Chief Complaint: Injury Stated Complaint: pain to left wrist s/p fall Time Seen by Provider: 12/02/18 08:56 - History of Present Illness Initial Comments: 12/02/18 08:56 68-year-old male history of prostate CA, CVA 2 mo ago, s/p rehab ( states full recovery) and frequent falls here today from home with a recurrent fall. Patient is currently scheduled to have right hip surgery for osteoarthritis today at [address] Villa. Per his who provides history patient was in the shower this a.m. he has a shower chair was getting out of the chair and subsequently fell as his hip gave out he subsequently landed on his knees. She denies any he denies any head trauma no LOC states he has been unable to walk since his fall. pt states had a fall yesterday, patient did hit and hyperextended his left wrist is complaining of pain and bruising in that left wrist, which In addition patient states that from his prior CVAs he had prior right-sided weakness. However he states that over the last 2 weeks he has had left-sided weakness in the left leg and left arm patient is noted to have a mild left facial droop. The patient's this the facial droop is old and not new . Denies any fevers chills no chest pain no shortness of breath no other current complaints. pt denies head trauma in yesterday or todays fall. but did hit his head 2 weeks ago,from which he has a residual abrasion on his forehead. meds: depakote, klonpine. lexapro, asa 81, simvastain, gabapentin, xanax. Past History - Past Medical History Allergies/Adverse Reactions: Allergies Allergy/AdvReac Type Severity Reaction Status Date / Time Penicillins Allergy Verified 12/02/18 08:43 Home Medications: Ambulatory Orders Escitalopram Oxalate [Lexapro -] 10 mg PO HS 11/16/17 Aspirin Coated [Ecotrin -] 81 mg PO DAILY tablet.ec 11/22/17 Clonazepam [Klonopin] 2 mg PO HS 11/17/18 Alprazolam [Xanax] 3 mg PO HS 11/18/18 Gabapentin 300 mg PO BID 11/22/18 Gabapentin [Neurontin] 600 mg PO HS 11/22/18 Divalproex *ER* [Depakote *ER* -] 1,500 mg PO HS tablet.sa 11/24/18 Acetaminophen 1,000 mg PO ASDIR PRN 11/25/18 Diphenhydramine [Benadryl -] 100 mg PO HS 11/25/18 Simvastatin 40 mg PO HS 11/25/18 Nicotine Patch [Nicoderm Patch -] 21 mg TD DAILY 12/02/18 Anemia: No Asthma: No Cancer: Yes (BASAL CELL, PROSTATE CA) Cardiac Disorders: No CVA: Yes (R Hemiparesis 11/27,IMPROVED BUT NOW R/T RIGHT HIP ARTHRITIS) COPD: No CHF: No Dementia: No Diabetes: No GI Disorders: Yes (RECTAL BLEEDING, COLON POLYP) Disorders: Yes (PROSTATE CA SEEDING AND RADIATION 2011) HTN: No Hypercholesterolemia: Yes Liver Disease: No Psychiatric Problems: Yes Seizures: No Thyroid Disease: No - Surgical History Abdominal Surgery: Yes (HERNIA REPAIR 2007) Appendectomy: No Cardiac Surgery: No Cholecystectomy: No Lung Surgery: No Neurologic Surgery: No Orthopedic Surgery: No - Immunization History Immunization Up to Date: Yes - Suicide/Smoking/Psychosocial Hx Smoking History: Former smoker Have you smoked in the past 12 months: No Number of Cigarettes Smoked Daily: 10 Information on smoking cessation initiated: No 'Breaking Loose' booklet given: 12/27/17 Hx Alcohol Use: No Drug/Substance Use Hx: No Substance Use Type: None Hx Substance Use Treatment: No Review of Systems - Review of Systems Constitutional: No: Chills, Diaphoresis, Fever HEENTM: No: Eye Pain, Blurred Vision Respiratory: No: Cough, Orthopnea Cardiac (ROS): No: Chest Pain Musculoskeletal: Yes: Joint Pain Integumentary: No: Bruising Neurological: Yes: Weakness All Other Systems: Reviewed and Negative *Physical Exam - Vital Signs Last Vital Signs Temp Pulse Resp BP Pulse Ox 97.6 F 51 L 17 143/72 95 12/02/18 08:43 12/02/18 08:43 12/02/18 08:43 12/02/18 08:43 12/02/18 08:43 - Physical Exam Comments: 12/02/18 08:59 Awake alert no acute distress. There is mild left facial droop noted. ( nasolabial fold flattening, old) . speech is with mild slurring (baseline). Lungs are clear bilaterally heart is regular without any murmurs rubs or gallops abdomen is soft and nontender extremities are warm and well-perfused. The left wrist is noted for ecchymosis and fullness over the dorsum aspect. There is decreased range of motion with flexion and extension due to pain. There is 2+ radial ulnar pulses. The left elbow, shoulder is with full range of motion and nontender. Bilateral hips are intact with full range of motion. There is tenderness with range of motion on the right hip. (Baseline). Neurologically the patient is alert and oriented 3. Speech is with mild slurring which is baseline. Cranial nerve VII with mild drooping on the left side. Strength testing reveals mild left upper extremity weakness 4+ out of 5. The left leg is 4+ out of 5 for strength. Right upper and lower extremities are 5 out of 5. Sensation is intact bilaterally skin is otherwise warm and dry except for the ecchymosis noted above. Heart Score/ECG Review #1 General ECG Interpretation: Sinus Rhythm, Normal Rate, Normal Intervals, No acute ischemic changes Compared to previous ECG there are: Other (RBBB (old)) ED Treatment Course - LABORATORY CBC & Chemistry Diagram: 12/02/18 09:00 12/02/18 09:00 - RADIOLOGY Radiology Studies Ordered: Category Date Time Status HEAD CT WITHOUT CONTRAST [CT] Stat CT Scan 12/02/18 08:51 Ordered WRIST W/HAND-LEFT* [RAD] Stat Radiology 12/02/18 08:51 Ordered Medical Decision Making - Medical Decision Making 12/02/18 09:01 8-year-old male history of previous CVA TIAs and frequent falls scheduled for orthopedics surgery today here with a recurrent fall this a.m. Complaining of left wrist pain. Is also noted to have left upper and lower extremity weakness which she states is been going on for weeks but is new from prior stroke symptoms. We will repeat a head CT today will discuss the patient's neurologist confirm that this and intact new. We'll also discuss patient's orthopedic surgeon and PCP basic labs CBC CMP coags EKG preop chest x-ray and head CT. Per chart review patient was recently admitted earlier this month with an elevated white blood cell countwe'll also obtain a preop UA to rule out an underlying UTI 12/02/18 09:33 review pt records. Old MRI earlier this month with left sided cerebral infarcts which would correlate with right sided weakness previously. pt reports left sided weakness is at least 2 weeks old. will repeat head ct. repeat films demonstrating nondisplaced left distal radial fracture. no acute hand fracture. dr Holden paged. 12/02/18 10:16 pt with subacute new left mid/ frontal gyrus infarct. no new right sided cva to explain left sided weakness. dw/ DR holden to came to ED, will postpone sugery. left wrist splint placed. pt admitted to hospitalist. calld [facility] service, told to admit to hospitalist. *DC/Admit/Observation/Transfer Diagnosis at time of Disposition: Wrist fracture, left, Weakness - Discharge Dispostion Condition at time of disposition: Fair Decision to Admit order: Yes - Referrals Referrals: Noah Holden MD [Primary Care Provider] - - Patient Instructions - Post Discharge Activity
[2018-12-02 09:41] LABS: HEMOGLOBIN 11.9 GM/dl (11.7-16.9)
[2018-12-02 09:48] LABS: ALBUMIN 2.9 g/dl (3.4-5.0); BILIRUBIN,TOTAL 0.3 mg/dl (0.2-1); CALCIUM 8.3 mg/dl (8.5-10); CREATININE 1.2 mg/dl (0.55-1.3); TOT PROT 6.3 g/dl (6.4-8.2)
[2018-12-02 09:50] LABS: HEMATOCRIT 35.2 % (35.4-49); MCH 32.4 pg (25.7-33.7); MCHC 33.8 g/dl (32.0-35.9); MEAN PLT VOLUME 7.4 fl (7.5-11.1); PLATELET COUNT 246 K/MM3 (134-434); RBC 3.66 M/mm3 (4.00-5.60); RDW 12.7 % (11.9-15.9); WHITE BLOOD COUNT 10.5 K/mm3 (4.0-10.8)
[2018-12-02 09:54] LABS: ACTIVATED PTT 29.1 SECONDS (25.2-36.5)
[2018-12-02 09:58] LABS: INR 1.14 (0.82-1.09); PROTHROMBIN TIME (PATIENT) 12.7 SEC (10.2-13.0)
[2018-12-02] MEDS ORDERED: SODIUM CHLORIDE 0.9% 1000 ML INFUS.BAG IV ONE (10:14)
[2018-12-02 11:18] LABS: PLATELET ESTIMATE ADEQUATE
--- NOTE | 2018-12-02 11:52 | HP ---
CHIEF COMPLAINT: Left wrist pain PCP: Dr. 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 Recently hospitalized 11/17-11/24/18 for frequent falls. Was scheduled for elective right hip replacement surgery today with Dr. Holden. Last night patient fell at home and injured his left wrist. This morning he fell again getting out of a shower chair and landed on his knees. Patient has had right- sided weakness since his CVA in November 2017 and now reports new left-sided weakness, upper and lower extremities, over the past two weeks. ER course was notable for: (1) Xray left wrist: nondisplaced impacted fracture distal left radius (2) CT head: subacute nonhemorrhagic infarct not seen on CT 11/17/18 Recent Travel: No PAST MEDICAL HISTORY: Hypertension Hyperlipidemia CVA with right-sided weakness Prostate cancer s/p RTX Rheumatoid arthritis Bipolar Disorder Anxiety PAST SURGICAL HISTORY: Bilateral inguinal hernia repair Social History: Smoking: current Alcohol: no Drugs: no Family History: father(leukemia, decesased in 90y/o), mother(heart disease, in 90y/o) Allergies Penicillins Allergy (Verified 12/02/18 08:43) HOME MEDICATIONS: Home Medications Medication Instructions Recorded Escitalopram Oxalate [Lexapro -] 10 mg PO HS 11/16/17 Aspirin Coated [Ecotrin -] 81 mg PO DAILY tablet.ec 11/22/17 Clonazepam [Klonopin] 2 mg PO HS 11/17/18 Alprazolam [Xanax] 3 mg PO HS 11/18/18 Gabapentin 300 mg PO BID 11/22/18 Gabapentin [Neurontin] 600 mg PO HS 11/22/18 Divalproex *ER* [Depakote *ER* -] 1,500 mg PO HS tablet.sa 11/24/18 Acetaminophen 1,000 mg PO ASDIR PRN 11/25/18 Diphenhydramine [Benadryl -] 100 mg PO HS 11/25/18 Simvastatin 40 mg PO HS 11/25/18 Nicotine Patch [Nicoderm Patch -] 21 mg TD DAILY 12/02/18 REVIEW OF SYSTEMS CONSTITUTIONAL: Absent: fever, chills, diaphoresis, generalized weakness, malaise, loss of appetite, weight change HEENT: Absent: rhinorrhea, nasal congestion, throat pain, throat swelling, difficulty swallowing, mouth swelling, ear pain, eye pain, visual changes CARDIOVASCULAR: Absent: chest pain, syncope, palpitations, irregular heart rate, lightheadedness , peripheral edema RESPIRATORY: Absent: cough, shortness of breath, dyspnea with exertion, orthopnea, wheezing, stridor, hemoptysis GASTROINTESTINAL: Absent: abdominal pain, abdominal distension, nausea, vomiting, diarrhea, constipation, melena, hematochezia GENITOURINARY: Absent: dysuria, frequency, urgency, hesitancy, hematuria, flank pain, genital pain MUSCULOSKELETAL: +left wrist pain Absent: myalgia, arthralgia, joint swelling, back pain, neck pain SKIN: Absent: rash, itching, pallor HEMATOLOGIC/IMMUNOLOGIC: Absent: easy bleeding, easy bruising, lymphadenopathy, frequent infections ENDOCRINE: Absent: unexplained weight gain, unexplained weight loss, heat intolerance, cold intolerance NEUROLOGIC: +gait instability, chronic right sided weakness, new left sided weakness Absent: headache, focal weakness or paresthesias, dizziness, seizure, mental status changes, bladder or bowel incontinence PSYCHIATRIC: +anxiety Absent: anxiety, depression, suicidal or homicidal ideation, hallucinations. PHYSICAL EXAMINATION Vital Signs - 24 hr 12/02/18 12/02/18 08:43 11:13 Temperature 97.6 F Pulse Rate 51 L Pulse Rate [ 51 L Apical] Respiratory 17 19 Rate Blood Pressure 143/72 Blood Pressure 163/81 [Arm] O2 Sat by Pulse 95 97 Oximetry (%) GENERAL: Awake, alert, and fully oriented, in no acute distress. HEAD: Normal with no signs of trauma. EYES: Pupils equal, round and reactive to light, extraocular movements intact, sclera anicteric, conjunctiva clear. No lid lag. EARS, NOSE, THROAT: Ears normal, nares patent, oropharynx clear without exudates. Moist mucous membranes. NECK: Normal range of motion, supple without lymphadenopathy, JVD, or masses. LUNGS: Breath sounds equal, clear to auscultation bilaterally. No wheezes, and no crackles. No accessory muscle use. HEART: Regular rate and rhythm, normal S1 and S2 without murmur, rub or gallop. ABDOMEN: Soft, nontender, not distended, normoactive bowel sounds, no guarding, no rebound, no masses. No hepatomegaly or splenomegaly. MUSCULOSKELETAL: Left wrist splinted UPPER EXTREMITIES: 2+ pulses, warm, well-perfused. No cyanosis. No clubbing. No peripheral edema. LOWER EXTREMITIES: 2+ pulses, warm, well-perfused. No calf tenderness. No peripheral edema. NEUROLOGICAL: Cranial nerves II-XII intact. Normal speech. Normal gait. PSYCHIATRIC: Cooperative. Good eye contact. Appropriate mood and affect. SKIN: Warm, dry, normal turgor, no rashes or lesions noted, normal capillary refill. Laboratory Results - last 24 hr 12/02/18 12/02/18 12/02/18 09:00 09:00 09:00 WBC 10.5 RBC 3.66 L Hgb 11.9 Hct 35.2 L MCV 96.0 MCH 32.4 MCHC 33.8 RDW 12.7 Plt Count 246 MPV 7.4 L Absolute Neuts (auto) 5.9 Neutrophils % No Result Required. Neutrophils % (Manual) 60.0 Lymphocytes % No Result Required. 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 Recently hospitalized 11/17-11/24/18 for frequent falls. Was scheduled for elective right hip replacement surgery today with Dr. Holden. Fell last night at home, was directed to the ED by Dr. Holden for left wrist injury. CT head with new findings of subacute infarct. Left wrist fracture --Xray left wrist: nondisplaced impacted fracture distal left radius --splinted, no surgical intervention indicated CVA with residual right sided weakness, November 2017 --11/2017 Echo: nl LV/RV size and function, nl LA size, mild MR, aortic sclerosis without sig stenosis, E/A reversal --11/2017 US carotids: no significant stenosis bilaterally --has been on ASA only due to recurrent fall history; will continue; continue Lipitor New subacute CVA ruled out --CT imaging suggestive of interval development of subacute infarct since 11/17; --MRI shows no acute infarct --Dr. Goodman will see patient in am Severe right hip degenerative disease --was originally scheduled for a Ramiro right hip replacement on 11/21, rescheduled for today --surgery on hold pending neuro workup --Dr. Holden following COPD Interstitial lung disease --chronic findings on chest CT --duonebs TID Hypertension --BP stable, not on meds Sinus bradycardia --asymptomatic, baseline Hyperlipidemia --continued Lipitor Prostate cancer --stable Bipolar spectrum disorder Anxiety --spoke with treating psychiatrist Dr. Nick Polanco ([phone]); patient on the bipolar spectrum; long history of substance abuse, remote; few hospitalizations with quasi-psychotic features; verified medications: Xanax 3mg qhs, clonazepam 2 to 4mg QHS, Benadryl 100mg QHS, depakote 1500mg QHS, lexapro 10mg daily --reviewed medication list with who agrees FEN Fluids: PO intake adequae Electrolytes: replete as indicated Nutrition: low sodium; NPO after midnight DVT prophylaxis: ASA 81mg; SCDs Physical therapy Dispo: continues to require inpatient care. Full code. Visit type - Emergency Visit Emergency Visit: Yes ED Registration Date: 12/02/18 Care time: The patient presented to the Emergency Department on the above date and was hospitalized for further evaluation of their emergent condition. - New Patient This patient is new to me today: Yes Date on this admission: 12/02/18 - Critical Care Critical Care patient: No
[2018-12-02] MEDS ORDERED: NICOTINE 14 MG/24 HOURS TOPICAL PATCH TD SCH (12:15)
[2018-12-02] MEDS: ASPIRIN COATED 81 MG TABLET.EC PO SCH (13:24)
[2018-12-02] MEDS: NICOTINE 21 MG/24 HOURS TOPICAL PATCH TD SCH (13:24)
[2018-12-02] MEDS: GABAPENTIN 300 MG CAPSULE (FP) PO SCH ×3 (13:25→21:24)
[2018-12-02] MEDS ORDERED: LORazepam 2 MG/ML SDV VIAL IVPUSH ONE (13:30)
--- NOTE | 2018-12-02 14:21 | CON.ORTH ---
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: Peripheral Neuropathy Cardio/Vascular: Yes: HTN Renal/: Yes: Cancer (prostate (s/p RT)) Psych: Yes: Anxiety, Bipolar, Depression Musculoskeletal: Yes: Chronic low back pain (/ spinal stenosis) Rheumatology: Yes: Rheumatoid Arthritis Dermatology: Yes: Basal Cell (-s/p multiple removals) - Past Surgical History Past Surgical History: Yes: Cataract Removal, Hernia Repair (umbilical, inguinal hernia repair) - Alcohol/Substance Use Hx Alcohol Use: No History of Substance Use: reports: None - Smoking History Smoking history: Former smoker Have you smoked in the past 12 months: No Aproximately how many cigarettes per day: 10 - Social History Usual Living Arrangement: With Spouse ADL: Independent 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 History of Recent Travel: No Home Medications - Allergies Allergies/Adverse Reactions: Allergies Allergy/AdvReac Type Severity Reaction Status Date / Time Penicillins Allergy Verified 12/02/18 08:43 - Home Medications Home Medications: Ambulatory Orders Escitalopram Oxalate [Lexapro -] 10 mg PO HS 11/16/17 Aspirin Coated [Ecotrin -] 81 mg PO DAILY tablet.ec 11/22/17 Clonazepam [Klonopin] 2 mg PO HS 11/17/18 Alprazolam [Xanax] 3 mg PO HS 11/18/18 Gabapentin 300 mg PO BID 11/22/18 Gabapentin [Neurontin] 600 mg PO HS 11/22/18 Divalproex *ER* [Depakote *ER* -] 1,500 mg PO HS tablet.sa 11/24/18 Acetaminophen 1,000 mg PO ASDIR PRN 11/25/18 Diphenhydramine [Benadryl -] 100 mg PO HS 11/25/18 Simvastatin 40 mg PO HS 11/25/18 Nicotine Patch [Nicoderm Patch -] 21 mg TD DAILY 12/02/18 Family Disease History - Family Disease History Family Disease History: CA: Mother, Other: Daughter (autism) Physical Exam for Ortho Vital Signs: Vital Signs Temperature 97.7 F 12/02/18 13:29 Pulse Rate 54 L 12/02/18 13:29 Respiratory Rate 16 12/02/18 13:29 Blood Pressure 140/70 12/02/18 13:29 O2 Sat by Pulse Oximetry (%) 98 12/02/18 13:29 Labs: CBC, BMP 12/02/18 09:00 12/02/18 09:00 INR, PTT INR 1.14 (0.82-1.09) 12/02/18 09:00 - Upper Extremity Wrist: Yes: Left, Limited ROM, Pain, Swelling, Tenderness, Other (splint intact , nvi) Imaging - Results X-ray: Report Reviewed, Image Reviewed Assessment/Plan 68 year-old male with a PMH significant for HTN, HLD, 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 Recently hospitalized 11/17-11/24/18 for frequent falls. Was scheduled for elective right hip replacement surgery today but fell last night at home, was directed to the ED by Dr. Holden for left wrist injury. CT head with new findings of subacute infarct. a/p left minimally displaced distal radius fx, right hip djd splint applied to left wrist- no surgical intervention strict elevation right thr once medically stable will follow d/w Dr. Holden
[2018-12-02 15:17] VITALS: BMI 26.6
--- NOTE | 2018-12-02 15:19 | EKG ---
Test Reason : Blood Pressure : / mmHG Vent. Rate : 048 BPM Atrial Rate : 048 BPM P-R Int : 172 ms QRS Dur : 148 ms QT Int : 528 ms P-R-T Axes : 040 -10 028 degrees QTc Int : 471 ms SINUS BRADYCARDIA RIGHT BUNDLE BRANCH BLOCK ABNORMAL ECG WHEN COMPARED WITH ECG OF 17-NOV-2018 17:25, T WAVE INVERSION NO LONGER EVIDENT IN ANTERIOR LEADS Confirmed by MD Glenn, Macho ([id number]) on 12/02/2018 3:18:38 PM Referred By: VALERIY VILLALTA Confirmed By:Macho Elizabeth MD
[2018-12-02] MEDS: ALBUTEROL SO4 2.5/IPRATROPIUM 0.5 INH SOL 3 ML VIAL.NEB. NEB SCH (19:56)
[2018-12-02] MEDS: ATORVASTATIN CA 20 MG TABLET (FP) PO SCH (21:21)
[2018-12-02] MEDS: ALPRAZolam 1 MG TABLET PO SCH (21:22)
[2018-12-02] MEDS: clonazePAM 2 MG TABLET PO SCH (21:22)
[2018-12-02] MEDS: DIVALPROEX NA *ER* EXTEND REL 500 MG TABLET.SA (FP) PO SCH (21:22)
[2018-12-02] MEDS: diphenhydrAMINE HCL 25 MG CAPSULE (FP) PO SCH (21:22)
[2018-12-02] MEDS: ESCITALOPRAM OXALATE 10 MG TABLET (FP) PO SCH (21:30)
--- NOTE | 2018-12-03 08:48 | CONSULT ---
Consult - text type - Consultation Consultation Note: Neurology CHIEF COMPLAINT: Left wrist pain PCP: Dr. 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 Recently hospitalized 11/17-11/24/18 for frequent falls. Was scheduled for elective right hip replacement surgery with Dr. Holden. Reportedly fell at home and injured his left wrist. Following morning he fell again getting out of a shower chair and landed on his knees. Patient has had right-sided weakness since his CVA in November 2017 and now reported new left-sided weakness, upper and lower extremities, over the past two weeks. Xray left wrist showed nondisplaced impacted fracture distal left radius, CT head with subacute nonhemorrhagic infarct not seen on CT 11/17/18. Contacted by ER and surgery was put on hold. Admitted and completed MRI brain which did not show acute changes, old L parietal infarct noted. 2018 Echo: nl LV/RV size and function, nl LA size, mild MR, aortic sclerosis without sig stenosis, E/A reversal 11/2017 US carotids: no significant stenosis bilaterally PAST MEDICAL HISTORY: Hypertension Hyperlipidemia CVA with right-sided weakness Prostate cancer s/p RTX Rheumatoid arthritis Bipolar Disorder Anxiety PAST SURGICAL HISTORY: Bilateral inguinal hernia repair Social History: Smoking: current Alcohol: no Drugs: no Family History: father(leukemia, decesased in 90y/o), mother(heart disease, in 90y/o) Allergies Penicillins Allergy (Verified 12/02/18 08:43) HOME MEDICATIONS: Home Medications Medication Instructions Recorded Escitalopram Oxalate [Lexapro -] 10 mg PO HS 11/16/17 Aspirin Coated [Ecotrin -] 81 mg PO DAILY tablet.ec 11/22/17 Clonazepam [Klonopin] 2 mg PO HS 11/17/18 Alprazolam [Xanax] 3 mg PO HS 11/18/18 Gabapentin 300 mg PO BID 11/22/18 Gabapentin [Neurontin] 600 mg PO HS 11/22/18 Divalproex *ER* [Depakote *ER* -] 1,500 mg PO HS tablet.sa 11/24/18 Acetaminophen 1,000 mg PO ASDIR PRN 11/25/18 Diphenhydramine [Benadryl -] 100 mg PO HS 11/25/18 Simvastatin 40 mg PO HS 11/25/18 Nicotine Patch [Nicoderm Patch -] 21 mg TD DAILY 12/02/18 REVIEW OF SYSTEMS CONSTITUTIONAL: Absent: fever, chills, diaphoresis, generalized weakness, malaise, loss of appetite, weight change HEENT: Absent: rhinorrhea, nasal congestion, throat pain, throat swelling, difficulty swallowing, mouth swelling, ear pain, eye pain, visual changes CARDIOVASCULAR: Absent: chest pain, syncope, palpitations, irregular heart rate, lightheadedness , peripheral edema RESPIRATORY: Absent: cough, shortness of breath, dyspnea with exertion, orthopnea, wheezing, stridor, hemoptysis GASTROINTESTINAL: Absent: abdominal pain, abdominal distension, nausea, vomiting, diarrhea, constipation, melena, hematochezia GENITOURINARY: Absent: dysuria, frequency, urgency, hesitancy, hematuria, flank pain, genital pain MUSCULOSKELETAL: +left wrist pain Absent: myalgia, arthralgia, joint swelling, back pain, neck pain SKIN: Absent: rash, itching, pallor HEMATOLOGIC/IMMUNOLOGIC: Absent: easy bleeding, easy bruising, lymphadenopathy, frequent infections ENDOCRINE: Absent: unexplained weight gain, unexplained weight loss, heat intolerance, cold intolerance NEUROLOGIC: +gait instability, Absent: headache, focal weakness or paresthesias, dizziness, seizure, mental status changes, bladder or bowel incontinence PSYCHIATRIC: +anxiety Absent: anxiety, depression, suicidal or homicidal ideation, hallucinations. PHYSICAL EXAMINATION Vital Signs Period Temp Pulse Resp BP Sys/Bhandari Pulse Ox Last 24 Hr 97.7 F-98.6 F 51-64 16-20 127-165/58-81 93-98 GENERAL: Awake, alert, and fully oriented, in no acute distress. HEAD: Normal with no signs of trauma. EYES: Pupils equal, round and reactive to light, extraocular movements intact, sclera anicteric, conjunctiva clear. No lid lag. EARS, NOSE, THROAT: Ears normal, nares patent, oropharynx clear without exudates. Moist mucous membranes. NECK: Normal range of motion, supple without lymphadenopathy, JVD, or masses. LUNGS: Breath sounds equal, clear to auscultation bilaterally. No wheezes, and no crackles. No accessory muscle use. HEART: Regular rate and rhythm, normal S1 and S2 without murmur, rub or gallop. ABDOMEN: Soft, nontender, not distended, normoactive bowel sounds, no guarding, no rebound, no masses. No hepatomegaly or splenomegaly. MUSCULOSKELETAL: Left wrist splinted UPPER EXTREMITIES: 2+ pulses, warm, well-perfused. No cyanosis. No clubbing. No peripheral edema. LOWER EXTREMITIES: 2+ pulses, warm, well-perfused. No calf tenderness. No peripheral edema. NEUROLOGICAL: Cranial nerves II-XII intact. Normal speech. R sided 4/5, L sided 5-/5, sensory intact PSYCHIATRIC: Cooperative. Good eye contact. Appropriate mood and affect. SKIN: Warm, dry, normal turgor, no rashes or lesions noted, normal capillary refill. Laboratory Results - last 24 hr 12/02/18 12/02/18 12/02/18 09:00 09:00 09:00 WBC 10.5 RBC 3.66 L Hgb 11.9 Hct 35.2 L MCV 96.0 MCH 32.4 MCHC 33.8 RDW 12.7 Plt Count 246 MPV 7.4 L Absolute Neuts (auto) 5.9 Neutrophils % No Result Required. Neutrophils % (Manual) 60.0 Lymphocytes % No Result Required. 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 Recently hospitalized 11/17-11/24/18 for frequent falls. Was scheduled for elective right hip replacement surgery with Dr. Holden. Reportedly fell at home and injured his left wrist. Following morning he fell again getting out of a shower chair and landed on his knees. Patient has had right-sided weakness since his CVA in November 2017 and now reported new left-sided weakness, upper and lower extremities, over the past two weeks. Xray left wrist showed nondisplaced impacted fracture distal left radius, CT head with subacute nonhemorrhagic infarct not seen on CT 11/17/18. Contacted by ER and surgery was put on hold. Admitted and completed MRI brain which did not show acute changes, old L parietal infarct noted. 2018 Echo: nl LV/RV size and function, nl LA size, mild MR, aortic sclerosis without sig stenosis, E/A reversal 11/2017 US carotids : no significant stenosis bilaterally. Can continue ASA, Statin, fall precautions. Monitor bp, maintain <140/90. Follow up Ortho, Dr. Holden regarding Fx.
--- NOTE | 2018-12-03 09:33 | PN ---
Progress Note (short form) - Note Progress Note: Ortho Pt seen and examined s/p left distal radius fx, awaiting right THR Selected Entries 12/03/18 05:00 Temperature 98.0 F Pulse Rate 64 Respiratory 19 Rate Blood Pressure 165/73 Laboratory Tests 12/02/18 09:00 WBC 10.5 Hgb 11.9 Hct 35.2 L Plt Count 246 left wrist- splint intact, nvi right hip- +ttp, decr rom, nvi a/p maintain splint left wrist, NWB strict elevation Right THR once cleared medically Tentatively re-scheduled for Saturday pending clearance d/w Dr. Holden
[2018-12-03] MEDS: ALBUTEROL SO4 2.5/IPRATROPIUM 0.5 INH SOL 3 ML VIAL.NEB. NEB SCH ×3 (09:57→20:03)
[2018-12-03] MEDS: ASPIRIN COATED 81 MG TABLET.EC PO SCH (09:58)
[2018-12-03] MEDS: NICOTINE 21 MG/24 HOURS TOPICAL PATCH TD SCH (09:58)
[2018-12-03] MEDS: GABAPENTIN 300 MG CAPSULE (FP) PO SCH ×3 (09:58→21:52)
--- NOTE | 2018-12-03 10:01 | PN ---
Physical Exam: SUBJECTIVE: Patient seen and examined at bedside. Cheerful. Feels "great". OBJECTIVE: Vital Signs Period Temp Pulse Resp BP Sys/Bhandari Pulse Ox Last 24 Hr 97.7 F-98.6 F 51-64 16-20 127-165/58-81 93-98 GENERAL: Awake, alert, and fully oriented, in no acute distress. LUNGS: Breath sounds equal, clear to auscultation bilaterally. No wheezes, and no crackles. No accessory muscle use. HEART: Regular rate and rhythm, S1 and S2 ABDOMEN: Soft, nontender, not distended MUSCULOSKELETAL: Left wrist splinted; fingers warm, well-perfused UPPER EXTREMITIES: 2+ pulses, warm, well-perfused. No cyanosis. No clubbing. No peripheral edema. LOWER EXTREMITIES: 2+ pulses, warm, well-perfused. No calf tenderness. No peripheral edema. 5/5 motor bilaterally; 5/5 sensory bilaterally; SLR 90 degrees on left, 60 degrees on right with right hip pain NEUROLOGICAL: Cranial nerves II-XII intact. Normal speech. Laboratory Results - last 24 hr 12/02/18 12/02/18 12/02/18 09:00 09:00 09:15 Neutrophils % (Manual) 60.0 Lymphocytes % (Manual) 27.0 Monocytes % (Manual) 9 Eosinophils % (Manual) 4.0 Platelet Estimate Adequate Urine Color Urine Appearance Urine pH Urine Protein Urine Glucose (UA) Urine Ketones Urine Blood Urine Nitrite Urine Bilirubin Urine Urobilinogen Ur Leukocyte Esterase Blood Type B POSITIVE B POSITIVE Antibody Screen Negative 12/02/18 12:30 Neutrophils % (Manual) Lymphocytes % (Manual) Monocytes % (Manual) Eosinophils % (Manual) Platelet Estimate Urine Color Yellow Urine Appearance Clear Urine pH 5.5 Urine Protein Negative Urine Glucose (UA) Negative Urine Ketones Negative Urine Blood Negative Urine Nitrite Negative Urine Bilirubin Negative Urine Urobilinogen 0.2 Ur Leukocyte Esterase Negative Blood Type Antibody Screen Active Medications Generic Name Dose Route Start Last Admin Trade Name Freq PRN Reason Stop Dose Admin Albuterol/Ipratropium 1 amp 12/02/18 20:00 12/03/18 09:57 Duoneb - NEB 1 amp RTID OSCAR Administration Alprazolam 3 mg 12/02/18 22:00 12/02/18 21:22 Xanax PO 3 mg HS OSCAR Administration Aspirin 81 mg 12/02/18 12:00 12/03/18 09:58 Ecotrin - PO 81 mg DAILY OSCAR Administration Atorvastatin Calcium 20 mg 12/02/18 22:00 12/02/18 21:21 Lipitor - PO 20 mg HS OSCAR Administration Clonazepam 2 mg 12/02/18 22:00 12/02/18 21:22 Klonopin - PO 2 mg HS OSCAR Administration Diphenhydramine HCl 100 mg 12/02/18 22:00 12/02/18 21:22 Benadryl - PO 100 mg HS OSCAR Administration Divalproex Sodium 1,500 mg 12/02/18 22:00 12/02/18 21:22 Depakote *Er* - PO 1,500 mg HS OSCAR Administration Escitalopram Oxalate 10 mg 12/02/18 22:00 12/02/18 21:30 Lexapro - PO 10 mg HS OSCAR Administration Gabapentin 300 mg 12/02/18 12:15 12/03/18 09:58 Neurontin - PO 300 mg BID OSCAR Administration Gabapentin 600 mg 12/02/18 22:00 12/02/18 21:21 Neurontin - PO 600 mg HS OSCAR Administration Nicotine 21 mg 12/02/18 13:20 12/03/18 09:58 Nicoderm Patch - TD 21 mg DAILY OSCAR Administration ASSESSMENT/PLAN 68 year-old male with a PMH significant for HTN, HLD, 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 Recently hospitalized 11/17-11/24/18 for frequent falls. Originally scheduled for elective right hip replacement surgery on 11/21 and was cleared for surgery by cardiology and pulmonology. Surgery was postponed, now scheduled for 12/05. Patient admitted with new left wrist fracture. Ruled out for new CVA. Left wrist fracture --Xray left wrist: nondisplaced impacted fracture distal left radius --splinted, no surgical intervention indicated CVA with residual right sided weakness, November 2017 --11/2017 Echo: nl LV/RV size and function, nl LA size, mild MR, aortic sclerosis without significant stenosis, E/A reversal --11/2017 US carotids: no significant stenosis bilaterally New subacute CVA ruled out --MRI shows no acute infarct --seen and evaluated by neuro Dr. Li; no acute process, no contraindication to surgery --continue statin; will hold ASA perioperatively Severe right hip degenerative disease --surgery scheduled for 12/05 --Dr. Holden following COPD Interstitial lung disease --chronic findings on chest CT --duonebs TID Hypertension --BP stable, not on meds Sinus bradycardia --asymptomatic, baseline Hyperlipidemia --continue Lipitor Prostate cancer --stable Bipolar spectrum disorder Anxiety --spoke with treating psychiatrist Dr. Nick Polanco ([phone]); patient on the bipolar spectrum; long history of substance abuse, remote; few hospitalizations with quasi-psychotic features; verified medications: Xanax 3mg qhs, clonazepam 2 to 4mg QHS, Benadryl 100mg QHS, depakote 1500mg QHS, lexapro 10mg daily --reviewed medication list with FEN Fluids: PO intake adequae Electrolytes: replete as indicated Nutrition: low sodium DVT prophylaxis: ASA 81mg; SCDs Physical therapy Dispo: continues to require inpatient care. Patient seen and evaluated for the planned surgery by cardiology, pulmonary, and neuro. Relative benefits of planned procedure outweights relative risks. Full code. Visit type - Emergency Visit Emergency Visit: Yes ED Registration Date: 12/02/18 Care time: The patient presented to the Emergency Department on the above date and was hospitalized for further evaluation of their emergent condition. - New Patient This patient is new to me today: No - Critical Care Critical Care patient: No
[2018-12-03] MEDS: diphenhydrAMINE HCL 25 MG CAPSULE (FP) PO SCH (21:42)
[2018-12-03] MEDS: DIVALPROEX NA *ER* EXTEND REL 500 MG TABLET.SA (FP) PO SCH (21:43)
[2018-12-03] MEDS: ATORVASTATIN CA 20 MG TABLET (FP) PO SCH (21:44)
[2018-12-03] MEDS: ESCITALOPRAM OXALATE 10 MG TABLET (FP) PO SCH (21:44)
[2018-12-03] MEDS: clonazePAM 2 MG TABLET PO SCH (21:45)
[2018-12-03] MEDS: ALPRAZolam 1 MG TABLET PO SCH (21:46)
--- NOTE | 2018-12-04 07:50 | PN ---
Physical Exam: SUBJECTIVE: Patient seen and examined oob to chair. OBJECTIVE: Vital Signs Period Temp Pulse Resp BP Sys/Bhandari Pulse Ox Last 24 Hr 97.5 F-98.8 F 55-82 18-20 97-152/62-72 92-94 GENERAL: Awake, alert, and fully oriented, in no acute distress. LUNGS: Breath sounds equal, clear to auscultation bilaterally. No wheezes, and no crackles. No accessory muscle use. HEART: Regular rate and rhythm, S1 and S2 ABDOMEN: Soft, nontender, not distended MUSCULOSKELETAL: Left wrist splinted; fingers warm, well-perfused UPPER EXTREMITIES: 2+ pulses, warm, well-perfused. No cyanosis. No clubbing. No peripheral edema. LOWER EXTREMITIES: 2+ pulses, warm, well-perfused. No calf tenderness. No peripheral edema. NEUROLOGICAL: Cranial nerves II-XII intact. Normal speech. Active Medications Generic Name Dose Route Start Last Admin Trade Name Freq PRN Reason Stop Dose Admin Albuterol/Ipratropium 1 amp 12/02/18 20:00 12/03/18 20:03 Duoneb - NEB 1 amp RTID OSCAR Administration Alprazolam 3 mg 12/02/18 22:00 12/03/18 21:46 Xanax PO 3 mg HS OSCAR Administration Aspirin 81 mg 12/02/18 12:00 12/03/18 09:58 Ecotrin - PO 81 mg DAILY OSCAR Administration Atorvastatin Calcium 20 mg 12/02/18 22:00 12/03/18 21:44 Lipitor - PO 20 mg HS OSCAR Administration Clonazepam 2 mg 12/02/18 22:00 12/03/18 21:45 Klonopin - PO 2 mg HS OSCAR Administration Diphenhydramine HCl 100 mg 12/02/18 22:00 12/03/18 21:42 Benadryl - PO 100 mg HS OSCAR Administration Divalproex Sodium 1,500 mg 12/02/18 22:00 12/03/18 21:43 Depakote *Er* - PO 1,500 mg HS OSCAR Administration Escitalopram Oxalate 10 mg 12/02/18 22:00 12/03/18 21:44 Lexapro - PO 10 mg HS OSCAR Administration Gabapentin 300 mg 12/02/18 12:15 12/03/18 21:45 Neurontin - PO 300 mg BID OSCAR Administration Gabapentin 600 mg 12/02/18 22:00 12/03/18 21:52 Neurontin - PO 600 mg HS OSCAR Administration Nicotine 21 mg 12/02/18 13:20 12/03/18 09:58 Nicoderm Patch - TD 21 mg DAILY OSCAR Administration ASSESSMENT/PLAN 68 year-old male with a PMH significant for HTN, HLD, 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 Recently hospitalized 11/17-11/24/18 for frequent falls. Originally scheduled for elective right hip replacement surgery on 11/21 and was cleared for surgery by cardiology and pulmonology. Surgery was postponed, now scheduled for 12/05. Patient admitted with new left wrist fracture. Ruled out for new CVA. Left wrist fracture --Xray left wrist: nondisplaced impacted fracture distal left radius --splinted, no surgical intervention indicated CVA with residual right sided weakness, November 2017 --11/2017 Echo: nl LV/RV size and function, nl LA size, mild MR, aortic sclerosis without significant stenosis, E/A reversal --11/2017 US carotids: no significant stenosis bilaterally New subacute CVA ruled out --MRI shows no acute infarct --seen and evaluated by neuro Dr. Li; no acute process, no contraindication to surgery --continue statin; hold ASA perioperatively Severe right hip degenerative disease --surgery scheduled for 12/05 --Dr. Holden following COPD Interstitial lung disease --chronic findings on chest CT --duonebs TID Hypertension --BP stable, not on meds Sinus bradycardia --asymptomatic, baseline Hyperlipidemia --continue Lipitor Prostate cancer --stable Bipolar spectrum disorder Anxiety --spoke with treating psychiatrist Dr. Nick Polanco ([phone]); patient on the bipolar spectrum; long history of substance abuse, remote; few hospitalizations with quasi-psychotic features; verified medications: Xanax 3mg qhs, clonazepam 2 to 4mg QHS, Benadryl 100mg QHS, depakote 1500mg QHS, lexapro 10mg daily --reviewed medication list with FEN Fluids: PO intake adequae Electrolytes: replete as indicated Nutrition: low sodium; NPO after midnight DVT prophylaxis: SCDs Physical therapy Dispo: continues to require inpatient care. Patient seen and evaluated for the planned surgery by cardiology, pulmonary, and neuro. Relative benefits of planned procedure outweighs relative risks. Full code. Visit type - Emergency Visit Emergency Visit: Yes ED Registration Date: 12/02/18 Care time: The patient presented to the Emergency Department on the above date and was hospitalized for further evaluation of their emergent condition. - New Patient This patient is new to me today: No - Critical Care Critical Care patient: No
[2018-12-04] MEDS: ALBUTEROL SO4 2.5/IPRATROPIUM 0.5 INH SOL 3 ML VIAL.NEB. NEB SCH ×3 (08:20→20:30)
--- NOTE | 2018-12-04 08:20 | PN ---
Progress Note (short form) - Note Progress Note: Ortho Pt seen and examined s/p left distal radius fx, awaiting right THR Selected Entries 12/04/18 06:00 Temperature 97.6 F Pulse Rate 55 L Respiratory 18 Rate Blood Pressure 122/67 left wrist- splint intact, nvi right hip- +ttp, decr rom, nvi a/p maintain splint left wrist, NWB strict elevation Right THR scheduled for tomorrow medically cleared NPO after midnight d/w Dr. Holden
[2018-12-04] MEDS: NICOTINE 21 MG/24 HOURS TOPICAL PATCH TD SCH (10:50)
[2018-12-04] MEDS: GABAPENTIN 300 MG CAPSULE (FP) PO SCH ×3 (10:50→21:30)
[2018-12-04] MEDS: ASPIRIN COATED 81 MG TABLET.EC PO SCH (10:50)
[2018-12-04] MEDS: clonazePAM 2 MG TABLET PO SCH (21:29)
[2018-12-04] MEDS: DIVALPROEX NA *ER* EXTEND REL 500 MG TABLET.SA (FP) PO SCH (21:29)
[2018-12-04] MEDS: diphenhydrAMINE HCL 25 MG CAPSULE (FP) PO SCH (21:29)
[2018-12-04] MEDS: ATORVASTATIN CA 20 MG TABLET (FP) PO SCH (21:30)
[2018-12-04] MEDS: ALPRAZolam 1 MG TABLET PO SCH (21:30)
[2018-12-04] MEDS: ESCITALOPRAM OXALATE 10 MG TABLET (FP) PO SCH (21:30)
[2018-12-05] MEDS ORDERED: PROPOFOL 20 ML ONE (08:25)
[2018-12-05] MEDS ORDERED: DESFLURANE GAS 240 ML BOTTLE IH ONE (08:32)
[2018-12-05] MEDS: ALBUTEROL SO4 2.5/IPRATROPIUM 0.5 INH SOL 3 ML VIAL.NEB. NEB SCH ×3 (08:50→20:06)
[2018-12-05] MEDS ORDERED: VANCOMYCIN 1,000 MG VIAL (RESTRICTED TO ID ONLY) ONE (08:55)
[2018-12-05] MEDS ORDERED: ceFAZolin SODIUM 1 GM VIAL ONE ×2 (08:55→11:10)
[2018-12-05] MEDS ORDERED: CEFAZOLIN 2 GM in DEXTROSE 5%-WATER - 50 ML IVPB ONE (09:13)
[2018-12-05] MEDS ORDERED: TRANEXAMIC ACID 1000 MG/10 ML VIAL IVPUSH ONE (09:13)
--- NOTE | 2018-12-05 09:23 | PN ---
Physical Exam: SUBJECTIVE: Patient seen and examined back from OR. Complaining of pain at surgical site. OBJECTIVE: Vital Signs Period Temp Pulse Resp BP Sys/Bhandari Pulse Ox Last 24 Hr 97.7 F-98.2 F 60-78 17-20 131-156/53-75 91-96 GENERAL: Awake, alert, and fully oriented LUNGS: Breath sounds equal, clear to auscultation bilaterally. No wheezes, and no crackles. No accessory muscle use. HEART: Regular rate and rhythm, S1 and S2 ABDOMEN: Soft, nontender, not distended MUSCULOSKELETAL: Left wrist splinted; fingers warm, well-perfused UPPER EXTREMITIES: 2+ pulses, warm, well-perfused. No cyanosis. No clubbing. No peripheral edema. LOWER EXTREMITIES: RIGHT: Two surgical dressings c/d/i; no surrounding erythema , warmth, fluctuance Active Medications Generic Name Dose Route Start Last Admin Trade Name Freq PRN Reason Stop Dose Admin Albuterol/Ipratropium 1 amp 12/02/18 20:00 12/04/18 20:30 Duoneb - NEB 1 amp RTID OSCAR Administration Alprazolam 3 mg 12/02/18 22:00 12/04/18 21:30 Xanax PO 3 mg HS OSCAR Administration Aspirin 81 mg 12/02/18 12:00 12/04/18 10:50 Ecotrin - PO 81 mg DAILY OSCAR Administration Atorvastatin Calcium 20 mg 12/02/18 22:00 12/04/18 21:30 Lipitor - PO 20 mg HS OSCAR Administration Clonazepam 2 mg 12/02/18 22:00 12/04/18 21:29 Klonopin - PO 2 mg HS OSCAR Administration Diphenhydramine HCl 100 mg 12/02/18 22:00 12/04/18 21:29 Benadryl - PO 100 mg HS OSCAR Administration Divalproex Sodium 1,500 mg 12/02/18 22:00 12/04/18 21:29 Depakote *Er* - PO 1,500 mg HS OSCAR Administration Escitalopram Oxalate 10 mg 12/02/18 22:00 12/04/18 21:30 Lexapro - PO 10 mg HS OSCAR Administration Gabapentin 300 mg 12/02/18 12:15 12/04/18 21:30 Neurontin - PO 300 mg BID OSCAR Administration Gabapentin 600 mg 12/02/18 22:00 12/04/18 21:30 Neurontin - PO 600 mg HS OSCAR Administration Cefazolin Sodium 2 gm/ 50 mls @ 100 mls/hr 12/05/18 09:13 Dextrose IVPB 12/05/18 09:42 ANES-PREOP ONE Nicotine 21 mg 12/02/18 13:20 12/04/18 10:50 Nicoderm Patch - TD 21 mg DAILY OSCAR Administration Tranexamic Acid 1,000 mg 12/05/18 09:13 Tranexamic Acid - IVPUSH 12/05/18 09:14 ONCE ONE ASSESSMENT/PLAN: 68 year-old male with a PMH significant for HTN, HLD, 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 Recently hospitalized 11/17-11/24/18 for frequent falls. Originally scheduled for elective right hip replacement surgery on 11/21 and was cleared for surgery by cardiology and pulmonology. Surgery was postponed, now scheduled for 12/05. Patient admitted with new left wrist fracture. Ruled out for new CVA. Severe right hip degenerative disease s/p right Ramiro total hip replacement --POD #0 --perioperative antibiotics per surgery --pain management per surgery --ASA 325mg daily per surgery --protonix --bowel regimen Left wrist fracture --Xray left wrist: nondisplaced impacted fracture distal left radius --casted in OR today CVA with residual right sided weakness, November 2017 --11/2017 Echo: nl LV/RV size and function, nl LA size, mild MR, aortic sclerosis without significant stenosis, E/A reversal --11/2017 US carotids: no significant stenosis bilaterally New subacute CVA ruled out --MRI shows no acute infarct --seen and evaluated by neuro Dr. Li; no acute process, no contraindication to surgery --continue statin; hold ASA perioperatively COPD Interstitial lung disease --chronic findings on chest CT --duonebs TID Hypertension --BP stable, not on meds Sinus bradycardia --asymptomatic, baseline Hyperlipidemia --continue Lipitor Prostate cancer --stable Bipolar spectrum disorder Anxiety --spoke with treating psychiatrist Dr. Nick Polanco ([phone]); patient on the bipolar spectrum; long history of substance abuse, remote; few hospitalizations with quasi-psychotic features; verified medications: Xanax 3mg qhs, clonazepam 2 to 4mg QHS, Benadryl 100mg QHS, depakote 1500mg QHS, lexapro 10mg daily --reviewed medication list with FEN Fluids: NS x 500mL x 1 Electrolytes: replete as indicated Nutrition: low sodium DVT prophylaxis: SCDs, ASA 325mg daily, oob, ambulation Physical therapy Dispo: continues to require inpatient care. Full code. Visit type - Emergency Visit Emergency Visit: Yes ED Registration Date: 12/02/18 Care time: The patient presented to the Emergency Department on the above date and was hospitalized for further evaluation of their emergent condition. - New Patient This patient is new to me today: No - Critical Care Critical Care patient: No
[2018-12-05] MEDS: GABAPENTIN 300 MG CAPSULE (FP) PO SCH ×3 (10:05→21:11)
[2018-12-05] MEDS: ASPIRIN COATED 81 MG TABLET.EC PO SCH (10:05)
[2018-12-05] MEDS ORDERED: LABETALOL HCL 5 MG/1 ML (100MG/20 ML VIAL) ONE (11:25)
[2018-12-05] MEDS ORDERED: MAGNESIUM HYDROX 2400MG/30ML ORAL SUSPENSION 30 ML CUP PO PRN (12:36)
[2018-12-05] MEDS ORDERED: MAG HYDROX/AL HYDROX/SIMETH 30 ML UNIT-DOSE CUP PO PRN (12:36)
--- NOTE | 2018-12-05 12:47 | OP ---
Operative Note - Note: Operative Date: 12/05/18 (manoj) Pre-Operative Diagnosis: right hip djd Operation: right marin thr Post-Operative Diagnosis: Same as Pre-op Surgeon: Noah Holden Registered Nurse Nursery: [facility] Anesthesia: Spinal, Local Specimens Removed: femoral head Estimated Blood Loss (mls): 100 Operative Report Dictated: Yes
[2018-12-05] MEDS ORDERED: oxyCODONE HCL 5 MG TABLET PO PRN (13:59)
[2018-12-05] MEDS: NICOTINE 21 MG/24 HOURS TOPICAL PATCH TD SCH (14:51)
[2018-12-05] MEDS: ACETAMINOPHEN 1000 MG/100 ML VIAL (NON FORMULARY) IVPB SCH ×2 (15:56→21:14)
[2018-12-05] MEDS ORDERED: SODIUM CHLORIDE 500 ML IV STA (17:55)
[2018-12-05] MEDS: CEFAZOLIN 2 GM/D5W 2 GM/50 ML ML IVPB SCH (18:16)
[2018-12-05] MEDS ORDERED: CEFAZOLIN 2 GM in DEXTROSE 5%-WATER - 50 ML IVPB SCH (19:00)
[2018-12-05] MEDS: oxyCODONE HCL 5 MG TABLET PO PRN (20:02)
[2018-12-05] MEDS: ESCITALOPRAM OXALATE 10 MG TABLET (FP) PO SCH (21:09)
[2018-12-05] MEDS: ATORVASTATIN CA 20 MG TABLET (FP) PO SCH (21:10)
[2018-12-05] MEDS: ALPRAZolam 1 MG TABLET PO SCH (21:10)
[2018-12-05] MEDS: clonazePAM 2 MG TABLET PO SCH (21:10)
[2018-12-05] MEDS: SENNOSIDES/DOCUSATE COMBO (SENNA PLUS) TABLET (UD) PO SCH (21:11)
[2018-12-05] MEDS: diphenhydrAMINE HCL 25 MG CAPSULE (FP) PO SCH (21:12)
[2018-12-05] MEDS: DIVALPROEX NA *ER* EXTEND REL 500 MG TABLET.SA (FP) PO SCH (21:12)
[2018-12-06] MEDS: oxyCODONE HCL 5 MG TABLET PO PRN (01:11)
[2018-12-06] MEDS: CEFAZOLIN 2 GM/D5W 2 GM/50 ML ML IVPB SCH ×2 (02:45→10:54)
[2018-12-06] MEDS: ACETAMINOPHEN 1000 MG/100 ML VIAL (NON FORMULARY) IVPB SCH ×2 (03:24→09:00)
[2018-12-06 08:33] LABS: HEMATOCRIT 29.2 % (35.4-49); HEMOGLOBIN 9.7 GM/dl (11.7-16.9); MCH 31.9 pg (25.7-33.7); MCHC 33.3 g/dl (32.0-35.9); MEAN CELL VOLUME 95.8 fl (80-96); MEAN PLT VOLUME 7.1 fl (7.5-11.1); PLATELET COUNT 221 K/MM3 (134-434); RBC 3.05 M/mm3 (4.00-5.60); RDW 13.1 % (11.9-15.9); WHITE BLOOD COUNT 12.6 K/mm3 (4.0-10.8)
--- NOTE | 2018-12-06 09:16 | SPEC ---
DATE OF OPERATION: 12/05/2018 PREOPERATIVE DIAGNOSIS: Degenerative joint disease, right hip. POSTOPERATIVE DIAGNOSIS: Degenerative joint disease, right hip. PROCEDURE PERFORMED: Right total hip replacement with robotic-assisted navigation (MAKOplasty). SURGICAL ATTENDING: Noah Holden MD TUB ATTENDANT: TRISTIN Suero ANESTHESIA: Regional and general. CLOSURE: A [place] total hip system with a 58 Press-Fit Trident II acetabular shell, a No. 10 Accolade II femoral stem, a 36-mm -2.5 ceramic femoral head, number 1 Vicryl for fascia, 0 and 2-0 subcutaneous, 3-0 Monocryl for subcuticular with skin glue, 4-0 undyed Vicryl for pin sites. ESTIMATED BLOOD LOSS: Less than 100 mL. COMPLICATIONS: None. CONDITION: To the recovery room in stable condition. DESCRIPTION OF PROCEDURE: The patient was taken to the operating room on December 05, 2018. General and regional anesthesia was administered by the anesthesiologist. IV Kefzol and TXA were administered prophylactically prior to the case. The patient was placed in the lateral decubitus position will all prominences well-padded. The right hip area was prepped and draped in the usual sterile fashion. Using 3 small stab incisions over the iliac crest, 3 threaded pins were drilled in power fashion through the 2 tables of the crest. These pins were fastened and the navigation array for the PADMAJA navigation system. Next, a 12- to 15-cm curved longitudinal incision over the posterolateral aspect of the greater trochanter was incised. Hemostasis was achieved with Bovie cautery. Sharp dissection was carried down to level of the fascia. The fascia was opened the entire length of the incision, spreading the fibers of the gluteus matty in the direction of origin. A Charnley retractor was placed in this layer. Care was taken not to impale the sciatic nerve. The short external rotators were detached off the insertion of the greater trochanter and peeled off the capsule. A posterior capsulotomy was then performed. A checkpoint was malleted into the greater trochanter and a point on the inferior pole of the patella was obtained as well. These 2 points were used to assess the preoperative offset and limb lengths of the hip. The hip was then dislocated. The femoral neck was then osteotomized down to the appropriate level as directed by the navigation device. Anterior and posterior retractors were placed, exposing the acetabulum. A circumferential labral excision was performed. A checkpoint was malleted into the acetabulum as well. Multiple sites inside the acetabulum and around the rim were utilized to register the acetabulum with the navigation device. An excellent registration of less than 0.5 mm was obtained. The hip was then reamed with the appropriate reamer down to the appropriate depth, with the appropriate orientation and version as assessed on our preoperative plan for this patient. The reamer was removed and the acetabulum was inspected to have good bleeding surfaces throughout. The real acetabular cup was then malleted down into place, with the holes in the appropriate position, until an excellent fixation was obtained. No screws were necessary. The navigation device ensured appropriate orientation and version, with the depth as predetermined. The appropriate liner was then clipped into place. Attention was directed to the femur. The proximal femur was prepared by use a box chisel, a canal finder and serial broaches until the broach achieved excellent rigidity in the proximal femur with the appropriate version being applied. A calcar planer was used to smooth off the calcar flush with the trial components. A trial reduction with the appropriate head was done, and the hip was reduced. The hip was taken through a range of motion from full extension with external rotation to marked flexion, and was stable at 90 degrees of flexion. It was stable to marked abduction and internal rotation, with a positive hang test and negative telescoping. Limb lengths were ascertained visually as well as with the navigation device to be within the targeted range for this patient. The trial component was removed. The real component was then malleted into place. The head was cold welded to the trunnion, and the hip was reduced. Range of motion, stability and limb lengths were as described in the trial component. Then the hip was pulse antibiotic irrigated. Vancomycin powder was placed in the hip joint. The capsule was closed. The fascia was then closed as well using number 1 Vicryl interrupted suture, 0 and 2-0 subcutaneous, and 3-0 Monocryl for the skin. Undyed 4-0 Vicryl was used to close the pin sites after the pins were removed. All checkpoints were also removed. Sterile Aquacel dressing was applied. The patient was awakened from anesthesia and transferred into the supine position. Bilateral SCDs and an abduction pillow were placed. X-rays revealed excellent position of the components. The patient was transferred to the recovery room in stable condition, with no complications. Estimated blood loss was less than 100 mL. Izzy [id number]
--- NOTE | 2018-12-06 09:44 | OP ---
DATE OF OPERATION: 12/05/2018 PREOPERATIVE DIAGNOSIS: Left distal radius fracture. POSTOPERATIVE DIAGNOSIS: Left distal radius fracture. PROCEDURE: Application of short-arm cast, left distal radius fracture. SURGICAL ATTENDING: Noah Holden MD CANDY POLISHER: TRISTIN Suero ANESTHESIA: IV sedation. DESCRIPTION OF OPERATIVE PROCEDURE: Patient was taken to the operating room on December 05, 2018, to undergo a right total hip replacement. We had known the patient also had a nondisplaced distal radius fracture. After the completion of the total hip replacement, we removed the splint that was on the left distal radius, and a well-padded short-arm cast was applied on the left distal radius while the patient was still under sedation from the total hip replacement. Patient was then awakened from anesthesia and transferred to recovery in stable condition. No complications. Estimated blood loss: Negligible. Izzy [id number]
--- NOTE | 2018-12-06 09:59 | PN ---
Physical Exam: SUBJECTIVE: Patient seen and examined, sleeping in recliner. NAD WBC 12.6 today will monitor afebrile. OBJECTIVE: Vital Signs Period Temp Pulse Resp BP Sys/Bhandari Pulse Ox Last 24 Hr 97.7 F-98.7 F 63-83 16-19 84-135/48-69 92-97 GENERAL: The patient is awake, alert, and fully oriented, in no acute distress. HEAD: Normal with no signs of trauma. EYES: PERRL, extraocular movements intact, sclera anicteric, conjunctiva clear. No ptosis. ENT: Ears normal, nares patent, oropharynx clear without exudates, moist mucous membranes. NECK: Trachea midline, full range of motion, supple. LUNGS: Breath sounds equal, clear to auscultation bilaterally, no wheezes, no crackles, no accessory muscle use. HEART: Regular rate and rhythm, S1, S2 without murmur, rub or gallop. ABDOMEN: Soft, nontender, nondistended, normoactive bowel sounds, no guarding, no rebound, no hepatosplenomegaly, no masses. EXTREMITIES: 2+ pulses, warm, well-perfused, no edema. NEUROLOGICAL: Cranial nerves II through XII grossly intact. Normal speech, gait not observed. PSYCH: Normal mood, normal affect. SKIN: Warm, dry, normal turgor, no rashes or lesions noted Laboratory Results - last 24 hr 12/06/18 07:50 WBC 12.6 H RBC 3.05 L Hgb 9.7 L Hct 29.2 L D MCV 95.8 MCH 31.9 MCHC 33.3 RDW 13.1 Plt Count 221 MPV 7.1 L Active Medications Generic Name Dose Route Start Last Admin Trade Name Freq PRN Reason Stop Dose Admin Al Hydroxide/Mg Hydroxide 30 ml 12/05/18 12:36 Mylanta Oral Suspension - PO Q4H PRN DYSPEPSIA Albuterol/Ipratropium 1 amp 12/02/18 20:00 12/05/18 20:06 Duoneb - NEB 1 amp RTID [facility] Administration Alprazolam 3 mg 12/02/18 22:00 12/05/18 21:10 Xanax PO 3 mg HS [facility] Administration Aspirin 325 mg 12/06/18 08:00 Asa - PO DAILY@0800 [facility] Atorvastatin Calcium 20 mg 12/02/18 22:00 12/05/18 21:10 Lipitor - PO 20 mg HS [facility] Administration Clonazepam 2 mg 12/02/18 22:00 12/05/18 21:10 Klonopin - PO 2 mg HS [facility] Administration Diphenhydramine HCl 100 mg 12/02/18 22:00 12/05/18 21:12 Benadryl - PO 100 mg HS [facility] Administration Divalproex Sodium 1,500 mg 12/02/18 22:00 12/05/18 21:12 Depakote *Er* - PO 1,500 mg HS [facility] Administration Escitalopram Oxalate 10 mg 12/02/18 22:00 12/05/18 21:09 Lexapro - PO 10 mg HS [facility] Administration Fentanyl 25 mcg 12/05/18 13:59 Sublimaze Injection - IVPUSH [id number] PRN PAIN-PACU ORDER X 4 DOSES ONLY Gabapentin 300 mg 12/02/18 12:15 12/05/18 21:11 Neurontin - PO 300 mg BID [facility] Administration Gabapentin 600 mg 12/02/18 22:00 12/05/18 21:11 Neurontin - PO 600 mg HS [facility] Administration Cefazolin Sodium/Dextrose 2 gm in 50 mls @ 100 mls/hr 12/05/18 19:00 02:45 Ancef 2 Gm Premixed Ivpb - IVPB 12/06/18 18:59 100 mls/hr Q8H [facility] Administration Magnesium Hydroxide 30 ml 12/05/18 12:36 Milk Of Magnesia - PO PRN PRN CONSTIPATION Multivitamins/Minerals/Vitamin C 1 tab 12/06/18 10:00 Tab-A-Vit - PO DAILY [facility] Nicotine 21 mg 12/02/18 13:20 12/05/18 14:51 Nicoderm Patch - TD 21 mg DAILY [facility] Administration Oxycodone HCl 10 mg 12/05/18 17:50 12/06/18 01:11 Roxicodone - PO 10 mg Q6H PRN Administration PAIN LEVEL 6-10 Pantoprazole Sodium 40 mg 12/06/18 10:00 Protonix - PO DAILY [facility] Senna/Docusate Sodium 2 tablet 12/05/18 22:00 12/05/18 21:11 Pericolace - PO 2 tablet BID [facility] Administration ASSESSMENT/PLAN: 68 year-old male with a PMH significant for HTN, HLD, 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 Recently hospitalized 11/17-11/24/18 for frequent falls. Originally scheduled for elective right hip replacement surgery on 11/21 and was cleared for surgery by cardiology and pulmonology. Surgery was postponed, now scheduled for 12/05. Patient admitted with new left wrist fracture. Ruled out for new CVA. Severe right hip degenerative disease s/p right Ramiro total hip replacement --POD #1 --perioperative antibiotics per surgery --pain management per surgery --ASA 325mg daily per surgery --protonix --bowel regimen Left wrist fracture --Xray left wrist: nondisplaced impacted fracture distal left radius --casted in OR today CVA with residual right sided weakness, November 2017 --11/2017 Echo: nl LV/RV size and function, nl LA size, mild MR, aortic sclerosis without significant stenosis, E/A reversal --11/2017 US carotids: no significant stenosis bilaterally New subacute CVA ruled out --MRI shows no acute infarct --seen and evaluated by neuro Dr. Li; no acute process, no contraindication to surgery --continue statin; hold ASA perioperatively COPD Interstitial lung disease --chronic findings on chest CT --duonebs TID Hypertension --BP stable, not on meds Sinus bradycardia --asymptomatic, baseline Hyperlipidemia --continue Lipitor Prostate cancer --stable Bipolar spectrum disorder Anxiety --spoke with treating psychiatrist Dr. Nick Polanco ([phone]); patient on the bipolar spectrum; long history of substance abuse, remote; few hospitalizations with quasi-psychotic features; --verified medications: Xanax 3mg qhs, clonazepam 2 to 4mg QHS, Benadryl 100mg QHS, depakote 1500mg QHS, lexapro 10mg daily FEN Fluids: NS x 500mL x 1 Electrolytes: replete as indicated Nutrition: low sodium DVT prophylaxis: SCDs, ASA 325mg daily, oob, ambulation Physical therapy Dispo: continues to require inpatient care. Full code. Visit type - Emergency Visit Emergency Visit: Yes ED Registration Date: 12/02/18 Care time: The patient presented to the Emergency Department on the above date and was hospitalized for further evaluation of their emergent condition. - New Patient This patient is new to me today: No - Critical Care Critical Care patient: No
[2018-12-06] MEDS: NICOTINE 21 MG/24 HOURS TOPICAL PATCH TD SCH (10:00)
[2018-12-06] MEDS: ASPIRIN 325 MG TABLET PO SCH (10:33)
[2018-12-06] MEDS: SENNOSIDES/DOCUSATE COMBO (SENNA PLUS) TABLET (UD) PO SCH ×2 (10:34→21:51)
[2018-12-06] MEDS: PANTOPRAZOLE 40 MG TABLET (FP) PO SCH (10:34)
[2018-12-06] MEDS: MULTIVITAMINS (DAILY MVI) TABLET (FP) PO SCH (10:34)
[2018-12-06] MEDS: GABAPENTIN 300 MG CAPSULE (FP) PO SCH ×3 (10:34→21:51)
[2018-12-06] MEDS: ALBUTEROL SO4 2.5/IPRATROPIUM 0.5 INH SOL 3 ML VIAL.NEB. NEB SCH ×3 (16:42→20:00)
[2018-12-06] MEDS: diphenhydrAMINE HCL 25 MG CAPSULE (FP) PO SCH (21:51)
[2018-12-06] MEDS: ALPRAZolam 1 MG TABLET PO SCH (21:52)
[2018-12-06] MEDS: ATORVASTATIN CA 20 MG TABLET (FP) PO SCH (21:52)
[2018-12-06] MEDS: ESCITALOPRAM OXALATE 10 MG TABLET (FP) PO SCH (21:52)
[2018-12-06] MEDS: clonazePAM 2 MG TABLET PO SCH (21:52)
[2018-12-06] MEDS: DIVALPROEX NA *ER* EXTEND REL 500 MG TABLET.SA (FP) PO SCH (21:57)
[2018-12-07] MEDS: oxyCODONE HCL 5 MG TABLET PO PRN (02:08)
--- NOTE | 2018-12-07 09:10 | PN ---
Progress Note (short form) - Note Progress Note: AVSS COMFORTABLE BANDAGES DRY AND INTACT CALF SOFT AND NT NVI LABS WNL IMP: DOING WELL PLAN: OOB WITH ASSISTANCE, PT - WBAT WITH HIP PRECAUTIONS. DC TO SNF TOMORROW
[2018-12-07 09:33] LABS: ALBUMIN 2.3 g/dl (3.4-5.0); BILIRUBIN,TOTAL 0.9 mg/dl (0.2-1); CALCIUM 8.1 mg/dl (8.5-10); CREATININE 1.2 mg/dl (0.55-1.3); POTASSIUM 4.1 mmol/L (3.5-5.1); TOT PROT 5.4 g/dl (6.4-8.2)
[2018-12-07 09:40] LABS: HEMATOCRIT 27.2 % (35.4-49); HEMOGLOBIN 9.1 GM/dl (11.7-16.9); MCHC 33.3 g/dl (32.0-35.9); MEAN CELL VOLUME 96.1 fl (80-96); MEAN PLT VOLUME 7.7 fl (7.5-11.1); PLATELET COUNT 196 K/MM3 (134-434); RBC 2.83 M/mm3 (4.00-5.60); RDW 13.6 % (11.9-15.9); WHITE BLOOD COUNT 14.9 K/mm3 (4.0-10.8)
[2018-12-07] MEDS: ALBUTEROL SO4 2.5/IPRATROPIUM 0.5 INH SOL 3 ML VIAL.NEB. NEB SCH ×3 (10:05→21:44)
[2018-12-07] MEDS: SENNOSIDES/DOCUSATE COMBO (SENNA PLUS) TABLET (UD) PO SCH ×2 (10:06→21:45)
[2018-12-07] MEDS: MULTIVITAMINS (DAILY MVI) TABLET (FP) PO SCH (10:07)
[2018-12-07] MEDS: NICOTINE 21 MG/24 HOURS TOPICAL PATCH TD SCH (10:07)
[2018-12-07] MEDS: PANTOPRAZOLE 40 MG TABLET (FP) PO SCH (10:07)
[2018-12-07] MEDS: GABAPENTIN 300 MG CAPSULE (FP) PO SCH ×3 (10:07→21:45)
[2018-12-07] MEDS: ASPIRIN 325 MG TABLET PO SCH (10:07)
--- NOTE | 2018-12-07 11:50 | PN ---
Physical Exam: SUBJECTIVE: Patient seen and examined pt seen at bedside, asleep most of time worked with PT today WBC 14.9, afebrile, no cough, CTA, OBJECTIVE: Vital Signs Period Temp Pulse Resp BP Sys/Bhandari Pulse Ox Last 24 Hr 97.6 F-99.2 F 71-91 18-19 111-148/37-66 93-96 GENERAL: The patient is awake, alert, and fully oriented, in no acute distress. HEAD: Normal with no signs of trauma. EYES: PERRL, extraocular movements intact, sclera anicteric, conjunctiva clear. No ptosis. ENT: Ears normal, nares patent, oropharynx clear without exudates, moist mucous membranes. NECK: Trachea midline, full range of motion, supple. LUNGS: Breath sounds equal, clear to auscultation bilaterally, no wheezes, no crackles, no accessory muscle use. HEART: Regular rate and rhythm, S1, S2 without murmur, rub or gallop. ABDOMEN: Soft, nontender, nondistended, normoactive bowel sounds, no guarding, no rebound, no hepatosplenomegaly, no masses. EXTREMITIES: 2+ pulses, warm, well-perfused, no edema. NEUROLOGICAL: Cranial nerves II through XII grossly intact. Normal speech, gait not observed. PSYCH: Normal mood, normal affect. SKIN: Warm, dry, normal turgor, no rashes or lesions noted Laboratory Results - last 24 hr 12/07/18 12/07/18 06:50 06:50 WBC 14.9 H RBC 2.83 L Hgb 9.1 L Hct 27.2 L MCV 96.1 H MCH 32.0 MCHC 33.3 RDW 13.6 Plt Count 196 MPV 7.7 Sodium 138 Potassium 4.1 Chloride 105 Carbon Dioxide 25 Anion Gap 8 BUN 22.0 H Creatinine 1.2 Est GFR (CKD-EPI)AfAm 71.08 Est GFR (CKD-EPI)NonAf 61.33 Random Glucose 125 H Calcium 8.1 L Total Bilirubin 0.9 AST 38 H ALT 14 Alkaline Phosphatase 84 Total Protein 5.4 L Albumin 2.3 L Active Medications Generic Name Dose Route Start Last Admin Trade Name Freq PRN Reason Stop Dose Admin Al Hydroxide/Mg Hydroxide 30 ml 12/05/18 12:36 Mylanta Oral Suspension - PO Q4H PRN DYSPEPSIA Albuterol/Ipratropium 1 amp 12/02/18 20:00 12/07/18 10:05 Duoneb - NEB Not Given RTID OSCAR Alprazolam 3 mg 12/02/18 22:00 12/06/18 21:52 Xanax PO 3 mg HS OSCAR Administration Aspirin 325 mg 12/06/18 08:00 12/07/18 10:07 Asa - PO 325 mg DAILY@0800 O[facility] Administration Atorvastatin Calcium 20 mg 12/02/18 22:00 12/06/18 21:52 Lipitor - PO 20 mg HS OSCAR Administration Clonazepam 2 mg 12/02/18 22:00 12/06/18 21:52 Klonopin - PO 2 mg HS OSCAR Administration Diphenhydramine HCl 100 mg 12/02/18 22:00 12/06/18 21:51 Benadryl - PO 100 mg HS OSCAR Administration Divalproex Sodium 1,500 mg 12/02/18 22:00 12/06/18 21:57 Depakote *Er* - PO 1,500 mg HS [facility] Administration Escitalopram Oxalate 10 mg 12/02/18 22:00 12/06/18 21:52 Lexapro - PO 10 mg HS [facility] Administration Fentanyl 25 mcg 12/05/18 13:59 Sublimaze Injection - IVPUSH [id number] PRN PAIN-PACU ORDER X 4 DOSES ONLY Gabapentin 300 mg 12/02/18 12:15 12/07/18 10:07 Neurontin - PO 300 mg BID [facility] Administration Gabapentin 600 mg 12/02/18 22:00 12/06/18 21:51 Neurontin - PO 600 mg HS OSCAR Administration Magnesium Hydroxide 30 ml 12/05/18 12:36 Milk Of Magnesia - PO PRN PRN CONSTIPATION Multivitamins/Minerals/Vitamin C 1 tab 12/06/18 10:00 12/07/18 10:07 Tab-A-Vit - PO 1 tab DAILY [facility] Administration Nicotine 21 mg 12/02/18 13:20 12/07/18 10:07 Nicoderm Patch - TD 21 mg DAILY [facility] Administration Oxycodone HCl 10 mg 12/05/18 17:50 12/07/18 02:08 Roxicodone - PO 10 mg Q6H PRN Administration PAIN LEVEL 6-10 Pantoprazole Sodium 40 mg 12/06/18 10:00 12/07/18 10:07 Protonix - PO 40 mg DAILY [facility] Administration Senna/Docusate Sodium 2 tablet 12/05/18 22:00 12/07/18 10:06 Pericolace - PO 2 tablet BID OSCAR Administration ASSESSMENT/PLAN: 68 year-old male with a PMH significant for HTN, HLD, 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 Recently hospitalized 11/17-11/24/18 for frequent falls. Originally scheduled for elective right hip replacement surgery on 11/21 and was cleared for surgery by cardiology and pulmonology. Surgery was postponed, now scheduled for 12/05. Patient admitted with new left wrist fracture. Ruled out for new CVA. Severe right hip degenerative disease s/p right Ramiro total hip replacement --POD #3 --perioperative antibiotics per surgery --pain management per surgery --ASA 325mg daily per surgery --protonix --bowel regimen Leukocytosis-reactive postop? --clinical symptoms --completed IV abt as per sx --monitor for now, no abt Left wrist fracture --Xray left wrist: nondisplaced impacted fracture distal left radius --casted in OR today CVA with residual right sided weakness, November 2017 --11/2017 Echo: nl LV/RV size and function, nl LA size, mild MR, aortic sclerosis without significant stenosis, E/A reversal --11/2017 US carotids: no significant stenosis bilaterally New subacute CVA ruled out --MRI shows no acute infarct --seen and evaluated by neuro Dr. Li; no acute process, no contraindication to surgery --continue statin; hold ASA perioperatively COPD Interstitial lung disease --chronic findings on chest CT --duonebs TID Hypertension --BP stable, not on meds Sinus bradycardia --asymptomatic, baseline Hyperlipidemia --continue Lipitor Prostate cancer --stable Bipolar spectrum disorder Anxiety --spoke with treating psychiatrist Dr. Nick Polanco ([phone]); patient on the bipolar spectrum; long history of substance abuse, remote; few hospitalizations with quasi-psychotic features; --verified medications: Xanax 3mg qhs, clonazepam 2 to 4mg QHS, Benadryl 100mg QHS, depakote 1500mg QHS, lexapro 10mg daily FEN Fluids: NS x 500mL x 1 Electrolytes: replete as indicated Nutrition: low sodium DVT prophylaxis: SCDs, ASA 325mg daily, oob, ambulation Physical therapy Dispo: continues to require inpatient care. Full code. Visit type - Emergency Visit Emergency Visit: Yes ED Registration Date: 12/02/18 Care time: The patient presented to the Emergency Department on the above date and was hospitalized for further evaluation of their emergent condition. - New Patient This patient is new to me today: No - Critical Care Critical Care patient: No
[2018-12-07] MEDS: ALPRAZolam 1 MG TABLET PO SCH (21:45)
[2018-12-07] MEDS: clonazePAM 2 MG TABLET PO SCH (21:45)
[2018-12-07] MEDS: ESCITALOPRAM OXALATE 10 MG TABLET (FP) PO SCH (21:45)
[2018-12-07] MEDS: ATORVASTATIN CA 20 MG TABLET (FP) PO SCH (21:45)
[2018-12-07] MEDS: DIVALPROEX NA *ER* EXTEND REL 500 MG TABLET.SA (FP) PO SCH (22:15)
[2018-12-07] MEDS: diphenhydrAMINE HCL 25 MG CAPSULE (FP) PO SCH (22:15)
--- NOTE | 2018-12-08 08:15 | PN ---
Progress Note (short form) - Note Progress Note: Ortho Pt seen and examined s/p left distal radius fx, s/p right thr pod #3 Selected Entries 12/08/18 06:00 Temperature 98.1 F Pulse Rate 72 Respiratory 20 Rate Blood Pressure 112/60 Laboratory Tests 12/07/18 06:50 WBC 14.9 H Hgb 9.1 L Hct 27.2 L Plt Count 196 left wrist- splint intact, nvi right hip- dressing c/d/i, calf soft, nt, nvi a/p PT hip precautions dvt ppx pain control ok to d/c from ortho pov d/c planning
[2018-12-08] MEDS: ASPIRIN 325 MG TABLET PO SCH (09:22)
[2018-12-08] MEDS: NICOTINE 21 MG/24 HOURS TOPICAL PATCH TD SCH (09:22)
[2018-12-08] MEDS: SENNOSIDES/DOCUSATE COMBO (SENNA PLUS) TABLET (UD) PO SCH (09:23)
[2018-12-08] MEDS: ALBUTEROL SO4 2.5/IPRATROPIUM 0.5 INH SOL 3 ML VIAL.NEB. NEB SCH (09:23)
[2018-12-08] MEDS: PANTOPRAZOLE 40 MG TABLET (FP) PO SCH (09:23)
[2018-12-08] MEDS: MULTIVITAMINS (DAILY MVI) TABLET (FP) PO SCH (09:25)
--- NOTE | 2018-12-08 09:47 | PN ---
Progress Note, Physician - Current Medication List Current Medications: Active Medications Al Hydroxide/Mg Hydroxide (Mylanta Oral Suspension -) 30 ml PO Q4H PRN PRN Reason: DYSPEPSIA Albuterol/Ipratropium (Duoneb -) 1 amp NEB RTID [facility] Last Admin: 12/08/18 09:23 Dose: Not Given Alprazolam (Xanax) 3 mg PO [facility] Last Admin: 12/07/18 21:45 Dose: 3 mg Aspirin (Asa -) 325 mg PO DAILY@0800 [facility] Last Admin: 12/08/18 09:22 Dose: 325 mg Atorvastatin Calcium (Lipitor -) 20 mg PO [facility] Last Admin: 12/07/18 21:45 Dose: 20 mg Clonazepam (Klonopin -) 2 mg PO [facility] Last Admin: 12/07/18 21:45 Dose: 2 mg Diphenhydramine HCl (Benadryl -) 100 mg PO [facility] Last Admin: 12/07/18 22:15 Dose: 100 mg Divalproex Sodium (Depakote *Er* -) 1,500 mg PO [facility] Last Admin: 12/07/18 22:15 Dose: 1,500 mg Escitalopram Oxalate (Lexapro -) 10 mg PO [facility] Last Admin: 12/07/18 21:45 Dose: 10 mg Fentanyl (Sublimaze Injection -) 25 mcg IVPUSH [id number] PRN PRN Reason: PAIN-PACU ORDER X 4 DOSES ONLY Gabapentin (Neurontin -) 300 mg PO BID [facility] Last Admin: 12/07/18 21:45 Dose: 300 mg Gabapentin (Neurontin -) 600 mg PO [facility] Last Admin: 12/07/18 21:45 Dose: 600 mg Magnesium Hydroxide (Milk Of Magnesia -) 30 ml PO PRN PRN PRN Reason: CONSTIPATION Multivitamins/Minerals/Vitamin C (Tab-A-Vit -) 1 tab PO DAILY [facility] Last Admin: 12/08/18 09:25 Dose: 1 tab Nicotine (Nicoderm Patch -) 21 mg TD DAILY [facility] Last Admin: 12/08/18 09:22 Dose: 21 mg Oxycodone HCl (Roxicodone -) 10 mg PO Q6H PRN PRN Reason: PAIN LEVEL 6-10 Last Admin: 12/07/18 02:08 Dose: 10 mg Pantoprazole Sodium (Protonix -) 40 mg PO DAILY [facility] Last Admin: 12/08/18 09:23 Dose: 40 mg Senna/Docusate Sodium (Pericolace -) 2 tablet PO BID [facility] Last Admin: 12/08/18 09:23 Dose: 2 tablet - Objective Vital Signs: Vital Signs Temperature 98.1 F 12/08/18 06:00 Pulse Rate 72 12/08/18 06:00 Respiratory Rate 20 12/08/18 06:00 Blood Pressure 112/60 12/08/18 06:00 O2 Sat by Pulse Oximetry (%) 97 12/08/18 06:00 Labs: CBC, BMP 12/07/18 06:50 12/07/18 06:50 INR, PTT INR 1.14 (0.82-1.09) 12/02/18 09:00
[2018-12-08] MEDS: GABAPENTIN 300 MG CAPSULE (FP) PO SCH (10:00)
[2018-12-08 12:06] LABS: ALBUMIN 2.1 g/dl (3.4-5.0); BILIRUBIN,TOTAL 0.9 mg/dl (0.2-1); CREATININE 1.1 mg/dl (0.55-1.3); MAGNESIUM 2.1 mg/dL (1.8-2.4); POTASSIUM 3.5 mmol/L (3.5-5.1); TOT PROT 5.5 g/dl (6.4-8.2)
[2018-12-08 12:11] LABS: HEMATOCRIT 26.4 % (35.4-49); MCH 32.6 pg (25.7-33.7); MCHC 34.3 g/dl (32.0-35.9); MEAN CELL VOLUME 95.1 fl (80-96); MEAN PLT VOLUME 7.5 fl (7.5-11.1); PLATELET COUNT 218 K/MM3 (134-434); RBC 2.77 M/mm3 (4.00-5.60); WHITE BLOOD COUNT 11.7 K/mm3 (4.0-10.8)
--- NOTE | 2018-12-08 12:26 | DS ---
Physical Exam: SUBJECTIVE: Patient seen and examined OBJECTIVE: Vital Signs Period Temp Pulse Resp BP Sys/Bhandari Pulse Ox Last 24 Hr 97.5 F-99.0 F 70-87 17-20 110-152/56-64 91-99 PHYSICAL EXAM GENERAL: The patient is awake, alert, and fully oriented, in no acute distress. HEAD: Normal with no signs of trauma. EYES: PERRL, extraocular movements intact, sclera anicteric, conjunctiva clear. No ptosis. ENT: Ears normal, nares patent, oropharynx clear without exudates, moist mucous membranes. NECK: Trachea midline, full range of motion, supple. LUNGS: Breath sounds equal, clear to auscultation bilaterally, no wheezes, no crackles, no accessory muscle use. HEART: Regular rate and rhythm, S1, S2 without murmur, rub or gallop. ABDOMEN: Soft, nontender, nondistended, normoactive bowel sounds, no guarding, no rebound, no hepatosplenomegaly, no masses. EXTREMITIES: 2+ pulses, warm, well-perfused, no edema. NEUROLOGICAL: Cranial nerves II through XII grossly intact. Normal speech, gait not observed. PSYCH: Normal mood, normal affect. SKIN: Warm, dry, normal turgor, no rashes or lesions noted LABS Laboratory Results - last 24 hr 12/08/18 10:25 WBC 11.7 H RBC 2.77 L Hgb 9.0 L Hct 26.4 L MCV 95.1 MCH 32.6 MCHC 34.3 RDW 13.0 Plt Count 218 MPV 7.5 Absolute Neuts (auto) 7.9 Neutrophils % No Result Required. Lymphocytes % No Result Required. 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 Recently hospitalized 11/17-11/24/18 for frequent falls. Originally scheduled for elective right hip replacement surgery on 11/21 and was cleared for surgery by cardiology and pulmonology. Surgery was postponed, now scheduled for 12/05. Patient admitted with new left wrist fracture. Ruled out for new CVA. Severe right hip degenerative disease s/p right Ramiro total hip replacement --POD #4 --complete IV antibiotc course --Pain well controlled oxycodone 10 mg q6 hours, may continue at rehab --ASA 325mg daily for DVT prophylaxis --protonix during hospital stay , continue on discharge --bowel regimen during hospital stay , continue on discharge while on narcotics Leukocytosis-reactive postop --no clinical symptoms of infection --completed IV antibiotics Left wrist fracture --Xray left wrist: nondisplaced impacted fracture distal left radius --casted during Hip surgery CVA with residual right sided weakness, November 2017 --11/2017 Echo: nl LV/RV size and function, nl LA size, mild MR, aortic sclerosis without significant stenosis, E/A reversal --11/2017 US carotids: no significant stenosis bilaterally --continue with PT New subacute CVA ruled out --MRI shows no acute infarct --seen and evaluated by neuro Dr. Li; no acute process, no contraindication to surgery --continue statin; hold ASA perioperatively COPD Interstitial lung disease --chronic findings on chest CT Hypertension --BP stable, not on meds Sinus bradycardia --asymptomatic, baseline Hyperlipidemia --continue Lipitor Prostate cancer --stable Bipolar spectrum disorder Anxiety --spoke with treating psychiatrist Dr. Nick Polanco ([phone]); patient on the bipolar spectrum; long history of substance abuse, remote; few hospitalizations with quasi-psychotic features; --verified medications: Xanax 3mg qhs, clonazepam 2 to 4mg QHS, Benadryl 100mg QHS, depakote 1500mg QHS, lexapro 10mg daily FEN Fluids: NS x 500mL x 1 Electrolytes: replete as indicated Nutrition: low sodium DVT prophylaxis: SCDs, ASA 325mg daily, oob, ambulation Physical therapy Dispo: discharge to in patient rehab Post-op Instructions-Total Hip Replacement Call the office for a follow-up appointment in 1 week - [phone] Aspirin 325mg daily for 6 weeks. Pain medication was sent into your pharmacy. Apply Graduated Compression Stockings (TEDs) to both lower extremities- remove daily for hygiene ONLY Apply Sequential Compression Device (SCDs) to both Lower extremities remove for PT and hygiene ONLY Apply cold packs to affected area for 15 minutes every 2 hours. Physical Therapist will come to your home for the first 5 days. You will be set up with outpatient PT at your first post-operative visit. Patient may ambulate as tolerated-encourage self care (at least every 2-3 hours while awake) with walker or cane Maintain Aquacel (waterproof) dressing to operative wound (will be removed by surgeon at first office visit) Shower with Aquacel dressing in place-if Aquacel integrity compromised, remove and apply dry sterile dressing and notify Orthopedist. DO NOT SHOWER unless Orthopedists approves without Aquacel dressing Keep cast intact and dry. Non- weight bearing on left wrist. CONTACT THE OFFICE FOR ANY CHANGE IN YOUR CONDITION (for example-fever greater than 102 degrees, excessive bleeding from operative site, purulent drainage, severe swelling or pain) GO TO THE EMERGENCY ROOM IF THERE IS A MEDICAL EMERGENCY Hip Precautions: * Keep a rolled towel under affected heel while in bed or chair (to keep knee in extension) * Dependent upon approach: * Posterior - do not cross legs; do not sit on low chairs or toilets. * If you have any questions, please do not hesitate to call the office - . 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 Recently hospitalized 11/17-11/24/18 for frequent falls. Originally scheduled for elective right hip replacement surgery on 11/21 and was cleared for surgery by cardiology and pulmonology. Surgery was postponed, now scheduled for 12/05. Patient admitted with new left wrist fracture. Ruled out for new CVA. Severe right hip degenerative disease s/p right Ramiro total hip replacement --POD #4 --complete IV antibiotc course --Pain well controlled oxycodone 10 mg q6 hours, may continue at rehab --ASA 325mg daily for DVT prophylaxis --protonix during hospital stay , continue on discharge --bowel regimen during hospital stay , continue on discharge while on narcotics Leukocytosis-reactive postop --no clinical symptoms of infection --completed IV antibiotics Left wrist fracture --Xray left wrist: nondisplaced impacted fracture distal left radius --casted during Hip surgery CVA with residual right sided weakness, November 2017 --11/2017 Echo: nl LV/RV size and function, nl LA size, mild MR, aortic sclerosis without significant stenosis, E/A reversal --11/2017 US carotids: no significant stenosis bilaterally --continue with PT New subacute CVA ruled out --MRI shows no acute infarct --seen and evaluated by neuro Dr. Li; no acute process, no contraindication to surgery --continue statin; hold ASA perioperatively COPD Interstitial lung disease --chronic findings on chest CT Hypertension --BP stable, not on meds Sinus bradycardia --asymptomatic, baseline Hyperlipidemia --continue Lipitor Prostate cancer --stable Bipolar spectrum disorder Anxiety --spoke with treating psychiatrist Dr. Nick Polanco ([phone]); patient on the bipolar spectrum; long history of substance abuse, remote; few hospitalizations with quasi-psychotic features; --verified medications: Xanax 3mg qhs, clonazepam 2 to 4mg QHS, Benadryl 100mg QHS, depakote 1500mg QHS, lexapro 10mg daily FEN Fluids: NS x 500mL x 1 Electrolytes: replete as indicated Nutrition: low sodium DVT prophylaxis: SCDs, ASA 325mg daily, oob, ambulation Physical therapy Dispo: discharge to in patient rehab Post-op Instructions-Total Hip Replacement Call the office for a follow-up appointment in 1 week - [phone] Aspirin 325mg daily for 6 weeks. Pain medication was sent into your pharmacy. Apply Graduated Compression Stockings (TEDs) to both lower extremities- remove daily for hygiene ONLY Apply Sequential Compression Device (SCDs) to both Lower extremities remove for PT and hygiene ONLY Apply cold packs to affected area for 15 minutes every 2 hours. Physical Therapist will come to your home for the first 5 days. You will be set up with outpatient PT at your first post-operative visit. Patient may ambulate as tolerated-encourage self care (at least every 2-3 hours while awake) with walker or cane Maintain Aquacel (waterproof) dressing to operative wound (will be removed by surgeon at first office visit) Shower with Aquacel dressing in place-if Aquacel integrity compromised, remove and apply dry sterile dressing and notify Orthopedist. DO NOT SHOWER unless Orthopedists approves without Aquacel dressing Keep cast intact and dry. Non- weight bearing on left wrist. CONTACT THE OFFICE FOR ANY CHANGE IN YOUR CONDITION (for example-fever greater than 102 degrees, excessive bleeding from operative site, purulent drainage, severe swelling or pain) GO TO THE EMERGENCY ROOM IF THERE IS A MEDICAL EMERGENCY Hip Precautions: * Keep a rolled towel under affected heel while in bed or chair (to keep knee in extension) * Dependent upon approach: * Posterior - do not cross legs; do not sit on low chairs or toilets. * If you have any questions, please do not hesitate to call the office - [phone]. Condition: Improved - Instructions Diet, Activity, Other Instructions: Post-op Instructions-Total Hip Replacement Call the office for a follow-up appointment in 1 week - [phone] Aspirin 325mg daily for 6 weeks. Pain medication was sent into your pharmacy. Apply Graduated Compression Stockings (TEDs) to both lower extremities- remove daily for hygiene ONLY Apply Sequential Compression Device (SCDs) to both Lower extremities remove for PT and hygiene ONLY Apply cold packs to affected area for 15 minutes every 2 hours. Physical Therapist will come to your home for the first 5 days. You will be set up with outpatient PT at your first post-operative visit. Patient may ambulate as tolerated-encourage self care (at least every 2-3 hours while awake) with walker or cane Maintain Aquacel (waterproof) dressing to operative wound (will be removed by surgeon at first office visit) Shower with Aquacel dressing in place-if Aquacel integrity compromised, remove and apply dry sterile dressing and notify Orthopedist. DO NOT SHOWER unless Orthopedists approves without Aquacel dressing Keep cast intact and dry. Non- weight bearing on left wrist. CONTACT THE OFFICE FOR ANY CHANGE IN YOUR CONDITION (for example-fever greater than 102 degrees, excessive bleeding from operative site, purulent drainage, severe swelling or pain) GO TO THE EMERGENCY ROOM IF THERE IS A MEDICAL EMERGENCY Hip Precautions: * Keep a rolled towel under affected heel while in bed or chair (to keep knee in extension) * Dependent upon approach: * Posterior - do not cross legs; do not sit on low chairs or toilets. * If you have any questions, please do not hesitate to call the office - [phone]. Referrals: Noah Holden MD [Staff Physician] - - Home Medications Comprehensive Discharge Medication List: Ambulatory Orders Escitalopram Oxalate [Lexapro -] 10 mg PO HS 11/16/17 Aspirin Coated [Ecotrin -] 81 mg PO DAILY tablet.ec 11/22/17 Clonazepam [Klonopin] 2 mg PO HS 11/17/18 Alprazolam [Xanax] 3 mg PO HS 11/18/18 Gabapentin 300 mg PO BID 11/22/18 Gabapentin [Neurontin] 600 mg PO HS 11/22/18 Divalproex *ER* [Depakote *ER* -] 1,500 mg PO HS tablet.sa 11/24/18 Acetaminophen 1,000 mg PO ASDIR PRN 11/25/18 Diphenhydramine [Benadryl Capsule -] 100 mg PO HS 11/25/18 Simvastatin 40 mg PO HS 11/25/18 Nicotine Patch [Nicoderm Patch -] 21 mg TD DAILY 12/02/18 Aspirin [ASA -] 325 mg PO DAILY@0800 tablet 12/05/18 Mag Hydrox/Al Hydrox/Simeth [Mylanta Oral Suspension -] 30 ml PO Q4H PRN cup Magnesium Hydrox 2400MG/30Ml [Milk of Magnesia -] 30 ml PO PRN PRN cup Multivitamins [Multivit ([facility] Formulary)] 1 tab PO DAILY tab 12/08/18 Pantoprazole Sodium [Protonix -] 40 mg PO DAILY tablet.ec 12/08/18 Sennosides/Docusate Sodium [Pericolace -] 2 tablet PO BID tablet 12/08/18 oxyCODONE HCL [Roxicodone -] 10 mg PO Q6H PRN tablet MDD 40mg 12/08/18 Problem List - Problems (1) Weakness Code(s): R53.1 - WEAKNESS (2) Wrist fracture, left Code(s): S62.102A - FRACTURE OF UNSP CARPAL BONE, LEFT WRIST, INIT FOR CLOS FX (3) Leukocytosis Code(s): D72.829 - ELEVATED WHITE BLOOD CELL COUNT, UNSPECIFIED (4) COPD (chronic obstructive pulmonary disease) case management patient Code(s): LTJ7631 - (5) HTN (hypertension) Code(s): I10 - ESSENTIAL (PRIMARY) HYPERTENSION (6) Sinus bradycardia Code(s): R00.1 - BRADYCARDIA, UNSPECIFIED (7) Anxiety Code(s): F41.9 - ANXIETY DISORDER, UNSPECIFIED (8) Carcinoma of prostate Code(s): C61 - MALIGNANT NEOPLASM OF PROSTATE (9) HLD (hyperlipidemia) Code(s): E78.5 - HYPERLIPIDEMIA, UNSPECIFIED (10) History of CVA (cerebrovascular accident) Code(s): Z86.73 - PRSNL HX OF TIA (TIA), AND CEREB INFRC W/O RESID DEFICITS This patient is new to me today: Yes Date on this admission: 12/08/18 Emergency Visit: Yes ED Registration Date: 12/02/18 Care time: The patient presented to the Emergency Department on the above date and was hospitalized for further evaluation of their emergent condition. Critical Care patient: No - Discharge Referral Referred to [facility] Med P.C.: No
[2018-12-08 13:53] VITALS: BP 131/70; PULSE 74; TEMP 98.9
--- NOTE | 2018-12-10 15:07 | PATH ---
Surgical Pathology Report Patient Name: MICHAEL CHRISTENSEN Med. Rec. #: [id number] /Age/Gender: 1950 (Age: 68) / M Account: [id number] Location: [facility] MED-SURG Taken: 12/05/2018 Received: 12/05/2018 Reported: 12/10/2018 Physicians: Noah Holden M.D. Specimen(s) Received RIGHT FEMORAL HEAD Clinical History Osteoarthritis right hip Final Diagnosis SHOULDER, LEFT, ARTHROSCOPIC SHAVINGS: FIBROSYNOVIAL TISSUE, FIBROADIPOSE TISSUE AND SKELETAL MUSCLE. Electronically Signed Yumiko Harkins M.D. Gross Description Received in formalin, labeled "right femoral head," is a 5.2 x 5.0 x 4.7 cm. femoral head with a 1.3 cm in length portion of femoral neck attached. The margin of resection is smooth. There is a 4.5 cm in greatest dimension area of eburnation present. The remaining articular surface is frye-yellow and focally granular. The underlying trabecular bone is yellow and hard. A u.s. representative section is submitted in one cassette, following decalcification. /12/08/2018 [facility]08[facility]2018
== END 2018-12-08 15:01 | DRG 982 ==
LOC: FER 08:40 → SUPCPDRO 08:40 → FM/S 10:19
PROVIDERS: ADMIT Internal Medicine; ATTEND Nurse Practitioner Acute Care
PROC: 2W3DX1Z Immobilization of Left Lower Arm using Splint (ICD-10-PCS; 2018-12-02)
PROC: 2W3DX2Z Immobilization of Left Lower Arm using Cast (ICD-10-PCS; 2018-12-05)
PROC: 0SR90JZ Replacement of Right Hip Joint with Synthetic Substitute, Open Approach (ICD-10-PCS; principal; 2018-12-05 10:00)
PROC: 8E0Y0CZ Robotic Assisted Procedure of Lower Extremity, Open Approach (ICD-10-PCS; 2018-12-05 10:00)
DX: I69.398 Other sequelae of cerebral infarction (principal); S52.592A Other fractures of lower end of left radius, initial encounter for closed fracture; I69.354 Hemiplegia and hemiparesis following cerebral infarction affecting left non-dominant side; J84.9 Interstitial pulmonary disease, unspecified; I10 Essential (primary) hypertension; E78.5 Hyperlipidemia, unspecified; M06.9 Rheumatoid arthritis, unspecified; F31.9 Bipolar disorder, unspecified; R00.1 Bradycardia, unspecified; J44.9 Chronic obstructive pulmonary disease, unspecified; G62.9 Polyneuropathy, unspecified; I45.10 Unspecified right bundle-branch block; F41.8 Other specified anxiety disorders; M54.5 Low back pain; M16.11 Unilateral primary osteoarthritis, right hip; D72.828 Other elevated white blood cell count; Z85.46 Personal history of malignant neoplasm of prostate; W18.39XA Other fall on same level, initial encounter; Y92.098 Other place in other non-institutional residence as the place of occurrence of the external cause; Z81.4 Family history of other substance abuse and dependence; Z86.59 Personal history of other mental and behavioral disorders
CPT/HCPCS: 36415; 70450-TC; 70551-TC; 71045-TC-FY; 73110-TC-LT-FY; 73130-TC-LT-FY; 73502-TC-RT-FY; 73523-TC-FY; 80053; 81003; 83735; 85025; 85027; 85610; 85730; 86850; 86900; 86901; 88305-TC; 88311-TC; 93005; 94640; 94760; 97116-GP; 97161-GP; 97162-GP; 99284-25; J0131; J7030

== ENCOUNTER 2018-12-31 11:03 | Emergency (ER) | payer OTHER, BC ==
--- NOTE | 2018-12-31 11:11 | PDOC ---
History of Present Illness - General Stated Complaint: FALL Time Seen by Provider: 12/31/18 11:09 - History of Present Illness Initial Comments: 12/31/18 11:11 Mr. Garber is a 68 yo male w/ pmh of prostate cancer, osteoarthritis, HTN, COPD, recent CVA 3 months ago (s/p rehab w/ full recovery to baseline) and frequent falls who presents for evaluation of mechanical fall around 9am this morning. Patient denies any preceding symptoms or LOC however reports hitting back of head. Denies any pain at this time. Patient was immediately helped up and sent for presentation. The patient denies chest pain, shortness of breath, headache and dizziness. Denies fever, chills, nausea, vomit, diarrhea and constipation. Denies dysuria, frequency, urgency and hematuria. Past History - Past Medical History Allergies/Adverse Reactions: Allergies Allergy/AdvReac Type Severity Reaction Status Date / Time Penicillins Allergy Verified 12/31/18 11:12 Home Medications: Ambulatory Orders Escitalopram Oxalate [Lexapro -] 10 mg PO HS 11/16/17 Clonazepam [Klonopin] 0.5 mg PO HS 11/17/18 Alprazolam [Xanax] 1 mg PO Q8H PRN 11/18/18 Gabapentin 300 mg PO BID 11/22/18 Divalproex *ER* [Depakote *ER* -] 1,500 mg PO HS tablet.sa 11/24/18 Acetaminophen 1,000 mg PO ASDIR PRN 11/25/18 Nicotine Patch [Nicoderm Patch -] 21 mg TD DAILY 12/02/18 Multivitamins [Multivit ([facility] Formulary)] 1 tab PO DAILY tab 12/08/18 Ciprofloxacin [Cipro (Restricted To Id)] 500 mg PO Q12H 12/31/18 Omeprazole 20 mg PO DAILY 12/31/18 Polyethylene Glycol 3350 [Glycolax] 17 gm PO HS 12/31/18 Tramadol HCl 25 mg PO Q8H PRN 12/31/18 Anemia: No Asthma: No Cancer: Yes (BASAL CELL, PROSTATE CA) Cardiac Disorders: No CVA: Yes (R Hemiparesis 11/27,IMPROVED BUT NOW R/T RIGHT HIP ARTHRITIS) COPD: No CHF: No Dementia: No Diabetes: No GI Disorders: Yes (RECTAL BLEEDING, COLON POLYP) Disorders: Yes (PROSTATE CA SEEDING AND RADIATION 2011) HTN: No Hypercholesterolemia: Yes Liver Disease: No Psychiatric Problems: Yes Seizures: No Thyroid Disease: No - Surgical History Abdominal Surgery: Yes (HERNIA REPAIR 2007) Appendectomy: No Cardiac Surgery: No Cholecystectomy: No Lung Surgery: No Neurologic Surgery: No Orthopedic Surgery: No - Immunization History Immunization Up to Date: Yes - Suicide/Smoking/Psychosocial Hx Smoking History: Former smoker Have you smoked in the past 12 months: No Number of Cigarettes Smoked Daily: 10 'Breaking Loose' booklet given: 12/27/17 Hx Alcohol Use: No Drug/Substance Use Hx: No Substance Use Type: None Hx Substance Use Treatment: No Review of Systems - Review of Systems Comments:: 12/31/18 11:16 GENERAL/CONSTITUTIONAL: No fever or chills. No weakness. HEAD, EYES, EARS, NOSE AND THROAT: No change in vision. No ear pain or discharge. No sore throat. CARDIOVASCULAR: No chest pain or shortness of breath RESPIRATORY: No cough, wheezing, or hemoptysis. GASTROINTESTINAL: No nausea, vomiting, diarrhea or constipation. GENITOURINARY: No dysuria, frequency, or change in urination. MUSCULOSKELETAL: No joint or muscle swelling or pain. No neck or back pain. SKIN: No rash NEUROLOGIC: No headache, vertigo, loss of consciousness, or change in strength/ sensation. ENDOCRINE: No increased thirst. No abnormal weight change HEMATOLOGIC/LYMPHATIC: No anemia, easy bleeding, or history of blood clots. ALLERGIC/IMMUNOLOGIC: No hives or skin allergy. *Physical Exam - Physical Exam Comments: 12/31/18 11:16 GENERAL: Awake, alert, and fully oriented, in no acute distress HEAD: No signs of trauma, normocephalic, atraumatic EYES: PERRLA, EOMI, sclera anicteric, conjunctiva clear ENT: Auricles normal inspection, hearing grossly normal, nares patent, oropharynx clear without exudates. Moist mucosa NECK: Normal ROM, supple, no lymphadenopathy, JVD, or masses LUNGS: No distress, speaks full sentences, clear to auscultation bilaterally HEART: Regular rate and rhythm, normal S1 and S2, no murmurs, rubs or gallops, peripheral pulses normal and equal bilaterally. ABDOMEN: Soft, nontender, normoactive bowel sounds. No guarding, no rebound. No masses EXTREMITIES: +Cast from prior fall noted to [place]. Otherwise normal inspection, normal range of motion, no edema. No clubbing or cyanosis. NEUROLOGICAL: Cranial nerves II through XII grossly intact. Normal speech, no focal sensorimotor deficits SKIN: Warm, Dry, normal turgor, no rashes or lesions noted. Medical Decision Making - Medical Decision Making 12/31/18 11:28 Mr. Garber is a 68 yo male w/ pmh as described who presents for evaluation s/ p mechanical fall. Patient will be evaluated for acute process w/ Head/C-spine CT; denies any pain at this time. XR also ordered hip/pelvis given patient's recent hip replacement. 12/31/18 15:02 Head/C-Spine/XR all negative. No concern for acute process at this time. Discharging patient to home for further outpatient management as needed. *DC/Admit/Observation/Transfer Diagnosis at time of Disposition: Fall Qualifiers: Encounter type: initial encounter Qualified Code(s): W19.XXXA - Unspecified fall, initial encounter - Discharge Dispostion Disposition: HOME - Referrals Referrals: Star Emery MD [Primary Care Provider] - - Patient Instructions Printed Discharge Instructions: How to Prevent Falls Additional Instructions: You were evaluated today in the ER for your fall. We performed Head and C-spine CTs as well as hip Xray which were all negative and we believe you are safe for discharge at this time. Please follow-up with primary care provider later this week for further evaluation. You may take over the counter tylenol per package instructions for pain relief as needed. Return to ER if any change in mentation , fever, chills, excessive sleepiness, or other concerning symptoms. - Post Discharge Activity
[2018-12-31 11:16] VITALS: BP 140/78; PULSE 75; TEMP 97.8; BMI 23.7
--- NOTE | 2018-12-31 12:06 | PDOC ---
Documentation entered by Christa Perry SCRIBE, acting as scribe for Nikolas Xie MD. Nikolas Xie MD: This documentation has been prepared by the Orlando villegas Sammi, SCRIBE, under my direction and personally reviewed by me in its entirety. I confirm that the documentation accurately reflects all work, treatment, procedures, and medical decision making performed by me. Attending Attestation - Resident Resident Name: Av Rebolledo - ED Attending Attestation I have performed the following: I have examined & evaluated the patient, The case was reviewed & discussed with the resident, I agree w/resident's findings & plan, Exceptions are as noted - HPI HPI: 12/31/18 11:38 The patient is a 68 year old male, with a significant PMH of prostate CA, CVA, and frequent falls, who was BIBA to the emergency department for evaluation s/p mechanical fall earlier today. Denies LOC. The patient states he did not fully lock his walker causing him to fall back, hitting the back of his head. He denies any complaints at this time other than mild R hip discomfort, where he recently had a hip replacement. Denies [place]/N/V. Denies neck/back pain. Denies CP/ SOB/palpitations. Denies lightheadedness/dizziness. Allergies: NKA PCP: [facility] - Physicial Exam PE: 12/31/18 12:10 GENERAL: Awake, alert, and fully oriented, in no acute distress. HEAD: No signs of trauma EYES: PERRLA, EOMI, sclera anicteric, conjunctiva clear ENT: Auricles normal inspection, hearing grossly normal, nares patent, oropharynx clear without exudates. Moist mucosa NECK: Nontender, no stepoffs, Normal ROM, supple, no lymphadenopathy, JVD, or masses LUNGS: Breath sounds equal, clear to auscultation bilaterally. No wheezes, and no crackles HEART: Regular rate and rhythm, normal S1 and S2, no murmurs, rubs or gallops ABDOMEN: Soft, nontender, normoactive bowel sounds. No guarding, no rebound. No masses EXTREMITIES: Normal range of motion, no edema. No clubbing or cyanosis. No cords, erythema, or tenderness NEUROLOGICAL: Cranial nerves II through XII intact. 5/5 strength and sensation in all extremities, Normal speech, normal gait, normal cerebellar function SKIN: Warm, Dry, normal turgor, no rashes or lesions noted. - Medical Decision Making 12/31/18 12:10 68 M with mechanical fall. - CT head/c-spine - XR R hip CTs and XR negative Pt is well appearing, with normal vitals. Clinically stable for DC at this time. I discussed the physical exam findings, ancillary test results and final diagnoses with the patient. I answered all of the patient's questions. The patient was satisfied with the care received and felt comfortable with the discharge plan and treatment plan. The patient agrees to follow up with the primary care physician within 24-72 hours.
== END 2018-12-31 17:17 | disposition home or self-care (01) ==
LOC: JER 11:03
DX: Z04.3 Encounter for examination and observation following other accident (principal); I10 Essential (primary) hypertension; J44.9 Chronic obstructive pulmonary disease, unspecified; M19.90 Unspecified osteoarthritis, unspecified site; E78.00 Pure hypercholesterolemia, unspecified; Z92.3 Personal history of irradiation; Z85.46 Personal history of malignant neoplasm of prostate; Z85.828 Personal history of other malignant neoplasm of skin; Z86.73 Personal history of transient ischemic attack (TIA), and cerebral infarction without residual deficits; Z96.641 Presence of right artificial hip joint; Z87.891 Personal history of nicotine dependence; Z99.89 Dependence on other enabling machines and devices; W01.0XXA Fall on same level from slipping, tripping and stumbling without subsequent striking against object, initial encounter; Z91.81 History of falling; Y93.01 Activity, walking, marching and hiking; Y92.89 Other specified places as the place of occurrence of the external cause
CPT/HCPCS: 70450-TC; 72125-TC; 73523-TC-FY; 99281-25